=== PATIENT | male | born 1955 | race Caucasian/White ===

== ENCOUNTER 2022-12-20 09:15 | Outpatient (OUT) | payer MEDICARE, OTHER, SELFPAY ==
--- NOTE | 2022-12-20 09:39 | XR_ITS ---
The [address] [address] Patient Name: TY RANGEL MRN: [id number] date: 1955 Sex: M Assigned Patient Location: RAD Current Patient Location: [facility] Accession/Order Number: [id number] Exam Date: 12/20/2022 09:37 Report Date: 12/20/2022 10:35 At the request of: BOBO BARTON Procedure: XR foot LT min 3V PROCEDURE: XR foot LT min 3V COMPARISON: None. HISTORY: LEFT FOOT PAIN FINDINGS: BONES:No acute fracture or dislocation. Moderate to severe diffuse degenerative changes with joint space narrowing and marginal osteophyte formation. Bony remodeling of the first metatarsal-phalangeal joint. There is varus angulation of the second third and fourth proximal phalanges in relation to the metatarsals SOFT TISSUES:Negative. No visible soft tissue swelling. EFFUSION:None visible. OTHER: Negative. XR/XR foot LT min 3V IMPRESSION: Moderate to severe diffuse degenerative changes Electronically authenticated by: SOTERO MONTERROSO Date: 12/20/2022 10:35
== END 2022-12-20 09:16 | disposition home or self-care (01) ==
LOC: RAD 09:19
PROVIDERS: Visit Provider Podiatrist Foot & Ankle Surgery
DX: M19.072 Primary osteoarthritis, left ankle and foot (principal)
CPT/HCPCS: 73630

== ENCOUNTER 2023-04-02 09:20 | Outpatient (OUT) | payer MEDICARE, OTHER, SELFPAY ==
--- NOTE | 2023-04-02 09:24 | ECG_ITS ---
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
[2023-04-02 10:30] LABS: Anion Gap 11.1; Calcium 9.1 mg/dL (8.5-10.1); Carbon Dioxide 29.1 mmol/L (21.0-32.0); Chloride 103 mmol/L (98-107); Estimated GFR (African America >60 (>=60); Estimated GFR (Non-African Ame >60 (>=60); Glucose 108 mg/dL (74-106); Potassium 4.2 mmol/L (3.5-5.1); Sodium 139 mmol/L (136-145)
== END 2023-04-02 09:21 | disposition home or self-care (01) ==
LOC: PST 09:22
PROVIDERS: Visit Provider Podiatrist Foot & Ankle Surgery
DX: Z01.810 Encounter for preprocedural cardiovascular examination (principal); Z01.812 Encounter for preprocedural laboratory examination
CPT/HCPCS: 36415; 80048; 93005; G0463

== ENCOUNTER 2023-06-07 09:09 | Outpatient (OUT) | payer MEDICARE, OTHER, SELFPAY ==
--- OUTSIDE RECORDS SUMMARY | 2023-06-07 09:13 | XMS_ITS | CCD ---
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 Recently Administ ered Medications (unrecognized section and content) Medication Order 08/14/2022 08/15/2022 08/16/2022 ketorolac (TORADOL) injection 30 mg (COMPLETED) 30 mg, IntraMUSCular, ONCE, 1 dose, On Sun08/16/22 at 2100, Do not administer for more than 5 days. 2100 (Given - Provid er: Mary Gaines RN) orphenadrine (NORFLEX) injection 60 mg (COMPLETED) 60 mg, IntraMUSCular, ONCE, 1 dose, On Sun08/16/22 at 2100 2101 (Given - Provid er: Mary Gaines RN) FOR RECORDS PERTAINING TO PATIENTS WHO ARE OR HAVE BEEN ENROLLED IN A CHEMICAL DEPENDENCY/SUBSTANCEABUSE PROGRAM, SOME INFORMATION MAY BE OMITTED. This clinical summary was aggregated from multiple sources. Caution should be exercised in using it in the provision of clinical care. This summary normalizes information from multiple sources, and as a consequence, information in this document may materially change the coding, format and clinical context of patient data. In addition, data may be omitted in some cases. CLINICAL DECISIONS SHOULD BE BASED ON THE PRIMARY CLINICAL RECORDS. [facility] [employer] [facility]. provides no warranty or guarantee of the accuracy or completeness of information in this document.
--- NOTE | 2023-06-07 09:41 | P.GSHP_ITS ---
History of Present Illness History of Present Illness Chief complaint: hallux rigidus left foot Narrative: Patient presents for preadmission testing. Patient reports a long history of left foot pain. The patient states he has toe deformities and a bunion which causes pain when he wears most footwear and is weightbearing. He states he does take Celebrex which helps with his discomfort. He denies numbness, tingling, weakness, or any other complaints. Review of Systems ROS Narrative REVIEW OF SYSTEMS: Negative except as stated in HPI, ten or more systems reviewed. Constitutional: No fever , chills, weakness ENT: No sore throat or epistaxis Cardiovascular: No edema, chest pain, palpitations, or activity intolerance Respiratory: No shortness of breath, cough, or wheezing Gastrointestinal: No abdominal pain, constipation, diarrhea, or vomiting Genitourinary: No dysuria or hematuria Neurological: No numbness, tingling, weakness, or headache Psychiatric: No mood changes [facility] Medical History (Updated 04/02/23 @ 10:10 by Kathy Valdez NP) Primary osteoarthritis, left ankle and foot ?M19.072 - Primary osteoarthritis, left ankle and foot (ICD-10) Hammertoe ?M20.40 - Other hammer toe(s) (acquired), unspecified foot (ICD-10) Toe deformity ?M20.60 - Acquired deformities of toe(s), unspecified, unspecified foot (ICD- 10) Hallux varus (acquired), left foot ?M20.32 - Hallux varus (acquired), left foot (ICD-10) Hallux rigidus, left foot ?M20.22 - Hallux rigidus, left foot (ICD-10) Left foot pain ?M79.672 - Pain in left foot (ICD-10) Arthritis ?M19.90 - Unspecified osteoarthritis, unspecified site (ICD-10) Pneumonia ?J18.9 - Pneumonia, unspecified organism (ICD-10) GERD (gastroesophageal reflux disease) ?K21.9 - Gastro-esophageal reflux disease without esophagitis (ICD-10) Hypertension ?I10 - Essential (primary) hypertension (ICD-10) High cholesterol ?E78.00 - Pure hypercholesterolemia, unspecified (ICD-10) Heart murmur ?R01.1 - Cardiac murmur, unspecified (ICD-10) Prediabetes ?R73.03 - Prediabetes (ICD-10) Hearing loss ?H91.90 - Unspecified hearing loss, unspecified ear (ICD-10) Surgical History (Updated 04/02/23 @ 09:40 by Kathy Valdez NP) H/O of nasal cauterization ?Z98.890 - Other specified postprocedural states (ICD-10) History of hernia repair ?Z98.890 - Other specified postprocedural states (ICD-10) ?Z87.19 - Personal history of other diseases of the digestive system (ICD-10) Family History (Updated 04/02/23 @ 09:40 by Kathy Valdez NP) Other Family history of pulmonary embolism Family history of stroke Social History (Updated 04/02/23 @ 09:35 by Kathy Valdez NP) Within the past year, how often did you have a drink containing alcohol: 2-3 times a week Smoking status: Former smoker Previous occupational history: [employer] Highest level of school completed/degree received: Associate degree: occupational, technical, vocational program Meds Home Medications and Allergies Home Medications Medication Instructions Recorded Confirmed Type arginine 1,000 mg-B12 16.6 1 tab PO DAILY 04/02/23 06/07/23 History mcg-folic acid 66.6 mcg-B6 3.3 mg tablet (L-Arginine Accumulate) atorvastatin 80 mg tablet 80 mg PO DAILY 04/02/23 06/07/23 History celecoxib 100 mg capsule 200 mg PO Q12H 04/02/23 06/07/23 History cetirizine 10 mg tablet 10 mg PO DAILY PRN allergy symptoms 04/02/23 06/07/23 History lisinopril 20 mg tablet 20 mg PO DAILY 04/02/23 06/07/23 History lutein 6 mg capsule 6 mg PO DAILY 04/02/23 06/07/23 History metoprolol succinate 50 mg 50 mg PO DAILY 04/02/23 06/07/23 History tablet,extended release 24 hr pantoprazole 20 mg tablet,delayed 20 mg PO DAILY 04/02/23 06/07/23 History release tadalafil 5 mg tablet 5 mg PO DAILY PRN sexual activity 04/02/23 06/07/23 History alendronate 70 mg tablet 70 mg PO QWEEK 06/07/23 06/07/23 History cholecalciferol (vitamin D3) 125 5,000 unit PO DAILY 06/07/23 06/07/23 History mcg (5,000 unit) tablet Allergies Allergy/AdvReac Type Severity Reaction Status Date / Time No Known Drug Allergies Allergy Verified 06/07/23 09:21 Exam Narrative Exam Narrative: Constitutional: Awake, alert, comfortable, well-appearing, nontoxic, interactive, vital signs as charted Head: Normocephalic, atraumatic Neck: Supple, normal appearance, normal range of motion, no meningeal signs, no lymphadenopathy Respiratory: No respiratory distress, breath sounds clear Cardiovascular: Regular rate and rhythm, strong and regular heart tones Musculoskeletal: Left foot: Obvious deformities of all toes with obvious hallux varus, limited range of motion of the 1st MPJ and pain with palpation, good capillary refill, sensation intact Skin: No rashes or induration, no lesions, only visible skin inspected Neuro: No neurological deficits, normal sensation Psychiatric: Oriented ?3, normal affect Assessment and Plan Assessment and Plan (1) Primary osteoarthritis, left ankle and foot: (2) Hammertoe: (3) Toe deformity: (4) Hallux varus (acquired), left foot: (5) Hallux rigidus, left foot: (6) Left foot pain: Plan Left 1st metatarsal phalangeal joint fusion, osteotomies, hammertoe repairs of toes two through five, plantar plate repair Scheduled with Dr. Rivera 06/21/2023.
[2023-06-07 10:52] LABS: Anion Gap 12.6; BUN Creatinine Ratio 19.6; Calcium 9.4 mg/dL (8.5-10.1); Carbon Dioxide 25.2 mmol/L (21.0-32.0); Chloride 102 mmol/L (98-107); Estimated GFR (African America >60 (>=60); Estimated GFR (Non-African Ame >60 (>=60); Glucose 106 mg/dL (74-106); Potassium 3.8 mmol/L (3.5-5.1); Sodium 136 mmol/L (136-145)
== END 2023-06-07 09:10 | disposition home or self-care (01) ==
LOC: PST 09:09
PROVIDERS: Visit Provider Podiatrist Foot & Ankle Surgery
DX: Z01.812 Encounter for preprocedural laboratory examination (principal); Z01.818 Encounter for other preprocedural examination; M20.22 Hallux rigidus, left foot; M89.70 Major osseous defect, unspecified site
CPT/HCPCS: 80048; G0463

== ENCOUNTER 2023-06-21 08:33 | Day surgery (SDC) | payer MEDICARE, OTHER, SELFPAY ==
[2023-06-07 09:35] VITALS: BP 127/72; PULSE 72; RESP 16; TEMP 36.2; O2SAT 95; BMI 26.9
[2023-06-21] VITALS (12 sets, daily range): BP systolic 107–151; BP diastolic 49–96; PULSE 84–110; RESP 14–36; TEMP 36.3–37.2; O2SAT 90–96; BMI 26.2
--- NOTE | 2023-06-21 | FL_ITS ---
[address] [address] Patient Name: TY RANGEL MRN: [id number] date: 1955 Sex: M Assigned Patient Location: [facility] Current Patient Location: [facility] Accession/Order Number: [id number] Exam Date: 06/21/2023 13:50 Report Date: 06/22/2023 13:47 At the request of: BOBO BARTON Procedure: FL fluoroscopy <1hr NON-READ EXAM: FL fluoroscopy <1hr NON-READ HISTORY: TECHNIQUE: FINDINGS: Please see Operative Report. Electronically authenticated by: RADIOLOGIST NO Date: 06/22/2023 13:47
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
[2023-06-21 08:45] LABS: Basophils Percent Auto 0.4 % (0.2-2.0); Eosinophils Absolute Auto 0.1 10^3/uL (0.0-0.7); Eosinophils Percent Auto 1.5 % (0.9-7.0); Hematocrit 45.9 % (42.0-54.0); Hemoglobin 15.1 g/dL (14.0-18.0); Immature Granulocytes Abs Auto 0.02 10^3/uL (0.00-0.03); Immature Granulocytes Pct Auto 0.2 % (0.0-0.5); Lymphocytes Absolute Auto 1.9 10^3/uL (1.2-3.8); Lymphocytes Percent Auto 19.6 % (20.5-60.0); Mean Corpuscular HGB Conc 32.9 g/dL (29.9-35.2); Mean Corpuscular Hemoglobin 30.4 pg (25.9-34.0); Mean Corpuscular Volume 92.4 fL (80.0-94.0); Mean Platelet Volume 10.4 fL (9.5-13.5); Monocytes Absolute Auto 0.7 10^3/uL (0.3-0.8); Monocytes Percent Auto 6.9 % (1.7-12.0); Neutrophils Absolute Auto 6.8 10^3/uL (1.4-6.5); Neutrophils Percent Auto 71.4 % (43.0-75.0); Platelet Count 238 10^3/uL (150-450); Red Blood Count 4.97 10^6/uL (4.70-6.10); Red Cell Distribution Width 13.1 % (11.0-15.0); White Blood Count 9.6 10^3/uL (4.0-11.0)
[2023-06-21 08:53] LABS: Glucometer 123 mg/dL (74-106)
[2023-06-21] MEDS: LACTATED RINGER'S SOLUTION 1,000 ML 50 ML IV (09:01)
[2023-06-21] MEDS: CEFAZOLIN SODIUM/DEXTROSE,ISO 2 GM/50 ML PIGGYBACK IV (13:25)
[2023-06-21] MEDS: THROMBI-GEL SIZE 40 HEMOSTAT 1 EACH TOPICAL (14:24)
[2023-06-21] MEDS: LACTATED RINGER'S SOLUTION 1,000 ML 125 ML IV (15:03)
--- NOTE | 2023-06-21 16:24 | P.ORON_ITS ---
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 First metatarsal phalangeal joint fusion 2. incision of 1st metatarsal with curettage grafting and drilling of osseous deficit 3. Correction of hammertoes 2-5 with PIPJ arthroplasty 4. Extensor tendon lengthening for metatarsal phalangeal joint contractures 1-3 5. Ruston of distal tibial bone graft 6. Application of short leg splint 7. Intraoperative fluoroscopy examination *All procedures were performed on the LEFT foot INDICATION FOR PROCEDURE: patient is a 68-year-old male who was referred to me by his local employment advisor for surgical consultation. Patient relates that he has had deformity of his left forefoot for 10+ years. He relates during that time it has progressively gotten worse in dysfunction, pain and magnitude of deformity. Despite nonsurgical treatment provided by his local employment advisor his symptoms did not improve therefore was referred to me. 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 There is limited range of motion in the deformities of toes 1- 3were rigid while the 4th and 5th toes were reducible. Radiographically ( x-ray and CT scan) there was cystic formation most notably of his 1st metatarsal head 2nd metatarsal head as well as various midfoot bones. Of note the 1st met head cysts were substantially the largest incorporating much of the metatarsal head and into the shaft of the metatarsal. We discussed 1st MPJ fusion however given the degree of osseous deficit I was concerned of increased chance of nonunion and need for repeat revision therefore we discussed other options including 3-D printed implant and the risks and benefits associated. After much consideration patient wished to undergo the above procedures. INTRAOPERATIVE FINDINGS: 1st metatarsophalangeal joint with end-stage arthrosis with periarticular osteophytes and full-thickness cartilage degeneration and rigid varus defformity. there was difficulty accessing the 1st metatarsal phalangeal joint due to contracture of the extensor tendon. During the reaming process large fluid and soft tissue filled cyst were encountered from the metatarsal head into the mid shaft. Cortical bone quality however was good. In addition the 1st ray was substantially longer than the 2nd requiring the 1st ray to be shortened to re-create a relatively normal metatarsal parabola. lesser metatarsal osteotomy was avoided given the cystic formation noted on the CT scan I was concerned for the ability to obtain stable fixation therefore soft tissue balancing including extensor tendon lengthening and capsulotomy was performed both of which were contracted in varus. Contractures at the PIPJ's of toes two through five were noted and were corrected with PIPJ arthroplasty. PROCEDURE IN DETAIL: Patient was identified in pre op and consent was reviewed. Correct side and site were identified and marked. Pre-op antibiotics were started. Patient was brought to OR suite and place on table in a supine position. General anesthesia was administered. A tourniquet was applied. Operative extremity was prepped and draped in usual sterile fashion. Formal time-out was performed and the foot/ankle were exsanguinated and tourniquet inflated. Incision created over dorsal aspect of the 1st MPJ. Bleeders coagulated. Capsulotomy performed however I was unable to insert the McGlammry elevator due to contracture of the extensor tendon. Therefore the extensive tendon was tenotomized in a Z type fashion and later repaired. I was unable to access the j oint with a McGlamry being inserted into 1st MPJ. Guide Pin place in 1st metatarsal head. Conical reamers used on 1st metatarsal head to remove cartilage and subchondral bone. large cystic formation was encountered and the guide pin was removed. with the use of curettes and rongeurs the cysts were aggressively debrided and fibrous-type soft tissue was excised and passed the back table and sent as specimen. the 1st metatarsal cyst was drilled with 2.0 mm drill bit and irrigated copiously. Then on the back table bone void filler was prepared. during this time the proximal phalanx was prepared for fusion using conical reamers to accommodate the three printed implant. 2.0 mm drill bit was also used on the proximal phalanx and the surgical site was irrigated copiously. The bone void filler was then injected into the 1st metatarsal and allowed to dry. Once dry the deformity was attempted to be reduced and although could be improved the 1st ray remained very long therefore a dorsal to plantar osteotomy was performed of the metatarsal head excising the distal aspect thereby shortening the 1st ray. The conical reamer was used once again on the 1st metatarsal to accommodate the three printed implant. Once the joint was prepared trial implants were used and was noted that the small implant best accommodated the 1st MPJ and allowed deformity correction in all planes. A 2 cm incision was created 2 cm proximal to the ankle joint and just medial to the tibialis anterior tendon. Combination sharp blunt dissection gained access to the distal tibial metaphysis and the periosteum was reflected carefully. An 8 mm bone harvester was drilled into the distal tibial metaphysis and was passed several times to obtain as much bone graft as possible. Gelfoam was then packed into the harvest site and deep closure with absorbable suture was performed followed by closure with skin suture. autograft was then mixed with Proteios & CellConcentrate allograft. The bone graft mixture was then packed into cystic formation of the 1st met head as well as onto the base of the proximal phalanx. Most the bone graft was used to pack into the three printed implant. Three printed implant was then placed and the toe was reduced. I held the toe in reductionn while my virtual assistant for advertisers pins the implant in place. Ensuring maintenance of correction I maintained correction while my virtual assistant for advertisers contoured the dorsal aspe ct of the proximal phalanx and metatarsal to accommodate plate fixation. A 3.5 mm locking 1st MPJ plate was then provisionally fixated and fluoroscopy confirmed deformity correction and satisfactory hardware position. The plate was then permanently fixated accordingly with locking and nonlocking screws in the temporary fixation was removed. surgical site was irrigated. The remaining bone graft was then packed around the implant. fluoroscopy confirmed hardware placement and satisfactory reduction of the great toe. Extensor tendon was then repaired at physiologic tension using absorbable suture. Deep fascia was then closed to prevent any loss of bone graft. With attention to the 2nd digit a dorsal incision was created over the PIPJ and extended to the metatarsal phalangeal joint. Sharp and blunt dissection down to the extensor tendon was performed. Tthe extensor tendon was contracted therefore tenotomized in a Z-type fashion for later repair. Periarticular ligaments surrounding the PIPJ were then released sharply. A sagittal saw was used to remove the proximal phalanx head. although the contracture at the PIPJ was now corrected contracture at the metatarsophalangeal joint persisted therefore the incision was extended more proximally and capsulotomy was performed while protecting the proximal stump of the extensor tendon. McGlamry elevator was then used to further release periarticular soft tissues. I was unable to correct the remaining deformity manually. A 0.062 inch K wire was used then to pin the toe spanning the PIPJ as well as the MPJ while holding the toe in a reduced position parallel to the great toe. The site was flushed with sterile saline. The tendon was repaired with absorbable suture in a lengthened but physiologic position. With attention to the 3rd digit a dorsal incision was created over the PIPJ and extended to the metatarsal phalangeal joint. Sharp and blunt dissection down to the extensor tendon was performed. Tthe extensor tendon was contracted therefore tenotomized in a Z-type fashion for later repair. Periarticular ligaments surrounding the PIPJ were then released sharply. A sagittal saw was used to remove the proximal phalanx head. although the contracture at the PIPJ was now corrected contracture at the metatarsophalangeal joint persisted therefore the incision was extended more proximally and capsulotomy was performed while protecting the proximal stump of the extensor tendon. McGlamry elevator was then used to further release periarticular soft tissues. I was unable to correct the remaining deformity manually. A 0.062 inch K wire was used then to pin the toe spanning the PIPJ as well as the MPJ while holding the toe in a reduced position parallel to the 2nd toe. The site was flushed with sterile saline. The tendon was repaired with absorbable suture in a lengthened but physiologic position. at this point in the procedure the tourniquet had reached a hundred twenty minutes therefore was deflated and a prompt hyperemic response was noted to all of the toes. An elliptical incision was created over the PIPJ of 4th toe. Extensor tendon was incised and reflected to expose the PIPJ. Periarticular ligaments were released. Sagittal saw was use to excised the head of proximal phalanx. The site was irrigated with copious amounts of sterile saline. The extensor tendon was repaired with absorbable stitch and skin was closed with non-absorbable suture. An elliptical incision was created over the PIPJ of 5th toe. Extensor tendon was incised and reflected to expose the PIPJ. Periarticular ligaments were released. Sagittal saw was use to excised the head of proximal phalanx. The site was irrigated with copious amounts of sterile saline. The extensor tendon was repaired with absorbable stitch and skin was closed with non-absorbable suture. all remaining incisions were irrigated then closed in layers A dry sterile dressing consisting of Xeroform on the incisions followed by 4 x 4 gauze, ABDs, and Kerlix were applied. Multiple layers of cast padding were then applied to ensure all bony prominences were well-padded. A plaster posterior splint was then applied which was held in place by Juan Antonio wraps. Capillary refill time to all digits was evaluated and had appropriate response. POSTOPERATIVE PLAN: Discharge home under family's care Post op instructions provided verbally and written prescription(s) were placed in chart NWB operative foot/ankle x3 wk Follow-up in 1 week for cast application vs splint change Implants: [id number] 3D printed patient specific 1st metatarsophalangeal joint implant Medline 3.5 mm 1st MTPJ plate 0.062 inch k-wires Proteios & sparc allograft Anesthesia: regional and General-LMA Surgeon: Murali Rivera Team Assembler: Matteo Rodríguez Estimated blood loss (mL): 25 Pathology: other (cyst 1st metatarsal) Condition: stable Disposition: PACU
[2023-06-21 17:30] LABS: Glucometer 131 mg/dL (74-106)
--- NOTE | 2023-06-21 17:45 | XR_ITS ---
[address] [id number] Patient Name: TY RANGEL MRN: [id number] date: 1955 Sex: M Assigned Patient Location: [facility] Current Patient Location: Accession/Order Number: [id number] Exam Date: 06/21/2023 17:35 Report Date: 06/22/2023 07:08 At the request of: PHILIPPE HOLLAND Procedure: XR foot LT min 3V PROCEDURE: XR foot LT min 3V COMPARISON: 12/20/2022 HISTORY: Postop x-ray PACU FINDINGS: BONES:Interval fusion first metatarsal-phalangeal joint with spacer placement. Resection head of the second and third proximal phalanges with placement of external fixation wires and reduction of angulation. Moderate diffuse degenerative changes SOFT TISSUES:Postsurgical swelling and subcutaneous emphysema EFFUSION:None visible. OTHER: Negative. XR/XR foot LT min 3V IMPRESSION: Postsurgical changes detailed above Electronically authenticated by: SOTERO MONTERROSO Date: 06/22/2023 07:08
[2023-06-21] MEDS: ONDANSETRON 4 MG RAPDIS TABLET SL (18:28)
--- NOTE | 2023-06-21 18:29 | PC.NURSE ---
Patient getting clothes n and became nauseated. Gave a onetime dose of zofran to help his nausea.
== END 2023-06-21 18:57 | disposition home or self-care (01) ==
PROVIDERS: Anesthesiology; Visit Provider Podiatrist Foot & Ankle Surgery
PROC: (CPT 20902; principal; 2023-06-21 10:30)
DX: M20.22 Hallux rigidus, left foot (principal); M20.42 Other hammer toe(s) (acquired), left foot; I10 Essential (primary) hypertension; M85.672 Other cyst of bone, left ankle and foot; M19.072 Primary osteoarthritis, left ankle and foot; M89.772 Major osseous defect, left ankle and foot; M20.32 Hallux varus (acquired), left foot; K21.9 Gastro-esophageal reflux disease without esophagitis; E78.00 Pure hypercholesterolemia, unspecified; Z87.01 Personal history of pneumonia (recurrent); R73.03 Prediabetes; H91.90 Unspecified hearing loss, unspecified ear; Z87.891 Personal history of nicotine dependence; Z79.899 Other long term (current) drug therapy; M20.5X2 Other deformities of toe(s) (acquired), left foot; M25.872 Other specified joint disorders, left ankle and foot
CPT/HCPCS: 20902; 28208 ×3; 28285 ×4; 28750; 36415; 64445; 64450; 73630; 76000; 76942; 82948; 85025; 88305; 88311; A6550; C1713; C1776; J0690; J1100; J1170; J1805; J1885; J2405; J2704; J2795; J3010; Q0162

== ENCOUNTER 2023-07-11 11:30 | Outpatient (OUT) | payer MEDICARE, OTHER, SELFPAY ==
--- NOTE | 2023-07-11 | XR_ITS ---
The [address] [address] Patient Name: TY RANGEL MRN: [id number] date: 1955 Sex: M Assigned Patient Location: [facility] Current Patient Location: Accession/Order Number: [id number] Exam Date: 07/11/2023 11:40 Report Date: 07/12/2023 07:17 At the request of: BOBO BARTON Procedure: XR foot LT min 3V PROCEDURE: XR foot LT min 3V HISTORY: LEFT FOOT PAIN COMPARISON: XR foot left 06/21/2023 FINDINGS: BONES:Stable mechanical fusion of first metatarsophalangeal joint and pinning of the second third toes. Prior resection of heads of the second through 5th proximal phalanges. Moderate degenerative changes the midfoot. SOFT TISSUES:No visible soft tissue swelling. EFFUSION:None visible. OTHER: Negative. XR/XR foot LT min 3V IMPRESSION: 1. Stable surgical changes without evidence of hardware failure or change in alignment. Electronically authenticated by: GILMA GUARDADO Date: 07/12/2023 07:17
--- OUTSIDE RECORDS SUMMARY | 2023-07-11 11:38 | XMS_ITS | CCD ---
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 [facility] Hematocrit (Bld) [Volume fraction] 40.1 % Low 41.0 - 53.0 % [facility] Hemoglobin (Bld) [Mass/Vol] 13.5 g/dL 13.5 - 17.5 g/dL [facility] Immature granulocytes (Bld) [#/Vol] 0.01 10*3/uL [facility] Immature granulocytes/100 WBC (Bld) 0 % 0 - 5 % [facility] Interpretation and review of laboratory results Abnormal [facility] Lymphocytes/100 WBC (Bld) 21 % 13 - 44 % [facility] Lymphocytes/100 WBC (Bld) 1.74 % [facility] MCH (RBC) [Entitic mass] 30.6 pg 26.0 - 34.0 pg [facility] MCHC (RBC) [Mass/Vol] 33.7 g/dL 31.0 - 37.0 g/dL [facility] MCV (RBC) [Entitic vol] 90.9 fL 80.0 - 100.0 fL [facility] Monocytes/100 WBC (Bld) 6 % 5 - 9 % [facility] Monocytes/100 WBC (Bld) 0.49 % [facility] Neutrophils/100 WBC (Bld) 71 % 39 - 75 % [facility] Platelet mean volume (Bld) [Entitic vol] 10.9 fL 6.0 - 12.0 fL [facility] Platelets (Bld) [#/Vol] 289 10*3/uL [facility] RBC (Bld) [#/Vol] 4.41 10*6/uL Low 4.50 - 5.9 0 m/uL [facility] Segmented neutrophils/100 WBC (Bld) 6.03 % [facility] WBC other (Bld) [#/Vol] 8.5 [facility] CBC with Diffon 06-30-2023 Abs. Basophil 0.02 k/uL Normal 0.00-0.[address] [facility] Comment on above: Performed By: #### L IPR #### [address] [address] Flooring Grader: He Driscoll MD Abs.Imm.Granulocyte 0.01 k/uL Normal 0.00-0.30 [facility] Comment on above: Performed By: #### L IPR #### [facility] [employer] [address] [place] [phone] Flooring Grader: He Driscoll MD Abs.Neutrophil (Seg) 6.03 k/uL Normal 2.1-6.5 [facility] Comment on above: Performed By: #### L IPR #### [facility] [employer] [address] [place] [phone] Flooring Grader: He Driscoll MD Basophils/100 WBC (Bld) 0 % Normal 0-2 [facility] Comment on above: Performed By: #### L IPR #### [facility] [employer] [address] [place] [phone] Flooring Grader: He Driscoll MD Eosinophils (Bld) [#/Vol] 0.17 10*3/uL Normal 0.00-0.40 [facility] Comment on above: Performed By: #### L IPR #### [facility] [employer] [address] [place] [phone] Flooring Grader: He Driscoll MD Eosinophils/100 WBC (Bld) 2 % Normal 0-5 [facility] Comment on above: Performed By: #### L IPR #### [address] [address] Flooring Grader: He Driscoll MD Erythrocyte distribution width (RBC) [Ratio] 13.0 % Normal 12.1-15.2 [facility] Comment on above: Performed By: #### L IPR #### [address] [address] Flooring Grader: He Driscoll MD Hematocrit (Bld) [Volume fraction] 40.1 % Low 41.0-53.0 [facility] Comment on above: Performed By: #### L IPR #### [address] [address] Flooring Grader: He Driscoll MD Hemoglobin (Bld) [Mass/Vol] 13.5 g/dL Normal 13.5-17.5 [facility] Comment on above: Performed By: #### L IPR #### [address] [address] Flooring Grader: He Driscoll MD Immature granulocytes/100 WBC (Bld) 0 % Normal 0-5 [facility] Comment on above: Performed By: #### L IPR #### [address] [address] Flooring Grader: He Driscoll MD Lymphocytes (Bld) [#/Vol] 1.74 10*3/uL Normal 1.00-4.80 [facility] Comment on above: Performed By: #### L IPR #### [address] [address] Flooring Grader: He Driscoll MD Lymphocytes/100 WBC (Bld) 21 % Normal 13-44 [facility] Comment on above: Performed By: #### L IPR #### [address] [address] Flooring Grader: He Driscoll MD MCH (RBC) [Entitic mass] 30.6 pg Normal 26.0-34.0 [facility] Comment on above: Performed By: #### L IPR #### [address] [address] Flooring Grader: He Driscoll MD MCHC (RBC) [Mass/Vol] 33.7 g/dL Normal 31.0-37.0 [facility] Comment on above: Performed By: #### L IPR #### [address] [address] Flooring Grader: He Driscoll MD MCV (RBC) [Entitic vol] 90.9 fL Normal 80.0-100.0 [facility] Comment on above: Performed By: #### L IPR #### [address] [address] Flooring Grader: He Driscoll MD Monocytes (Bld) [#/Vol] 0.49 10*3/uL Normal 0.00-1.00 [facility] Comment on above: Performed By: #### L IPR #### [address] [address] Flooring Grader: He Driscoll MD Monocytes/100 WBC (Bld) 6 % Normal 5-9 [facility] Comment on above: Performed By: #### L IPR #### [address] [address] Flooring Grader: He Driscoll MD Neutrophil (Seg) 71 % Normal 39-75 [facility] Comment on above: Performed By: #### L IPR #### [address] [address] Flooring Grader: He Driscoll MD Platelet mean volume (Bld) [Entitic vol] 10.9 fL Normal 6.0-12.0 [facility] Comment on above: Performed By: #### L IPR #### [address] [place] [address] Flooring Grader: He Driscoll MD Platelets (Bld) [#/Vol] 289 10*3/uL Normal 140-450 [facility] Comment on above: Performed By: #### L IPR #### [facility] [employer] [facility] [place] [address] Flooring Grader: He Driscoll MD RBC (Bld) [#/Vol] 4.41 10*6/uL Low 4.50-5.90 [facility] Comment on above: Performed By: #### L IPR #### [address] [address] Flooring Grader: He Driscoll MD WBC (Bld) [#/Vol] 8.5 10*3/uL Normal 3.5-11.0 [facility] Comment on above: Performed By: #### L IPR #### [address] [address] Flooring Grader: He Driscoll MD Comp Metabolic Pr/rfx MGon 0 - Albumin [Mass/Vol] 3.4 g/dL Low 3.5-5.2 [facility] Comment on above: Performed By: #### L IPR #### [address] [address] Flooring Grader: He Driscoll MD Alkaline Phos 249 U/L High 40-[address] [facility] Comment on above: Performed By: #### L IPR #### [facility] [place] [address] Flooring Grader: He Driscoll MD ALT [Catalytic activity/Vol] 286 U/L High 5-41 [facility] Comment on above: Performed By: #### L IPR #### [facility] [employer] [address] [place] [phone] Flooring Grader: He Driscoll MD Anion gap [Moles/Vol] 16 mmol/L Normal 9-17 [facility] Comment on above: Performed By: #### L IPR #### [address] [address] Flooring Grader: He Driscoll MD AST [Catalytic activity/Vol] 151 U/L High <40 [facility] Comment on above: Performed By: #### L IPR #### [address] [address] Flooring Grader: He Driscoll MD Bilirubin [Mass/Vol] 0.6 mg/dL Normal 0.3-1.2 [facility] Comment on above: Performed By: #### L IPR #### [address] [address] Flooring Grader: He Driscoll MD BUN/CRE Ratio 19 Normal 9-[address] [facility] Comment on above: Performed By: #### L IPR #### [address] [address] Flooring Grader: He Driscoll MD Calcium [Mass/Vol] 9.2 mg/dL Normal 8.6-10.4 [facility] Comment on above: Performed By: #### L IPR #### [address] [address] Flooring Grader: He Driscoll MD Chloride [Moles/Vol] 104 mmol/L Normal 98-107 [facility] Comment on above: Performed By: #### L IPR #### [address] [address] Flooring Grader: He Driscoll MD CO2 [Moles/Vol] 20 mmol/L Normal 20-31 [facility] Comment on above: Performed By: #### L IPR #### [address] [address] Flooring Grader: He Driscoll MD Creatinine [Mass/Vol] 0.9 mg/dL Normal 0.7-1.2 [facility] Comment on above: Performed By: #### L IPR #### [facility] [employer] [address] [place] [phone] Flooring Grader: He Driscoll MD GFR/1.73 sq M.predicted among non-blacks MDRD (S/P/Bld) [Vol rate/Area] mL/min/{1.73_m2} Normal >60 [facility] Comment on above: Result Comment: These [...] affects renal tubular secretion. Performed By: #### L IPR #### [facility] [address] [place] [phone] Flooring Grader: He Driscoll MD Glucose [Mass/Vol] 97 mg/dL Normal 70-99 [facility] Comment on above: Performed By: #### L IPR #### [facility] [address] [place] [address] Flooring Grader: He Driscoll MD Potassium [Moles/Vol] 3.6 mmol/L Low 3.7-5.3 [facility] Comment on above: Performed By: #### L IPR #### [facility] [address] [place] [address] [phone] Flooring Grader: He Driscoll MD Protein [Mass/Vol] 6.6 g/dL Normal 6.4-8.3 [facility] Comment on above: Performed By: #### L IPR #### [facility] [address] [place] [address] [phone] Flooring Grader: He Driscoll MD Sodium [Moles/Vol] 140 mmol/L Normal 135-144 [facility] Comment on above: Performed By: #### L IPR #### [facility] [address] [place] [address] [phone] Flooring Grader: He Driscoll MD Urea nitrogen [Mass/Vol] 17 mg/dL Normal 8-23 [facility] Comment on above: Performed By: #### L IPR #### [facility] [address] [place], [place] [phone] Flooring Grader: He Driscoll MD Comprehensive Metabolic Pane l w/ Reflex to MGon 06-30-2023 Albumin [Mass/Vol] 3.4 g/dL Low 3.5 - 5.2 g/dL [facility] ALP [Catalytic activity/Vol] 249 U/L High 40 - 129 U/L [facility] ALT [Catalytic activity/Vol] 286 U/L High 5 - 41 U/L [facility] Anion gap [Moles/Vol] 16 mmol/L 9 - 17 mmol/L [facility] AST [Catalytic activity/Vol] 151 U/L High NINF - 40 U/L [facility] Bilirubin [Mass/Vol] 0.6 mg/dL 0.3 - 1 .2 mg/dL [facility] Calcium [Mass/Vol] 9.2 mg/dL 8.6 - 10. 4 mg/dL [facility] Chloride [Moles/Vol] 104 mmol/L 98 - 10 7 mmol/L [facility] CO2 [Moles/Vol] 20 mmol/L 20 - 31 mmol/L [facility] Creatinine [Mass/Vol] 0.9 mg/dL 0.7 - 1.2 mg/dL [facility] GFR/1.73 sq M.predicted MDRD (S/P/Bld) [Vol rate/Area] - PINF [facility] Comment on above: These results are not [...] that affects renal tubular secretion. Glucose [Mass/Vol] 97 mg/dL 70 - 99 mg/dL [facility] Potassium [Moles/Vol] 3.6 mmol/L Low 3.7 - 5.3 mmol/L [facility] Protein [Mass/Vol] 6.6 g/dL 6.4 - 8.3 g/dL [facility] Sodium [Moles/Vol] 140 mmol/L 135 - 144 mmol/L [facility] Urea nitrogen [Mass/Vol] 17 mg/dL 8 - 23 mg/dL [facility] Urea nitrogen/Creatinine [Mass ratio] 19 mg/mg 9 - 20 [facility] EKG 12 Leadon 06-30-2023 Atrial Rate 69 BPM [facility] P [place] 52 degrees [facility] P-R Interval 204 ms [facility] Q-T Interval 388 ms [facility] QRS Duration 96 ms [facility] QTc Calculation (Bazett) 415 ms [facility] R [place] 28 degrees [facility] T [place] 21 degrees [facility] Ventricular Rate 69 BPM [facility] Normal sinus rhythm Normal [facility] Mychal Fontana MD - 06/30/2023 Normal sinus rhythm Normal ECG [facility] EKG [facility] Lipaseon 06-30-2023 Lipase [Catalytic activity/Vol] 137 U/L High 13-60 [facility] Comment on above: Performed By: #### L IPR #### [facility] [employer] [facility] [place] [address] Flooring Grader: He Driscoll MD Lipase [Catalytic activity/Vol] 137 U/L High 13 - 60 U/L [facility] Lipid Panelon 06-30-2023 Cholesterol [Mass/Vol] 100 mg/dL NINF - 200 mg/dL [facility] Comment on above: Cholesterol Guidelines: <200 Desirable 200-240 Borderline >240 Undesirable Cholesterol in HDL [Mass/Vol] 26 mg/dL Low 40 - PINF mg/dL [facility] Comment on above: HDL Guidelines: <40 Undesirable 40-59 Borderline >59 Desirable Cholesterol in LDL [Mass/Vol] 54 mg/dL 0 - 130 mg/dL [facility] Comment on above: LDL Guidelines: <100 Desirable 100-129 Near to/above Desirable 130-159 Borderline >159 Undesirable Direct (measured) LDL and calculated LDL are not interchangeable tests. Cholesterol.total/Cho lesterol in HDL [Mass ratio] 3.8 {ratio} NINF - 5 [facility] Interpretation and review of laboratory results Abnormal [facility] Triglyceride [Mass/Vol] 99 mg/dL NINF - 150 mg/dL [facility] Comment on above: Triglyceride Guidelines: <150 Desirable 150-199 Borderline 200-499 High >499 Very high Based on AHA Guidelines for fasting triglyceride, February 2012. [facility] Lipid Profileon 06-30-2023 Cholesterol [Mass/Vol] 100 mg/dL Normal <200 [facility] Comment on above: Result Comment: Cholesterol Guidelines: <200 Desirable 200-240 Borderline >240 Undesirable Performed By: #### L IPR #### [employer] [address] [place] [address] Flooring Grader: He Driscoll MD Cholesterol in HDL [Mass/Vol] 26 mg/dL Low >40 [facility] Comment on above: Result Comment: HDL Guidelines: <40 Undesirable 40-59 Borderline >59 Desirable Performed By: #### L IPR #### [employer] [address] [place], [place] [phone] Flooring Grader: He Driscoll MD Cholesterol in LDL [Mass/Vol] 54 mg/dL Normal 0-130 [facility] Comment on above: Result Comment: LDL Guidelines: <100 Desirable 100-129 Near to/above Desirable 130-159 Borderline >159 Undesirable Direct (measured) LDL and calculated LDL are not interchangeable tests. Performed By: #### L IPR #### [employer] [address] [place] [address] [phone] Flooring Grader: He Driscoll MD Cholesterol.total/Cho lesterol in HDL [Mass ratio] 3.8 {ratio} Normal <5 [facility] Comment on above: Performed By: #### L IPR #### [facility] [address] [place], [place] [phone] Flooring Grader: He Driscoll MD Triglyceride [Mass/Vol] 99 mg/dL Normal <150 [facility] Comment on above: Result Comment: Triglyceride Guidelines: <150 Desirable 150-199 Borderline 200-499 High >499 Very high Based on AHA Guidelines for fasting triglyceride, February 2012. Performed By: #### L IPR #### [facility] [employer] [address] [place], [place] [phone] Flooring Grader: He Driscoll MD No Panel Informationon 06-[address] [facility] Interpretation and review of laboratory results Abnormal [facility] CBC with Auto Differentialon 06-29-2023 Basophils (Bld) [#/Vol] 0.02 10*3/uL [facility] Basophils/100 WBC (Bld) 0 % 0 - 2 % [facility] Eosinophils (Bld) [#/Vol] 0.09 10*3/uL [facility] Eosinophils/100 WBC (Bld) 1 % 0 - 5 % [facility] Erythrocyte distribution width (RBC) [Ratio] 12.9 % 12.1 - 15.2 % [facility] Hematocrit (Bld) [Volume fraction] 42.9 % 41.0 - 53.0 % [facility] Hemoglobin (Bld) [Mass/Vol] 14.5 g/dL 13.5 - 17.5 g/dL [facility] Immature granulocytes (Bld) [#/Vol] 0.01 10*3/uL [facility] Immature granulocytes/100 WBC (Bld) 0 % 0 - 5 % [facility] Interpretation and review of laboratory results Abnormal [facility] Lymphocytes/100 WBC (Bld) 9 % Low 13 - 44 % [facility] Lymphocytes/100 WBC (Bld) 1.05 % [facility] MCH (RBC) [Entitic mass] 30.7 pg 26.0 - 34.0 pg [facility] MCHC (RBC) [Mass/Vol] 33.8 g/dL 31.0 - 37.0 g/dL [facility] MCV (RBC) [Entitic vol] 90.7 fL 80.0 - 100.0 fL [facility] Monocytes/100 WBC (Bld) 7 % 5 - 9 % [facility] Monocytes/100 WBC (Bld) 0.84 % [facility] Neutrophils/100 WBC (Bld) 83 % High 39 - 75 % [facility] Platelet mean volume (Bld) [Entitic vol] 10.6 fL 6.0 - 12.0 fL [facility] Platelets (Bld) [#/Vol] 308 10*3/uL [facility] RBC (Bld) [#/Vol] 4.73 10*6/uL 4.50 - 5.9 0 m/uL [facility] Segmented neutrophils/100 WBC (Bld) 9.48 % High [facility] WBC other (Bld) [#/Vol] 11.5 High [facility] CBC with Diffon 06-29-2023 Abs. Basophil 0.02 k/uL Normal 0.00-0.[address] [facility] Comment on above: Performed By: #### C DP, LACTIC, LIP, CP #### [facility] [address] [place] [address] Flooring Grader: Shaq Mullen MD Abs.Imm.Granulocyte 0.01 k/uL Normal 0.00-0.30 [facility] Comment on above: Performed By: #### C DP, LACTIC, LIP, CP #### [facility] [address] [place] [address] Flooring Grader: Shaq Mullen MD Abs.Neutrophil (Seg) 9.48 k/uL High 2.1-6.5 [facility] Comment on above: Performed By: #### C DP, LACTIC, LIP, CP #### [facility] [address] [place] [phone] Flooring Grader: Shaq Mullen MD Basophils/100 WBC (Bld) 0 % Normal 0-2 [facility] Comment on above: Performed By: #### C DP, LACTIC, LIP, CP #### [facility] [address] [place] [phone] Flooring Grader: Shaq uMllen MD Eosinophils (Bld) [#/Vol] 0.09 10*3/uL Normal 0.00-0.40 [facility] Comment on above: Performed By: #### C DP, LACTIC, LIP, CP #### [facility] [address] [place] [address] Flooring Grader: Shaq Mullen MD Eosinophils/100 WBC (Bld) 1 % Normal 0-5 [facility] Comment on above: Performed By: #### C DP, LACTIC, LIP, CP #### [facility] [address] [place] [phone] Flooring Grader: Shaq Mullen MD Erythrocyte distribution width (RBC) [Ratio] 12.9 % Normal 12.1-15.2 [facility] Comment on above: Performed By: #### C DP, LACTIC, LIP, CP #### [facility] [address] [place] [phone] Flooring Grader: Shaq Mullen MD Hematocrit (Bld) [Volume fraction] 42.9 % Normal 41.0-53.0 [facility] Comment on above: Performed By: #### C DP, LACTIC, LIP, CP #### [facility] [address] [place] [phone] Flooring Grader: Shaq Mullen MD Hemoglobin (Bld) [Mass/Vol] 14.5 g/dL Normal 13.5-17.5 [facility] Comment on above: Performed By: #### C DP, LACTIC, LIP, CP #### [facility] [address] [place] [phone] Flooring Grader: Shaq Mullen MD Immature granulocytes/100 WBC (Bld) 0 % Normal 0-5 [facility] Comment on above: Performed By: #### C DP, LACTIC, LIP, CP #### [facility] [address] [place] [address] Flooring Grader: Shaq Mullen MD Lymphocytes (Bld) [#/Vol] 1.05 10*3/uL Normal 1.00-4.80 [facility] Comment on above: Performed By: #### C DP, LACTIC, LIP, CP #### [facility] [address] [place] [address] Flooring Grader: Shaq Mullen MD Lymphocytes/100 WBC (Bld) 9 % Low 13-44 [facility] Comment on above: Performed By: #### C DP, LACTIC, LIP, CP #### [facility] [address] [place] [phone] Flooring Grader: Shaq Mullen MD MCH (RBC) [Entitic mass] 30.7 pg Normal 26.0-34.0 [facility] Comment on above: Performed By: #### C DP, LACTIC, LIP, CP #### [facility] [address] [place] [address] Flooring Grader: Shaq Mullen MD MCHC (RBC) [Mass/Vol] 33.8 g/dL Normal 31.0-37.0 [facility] Comment on above: Performed By: #### C DP, LACTIC, LIP, CP #### [facility] [address] [place] [address] Flooring Grader: Shaq Mullen MD MCV (RBC) [Entitic vol] 90.7 fL Normal 80.0-100.0 [facility] Comment on above: Performed By: #### C DP, LACTIC, LIP, CP #### [facility] [address] [place], [place] [phone] Flooring Grader: Shaq Mullen MD Monocytes (Bld) [#/Vol] 0.84 10*3/uL Normal 0.00-1.00 [facility] Comment on above: Performed By: #### C DP, LACTIC, LIP, CP #### [facility] [address] [place], [place] [phone] Flooring Grader: Shaq Mullen MD Monocytes/100 WBC (Bld) 7 % Normal 5-9 [facility] Comment on above: Performed By: #### C DP, LACTIC, LIP, CP #### [facility] [address] [place] [address] Flooring Grader: Shaq Mullen MD Neutrophil (Seg) 83 % High 39-75 [facility] Comment on above: Performed By: #### C DP, LACTIC, LIP, CP #### [facility] [address] [place], [place] [phone] Flooring Grader: Shaq Mullen MD Platelet mean volume (Bld) [Entitic vol] 10.6 fL Normal 6.0-12.0 [facility] Comment on above: Performed By: #### C DP, LACTIC, LIP, CP #### [facility] [address] [place], [place] [phone] Flooring Grader: Shaq Mullen MD Platelets (Bld) [#/Vol] 308 10*3/uL Normal 140-450 [facility] Comment on above: Performed By: #### C DP, LACTIC, LIP, CP #### [facility] [address] [place], [place] [phone] Flooring Grader: Shaq Mullen MD RBC (Bld) [#/Vol] 4.73 10*6/uL Normal 4.50-5.90 [facility] Comment on above: Performed By: #### C DP, LACTIC, LIP, CP #### [facility] [address] [place] [address] Flooring Grader: Shaq Mullen MD WBC (Bld) [#/Vol] 11.5 10*3/uL High 3.5-11.0 [facility] Comment on above: Performed By: #### C DP, LACTIC, LIP, CP #### [facility] [address] [place] [address] Flooring Grader: Shaq Mullen MD CT ABDOMEN PELVIS W IV CONTR Daksha 06-29-2023 CT ABDOMEN PELVIS W IV CONTRAST EXAMINATION: CT ABDOMEN PELVIS W IV CONTRAST, 06/29/2023 8:57 AM EST HISTORY: Acute pancreatitis COMPARISON: None. TECHNIQUE: CT scan of the abdomen and pelvis was performed with IV contrast. CT dose reduction technique was used, including Automated Exposure Control. FINDINGS: Lung bases appear to be free of consolidation and effusion. The heart and pericardial structures appear to be within normal limits. CT ABDOMEN: The liver is at the upper limits of normal for size. Subcentimeter hepatic hypoattenuating focus in the anterior aspect of the left lobe of the liver is too small to adequately characterize by CT but statistically likely represents a cyst or hemangioma. The gallbladder is hydropic and contains multiple stones. Spleen is within normal limits. Adrenal glands are within normal limits. The kidneys appear to be symmetric in size and enhancement. There is a parapelvic cyst at the inferior pole of the right kidney. No hydronephrosis or nephrolithiasis. There is very mild fat reticulation and stranding surrounding the pancreas. No evidence of pseudocyst. No pancreatic necrosis. No organized collection is identified. The large and small bowel loops in the upper abdomen do not appear to be obstructed or thickened. There is segmental underdistention of the hepatic flexure of the colon, nonspecific. There is diverticulosis coli. Vascular structures in the retroperitoneum appear to be normal in caliber and configuration. No adenopathy. CT PELVIS: No evidence of acute appendicitis. No free fluid or fluid collections. The urinary bladder is within normal limits. Patient is status post left-sided inguinal hernia repair. No distal ureteral calcifications are identified. Evaluation of the osseous elements demonstrate moderate multilevel thoracolumbar spondylosis with degenerative changes in the lumbar spine contributing to moderate canal and advanced multilevel foraminal stenosis. IMPRESSION: 1. There is very mild fat reticulation and stranding surrounding the pancreas with no evidence of peripancreatic fluid or pseudocyst. Mild acute pancreatitis could have this appearance. 2. There is a hydropic appearance of the gallbladder and cholelithiasis. No obvious gallbladder wall thickening. Recommend correlation for symptoms of right upper quadrant pain and if warranted, right upper quadrant sonography. 3. Additional incidental findings include parapelvic cysts at the inferior pole of the right kidney, colonic diverticulosis, and postoperative changes related to prior inguinal hernia repair on the left. Interpreted by: Gagandeep Delcid MD Signed by: Gagandeep Delcid MD 06/29/23 Final result Normal [facility] CT Abdomen and Pelvis W cont rast Alistair 06-29-2023 1. There is very mild fat reticulation and stranding surrounding the pancreas with no evidence of peripancreatic fluid or pseudocyst. Mild acute pancreatitis could have this appearance. 2. There is a hydropic appearance of the gallbladder and cholelithiasis. No obvious gallbladder wall thickening. Recommend correlation for symptoms of right upper quadrant pain and if warranted, right upper quadrant sonography. 3. Additional incidental findings include parapelvic cysts at the inferior pole of the right kidney, colonic diverticulosis, and postoperative changes related to prior inguinal hernia repair on the left. [facility] EXAMINATION: CT ABDOMEN PELVIS W IV CONTRAST, 06/29/2023 8:57 AM EST HISTORY: Acute pancreatitis COMPARISON: None. TECHNIQUE: CT scan of the abdomen and pelvis was performed with IV contrast. CT dose reduction technique was used, including Automated Exposure Control. FINDINGS: Lung bases appear to be free of consolidation and effusion. The heart and pericardial structures appear to be within normal limits. CT ABDOMEN: The liver is at the upper limits of normal for size. Subcentimeter hepatic hypoattenuating focus in the anterior aspect of the left lobe of the liver is too small to adequately characterize by CT but statistically likely represents a cyst or hemangioma. The gallbladder is hydropic and contains multiple stones. Spleen is within normal limits. Adrenal glands are within normal limits. The kidneys appear to be symmetric in size and enhancement. There is a parapelvic cyst at the inferior pole of the right kidney. No hydronephrosis or nephrolithiasis. There is very mild fat reticulation and stranding surrounding the pancreas. No evidence of pseudocyst. No pancreatic necrosis. No organized collection is identified. The large and small bowel loops in the upper abdomen do not appear to be obstructed or thickened. There is segmental underdistention of the hepatic flexure of the colon, nonspecific. There is diverticulosis coli. Vascular structures in the retroperitoneum appear to be normal in caliber and configuration. No adenopathy. CT PELVIS: No evidence of acute appendicitis. No free fluid or fluid collections. The urinary bladder is within normal limits. Patient is status post left-sided inguinal hernia repair. No distal ureteral calcifications are identified. Evaluation of the osseous elements demonstrate moderate multilevel thoracolumbar spondylosis with degenerative changes in the lumbar spine contributing to moderate canal and advanced multilevel foraminal stenosis. [facility] R[facility] Gagandeep Delcid MD - 06/29/2023 EXAMINATION: CT ABDOMEN PELVIS W IV CONTRAST, 06/29/2023 8:57 AM EST HISTORY: Acute pancreatitis COMPARISON: None. TECHNIQUE: CT scan of the abdomen and pelvis was performed with IV contrast. CT dose reduction technique was used, including Automated Exposure Control. FINDINGS: Lung bases appear to be free of consolidation and effusion. The heart and pericardial structures appear to be within normal limits. CT ABDOMEN: The liver is at the upper limits of normal for size. Subcentimeter hepatic hypoattenuating focus in the anterior aspect of the left lobe of the liver is too small to adequately characterize by CT but statistically likely represents a cyst or hemangioma. The gallbladder is hydropic and contains multiple stones. Spleen is within normal limits. Adrenal glands are within normal limits. The kidneys appear to be symmetric in size and enhancement. There is a parapelvic cyst at the inferior pole of the right kidney. No hydronephrosis or nephrolithiasis. There is very mild fat reticulation and stranding surrounding the pancreas. No evidence of pseudocyst. No pancreatic necrosis. No organized collection is identified. The large and small bowel loops in the upper abdomen do not appear to be obstructed or thickened. There is segmental underdistention of the hepatic flexure of the colon, nonspecific. There is diverticulosis coli. Vascular structures in the retroperitoneum appear to be normal in caliber and configuration. No adenopathy. CT PELVIS: No evidence of acute appendicitis. No free fluid or fluid collections. The urinary bladder is within normal limits. Patient is status post left-sided inguinal hernia repair. No distal ureteral calcifications are identified. Evaluation of the osseous elements demonstrate moderate multilevel thoracolumbar spondylosis with degenerative changes in the lumbar spine contributing to moderate canal and advanced multilevel foraminal stenosis. IMPRESSION: 1. There is very mild fat reticulation and stranding surrounding the pancreas with no evidence of peripancreatic fluid or pseudocyst. Mild acute pancreatitis could have this appearance. 2. There is a hydropic appearance of the gallbladder and cholelithiasis. No obvious gallbladder wall thickening. Recommend correlation for symptoms of right upper quadrant pain and if warranted, right upper quadrant sonography. 3. Additional incidental findings include parapelvic cysts at the inferior pole of the right kidney, colonic diverticulosis, and postoperative changes related to prior inguinal hernia repair on the left. [facility] Radiology Study observation (narrative) [facility] CT Abdomen and Pelvis W cont rast IVOrdered By: Gagandeep Delcid on 06-29-2023 [facility] Work Phone: Comp Metabolic Profon 2023 Albumin [Mass/Vol] 4.1 g/dL Normal 3.5-5.2 [facility] Comment on above: Performed By: #### C DP, LACTIC, LIP, CP #### [facility] [address] [place], [place] [phone] Flooring Grader: Shaq Mullen MD Alkaline Phos 265 U/L High 40-[address] [facility] Comment on above: Performed By: #### C DP, LACTIC, LIP, CP #### [facility] [address] [place] [address] Flooring Grader: Shaq Mullen MD ALT [Catalytic activity/Vol] 343 U/L High 5-41 [facility] Comment on above: Performed By: #### C DP, LACTIC, LIP, CP #### [facility] [address], [place] [id number] Flooring Grader: Shaq Mullen MD Anion gap [Moles/Vol] 11 mmol/L Normal 9-17 [facility] [place] [facility] Comment on above: Performed By: #### C DP, LACTIC, LIP, CP #### [facility] [address] [place] [id number] Flooring Grader: Shaq Mullen MD AST [Catalytic activity/Vol] 326 U/L High <40 [facility] Comment on above: Performed By: #### C DP, LACTIC, LIP, CP #### [facility] [address] [place] [phone] Flooring Grader: Shaq Mullen MD Bilirubin [Mass/Vol] 1.7 mg/dL High 0.3-1.2 [facility] Comment on above: Performed By: #### C DP, LACTIC, LIP, CP #### [facility] [address] [place] [address] Flooring Grader: Shaq Mullen MD BUN/CRE Ratio 23 High 9-[address] [facility] Comment on above: Performed By: #### C DP, LACTIC, LIP, CP #### [facility] [address] [place] [id number] Flooring Grader: Shaq Mullen MD Calcium [Mass/Vol] 10.0 mg/dL Normal 8.6-10.4 [facility] Comment on above: Performed By: #### C DP, LACTIC, LIP, CP #### [facility] [address] [place] [id number] Flooring Grader: Shaq Mullen MD Chloride [Moles/Vol] 101 mmol/L Normal 98-107 [facility] Comment on above: Performed By: #### C DP, LACTIC, LIP, CP #### [facility] [address] [place] [address] Flooring Grader: Shaq Mullen MD CO2 [Moles/Vol] 26 mmol/L Normal 20-31 [facility] Comment on above: Performed By: #### C DP, LACTIC, LIP, CP #### [facility] [address], [place] [phone] Flooring Grader: Shaq Mullen MD Creatinine [Mass/Vol] 0.8 mg/dL Normal 0.7-1.2 [facility] Comment on above: Performed By: #### C DP, LACTIC, LIP, CP #### [facility] [address], [place] [phone] Flooring Grader: Shaq Mullen MD GFR/1.73 sq M.predicted among non-blacks MDRD (S/P/Bld) [Vol rate/Area] mL/min/{1.73_m2} Normal >60 [facility] Comment on above: Result Comment: These [...] renal tubular secretion. Performed By: #### C DP, LACTIC, LIP, CP #### [facility] [address] [place] [address] Flooring Grader: Shaq Mullen MD Glucose [Mass/Vol] 165 mg/dL High 70-99 [facility] Comment on above: Performed By: #### C DP, LACTIC, LIP, CP #### [facility] [address], [place] [id number] Flooring Grader: Shaq Mullen MD Potassium [Moles/Vol] 4.2 mmol/L Normal 3.7-5.3 [facility] Comment on above: Performed By: #### C DP, LACTIC, LIP, CP #### [facility] [address], [place] [phone] Flooring Grader: Shaq Mullen MD Protein [Mass/Vol] 7.2 g/dL Normal 6.4-8.3 [facility] Comment on above: Performed By: #### C DP, LACTIC, LIP, CP #### [facility] [address] [place] [address] Flooring Grader: Shaq Mullen MD Sodium [Moles/Vol] 138 mmol/L Normal 135-144 [facility] Comment on above: Performed By: #### C DP, LACTIC, LIP, CP #### [facility] [address] [place] [address] Flooring Grader: Shaq Mullen MD Urea nitrogen [Mass/Vol] 18 mg/dL Normal 8-23 [facility] Comment on above: Performed By: #### C DP, LACTIC, LIP, CP #### [facility] [address] [place] [address] Flooring Grader: Shaq Mullen MD Comprehensive Metabolic Pane [facility] 06-29-2023 Albumin [Mass/Vol] 4.1 g/dL 3.5 - 5.2 g/dL [facility] ALP [Catalytic activity/Vol] 265 U/L High 40 - 129 U/L [facility] ALT [Catalytic activity/Vol] 343 U/L High 5 - 41 U/L [facility] Anion gap [Moles/Vol] 11 mmol/L 9 - 17 mmol/L [facility] AST [Catalytic activity/Vol] 326 U/L High NINF - 40 U/L [facility] Bilirubin [Mass/Vol] 1.7 mg/dL High 0.3 - 1 .2 mg/dL [facility] Calcium [Mass/Vol] 10.0 mg/dL 8.6 - 10. 4 mg/dL [facility] Chloride [Moles/Vol] 101 mmol/L 98 - 10 7 mmol/L [facility] CO2 [Moles/Vol] 26 mmol/L 20 - 31 mmol/L [facility] Creatinine [Mass/Vol] 0.8 mg/dL 0.7 - 1.2 mg/dL [facility] GFR/1.73 sq M.predicted MDRD (S/P/Bld) [Vol rate/Area] - PINF [facility] Comment on above: These results are not [...] that affects renal tubular secretion. Glucose [Mass/Vol] 165 mg/dL High 70 - 99 mg/dL [facility] Potassium [Moles/Vol] 4.2 mmol/L 3.7 - 5.3 mmol/L [facility] Protein [Mass/Vol] 7.2 g/dL 6.4 - 8.3 g/dL [facility] Sodium [Moles/Vol] 138 mmol/L 135 - 144 mmol/L [facility] Urea nitrogen [Mass/Vol] 18 mg/dL 8 - 23 mg/dL [facility] Urea nitrogen/Creatinine [Mass ratio] 23 mg/mg High 9 - 20 [facility] Lactic Acidon 06-29-2023 Lactate [Moles/Vol] 1.5 mmol/L Normal 0.5-2.2 [facility] Comment on above: Performed By: #### C DP, LACTIC, LIP, CP #### [facility] [address] [place] [address] Flooring Grader: Shaq Mullen MD Lactate (BldV) [Moles/Vol] 1.5 mmol/L 0.5 - 2.2 mmol/L [facility] Lipaseon 06-29-2023 Lipase [Catalytic activity/Vol] U/L Critically high 13-60 [facility] Comment on above: Performed By: #### C DP, LACTIC, LIP, CP #### [facility] [address] [place] [address] Flooring Grader: Shaq Mullen MD Lipase [Catalytic activity/Vol] U/L Critically high 13 - 60 U/L [facility] No Panel Informationon 06-29 Interpretation and review of laboratory results Abnormal [facility] Troponinon 06-29-2023 Troponin, High Sens 16 ng/L Normal 0-22 [facility] Comment on above: Result Comment: High Sensitivity Troponin values cannot be compared with other Troponin methodologies. Performed By: #### T NILA #### [facility] [address] [place] [address] Flooring Grader: Shaq Mullen MD Troponin I.cardiac High sensitivity method [Mass/Vol] 16 ng/L 0 - 22 ng/L [facility] Comment on above: High Sensitivity Tro ponin values cannot be compared with other Troponin methodologies. [facility] US GALLBLADDER RUQon 024 US GALLBLADDER RUQ EXAM: US GALLBLADDER RUQ HISTORY: ABD pain with cholelithiasis in CT COMPARISON: CT exam same day TECHNIQUE: Grayscale and color ultrasound FINDINGS: The liver measures 17.8 cm in length. The liver is normal in size, contour and echotexture with no focal mass. The gallbladder is normal in size. The wall is thickened measuring 4 mm. Negative sonographic Bird sign. Layering echogenicity within the gallbladder lumen likely combination of sludge and cholelithiasis. The common bile duct measures 6 mm, normal for age. The pancreas is not visualized due to overlying bowel gas The right kidney measures 10.7 x 6.6 x 6.6 cm per the cortex measures 1.6 cm. Area of peripelvic anechoic echogenicity measuring 3.2 cm, a simple cyst is favored. No free fluid The visualized proximal aorta and IVC are normal IMPRESSION: Moderate cholelithiasis and gallbladder sludge with gallbladder wall thickening suggesting cholecystitis Interpreted by: Shaq Meyer MD Signed by: Shaq Meyer MD 06/29/23 Final result Normal [facility] US Gallbladderon 06-29-2023 Moderate cholelithiasis and gallbladder sludge with gallbladder wall thickening suggesting cholecystitis [facility] RIS CONSOLIDATED EXAM: US GALLBLADDER RUQ HISTORY: ABD pain with cholelithiasis in CT COMPARISON: CT exam same day TECHNIQUE: Grayscale and color ultrasound FINDINGS: The liver measures 17.8 cm in length. The liver is normal in size, contour and echotexture with no focal mass. The gallbladder is normal in size. The wall is thickened measuring 4 mm. Negative sonographic Bird sign. Layering echogenicity within the gallbladder lumen likely combination of sludge and cholelithiasis. The common bile duct measures 6 mm, normal for age. The pancreas is not visualized due to overlying bowel gas The right kidney measures 10.7 x 6.6 x 6.6 cm per the cortex measures 1.6 cm. Area of peripelvic anechoic echogenicity measuring 3.2 cm, a simple cyst is favored. No free fluid The visualized proximal aorta and IVC are normal [facility] RIS CONSOLIDATED Shaq Meyer MD - 06/29/2023 EXAM: US GALLBLADDER RUQ HISTORY: ABD pain with cholelithiasis in CT COMPARISON: CT exam same day TECHNIQUE: Grayscale and color ultrasound FINDINGS: The liver measures 17.8 cm in length. The liver is normal in size, contour and echotexture with no focal mass. The gallbladder is normal in size. The wall is thickened measuring 4 mm. Negative sonographic Bird sign. Layering echogenicity within the gallbladder lumen likely combination of sludge and cholelithiasis. The common bile duct measures 6 mm, normal for age. The pancreas is not visualized due to overlying bowel gas The right kidney measures 10.7 x 6.6 x 6.6 cm per the cortex measures 1.6 cm. Area of peripelvic anechoic echogenicity measuring 3.2 cm, a simple cyst is favored. No free fluid The visualized proximal aorta and IVC are normal IMPRESSION: Moderate cholelithiasis and gallbladder sludge with gallbladder wall thickening suggesting cholecystitis [facility] Radiology Study observation (narrative) [facility] US GallbladderOrdered By: Oscar Meyer on 06-29-[address] [facility] [address] FOOT LEFT WO CONTRASTon 0 02-15-2023 CT FOOT LEFT WO CONTRAST EXAM: CT scan left foot and ankle - 02/15/2023. HISTORY:Left foot pain and pain in the left great toe. Hallux rigidus of the left foot. 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 Preoperative evaluation. COMPARISON: Radiographs left foot obtained at [facility] 12/20/2022. TECHNIQUE: Multiple contiguous axial CT [...] Chuy Max MD 02/15/23 Final result Normal [facility] Comp Metabolic Profon 2022 Albumin [Mass/Vol] 4.0 g/dL Normal 3.5-5.2 [facility] Comment on above: Performed By: #### C P #### [facility] [address] [place] [address] Flooring Grader: Shaq Mullen MD Alkaline Phos 117 U/L Normal 40-[address] [facility] Comment on above: Performed By: #### C P #### [facility] [address] [place] [address] Flooring Grader: Shaq Mullen MD ALT [Catalytic activity/Vol] 25 U/L Normal 5-41 [facility] Comment on above: Performed By: #### C P #### [facility] [address] [place] [address] Flooring Grader: Shaq Mullen MD Anion gap [Moles/Vol] 11 mmol/L Normal 9-17 [facility] Comment on above: Performed By: #### C P #### [facility] [address] [place] [address] Flooring Grader: Shaq Mullen MD AST [Catalytic activity/Vol] 22 U/L Normal <40 [facility] Comment on above: Performed By: #### C P #### [facility] [address] [place] [address] Flooring Grader: Shaq Mullen MD Bilirubin [Mass/Vol] 0.4 mg/dL Normal 0.3-1.2 [facility] Comment on above: Performed By: #### C P #### [facility] [address] [place] [address] Flooring Grader: Shaq Mullen MD BUN/CRE Ratio 19 Normal 9-[address] [facility] Comment on above: Performed By: #### C P #### [facility] [address], [place] [phone] Flooring Grader: Shaq Mullen MD Calcium [Mass/Vol] 9.7 mg/dL Normal 8.6-10.4 [facility] Comment on above: Performed By: #### C P #### [facility] [address], [place] [phone] Flooring Grader: Shaq Mullen MD Chloride [Moles/Vol] 104 mmol/L Normal 98-107 [facility] Comment on above: Performed By: #### C P #### [facility] [address], [place] [phone] Flooring Grader: Shaq Mullen MD CO2 [Moles/Vol] 22 mmol/L Normal 20-31 [facility] Comment on above: Performed By: #### C P #### [facility] [address], [place] [phone] Flooring Grader: Shaq Mullen MD Creatinine [Mass/Vol] 0.95 mg/dL Normal 0.70-1.20 [facility] Comment on above: Performed By: #### C P #### [facility] [address], [place] [phone] Flooring Grader: Shaq Mullen MD GFR/1.73 sq M.predicted among non-blacks MDRD (S/P/Bld) [Vol rate/Area] mL/min/{1.73_m2} Normal >60 [facility] Comment on above: Result Comment: These [...] secretion. Performed By: #### C P #### [facility] [address] [place], [place] [phone] Flooring Grader: Shaq Mullen MD Glucose [Mass/Vol] 137 mg/dL High 70-99 [facility] Comment on above: Performed By: #### C P #### [facility] [address], [place] [phone] Flooring Grader: Shaq Mullen MD Potassium [Moles/Vol] 3.8 mmol/L Normal 3.7-5.3 [facility] Comment on above: Performed By: #### C P #### [facility] [address], [place] [phone] Flooring Grader: Shaq Mullen MD Protein [Mass/Vol] 7.1 g/dL Normal 6.4-8.3 [facility] Comment on above: Performed By: #### C P #### [facility] [address], [place] [phone] Flooring Grader: Shaq Mullen MD Sodium [Moles/Vol] 137 mmol/L Normal 135-144 [facility] Comment on above: Performed By: #### C P #### [facility] [address], [place] [phone] Flooring Grader: Shaq Mullen MD Urea nitrogen [Mass/Vol] 18 mg/dL Normal 8-23 [facility] Comment on above: Performed By: #### C P #### [facility] [address], [place] [phone] Flooring Grader: Shaq Mullen MD Comprehensive Metabolic Pane ko 10-05-2022 Albumin [Mass/Vol] 4 g/dL 3.5 - 5.2 g/dL [facility] ALP [Catalytic activity/Vol] 117 U/L 40 - 129 U/L [facility] ALT [Catalytic activity/Vol] 25 U/L 5 - 41 U/L [facility] Anion gap [Moles/Vol] 11 mmol/L 9 - 17 mmol/L [facility] AST [Catalytic activity/Vol] 22 U/L NINF - 40 U/L [facility] Bilirubin [Mass/Vol] 0.4 mg/dL 0.3 - 1 .2 mg/dL [facility] Calcium [Mass/Vol] 9.7 mg/dL 8.6 - 10. 4 mg/dL [facility] Chloride [Moles/Vol] 104 mmol/L 98 - 10 7 mmol/L [facility] CO2 [Moles/Vol] 22 mmol/L 20 - 31 mmol/L [facility] Creatinine [Mass/Vol] 0.95 mg/dL 0.70 - 1.20 mg/dL [facility] GFR/1.73 sq M.predicted MDRD (S/P/Bld) [Vol rate/Area] - PINF [facility] Comment on above: These results are not [...] 137 mg/dL High 70 - 99 mg/dL [facility] Interpretation and review of laboratory results Abnormal [facility] Potassium [Moles/Vol] 3.8 mmol/L 3.7 - 5.3 mmol/L [facility] Protein [Mass/Vol] 7.1 g/dL 6.4 - 8.3 g/dL [facility] Sodium [Moles/Vol] 137 mmol/L 135 - 144 mmol/L [facility] Urea nitrogen [Mass/Vol] 18 mg/dL 8 - 23 mg/dL [facility] Urea nitrogen/Creatinine (Bld) [Mass ratio] 19 9 - [address] [facility] CT CERVICAL SPINE WO CONTRAS Ton 08-16-2022 [...] Rick Dominguez MD 08/16/22 Final result Normal [facility] 1. No fracture or malalignment. 2. [...] or other acute bony abnormality is seen. [facility] Rick Islas MD - 08/16/2022 EXAMINATION: CT CERVICAL SPINE [...] arthrosis, resulting in mild right foraminal stenosis. [employer] Phone: Radiology Study observation (narrative) [employer] Phone: CT CERVICAL SPINE WO CONTRAS TOrdered By: Rick Dominguez on 08-16-2022 [employer] Phone: CT THORACIC SPINE WO CONTRAS Ton [...] by: Alexi Toussaint MD 08/16/22 Final result [facility] This is a negative CT scan of [...] central canal stenosis throughout the thoracic spine. [facility] Alexi Rowan MD - 08/16/2022 [...] fractures or loss of vertebral body height. [facility] [employer] Work Phone: Radiology Study observation (narrative) [facility] [employer] Work Phone: CT THORACIC SPINE WO CONTRAS TOrdered By: Alexi Toussaint on 08-16-2022 [facility] [employer] Work Phone: CBC with Auto Differentialon 01-25-2022 Absolute Eos # 0.20 [place] [facility] Absolute Lymph # 1.[address] [facility] SEC[facility]RS [facility] Absolute [place] # 0.50 [facility] RS [facility] [employer] Basophils (Bld) [#/Vol] 0.00 10*3/uL [facility] Basophils/100 WBC (Bld) 0 % 0 - 2 % [facility] [employer] Differential Type YES [facility] Eosinophils/100 WBC (Bld) 2 % 0 - 5 % [facility] Hematocrit (Bld) [Volume fraction] 44.6 % 41 - 53 % [facility] Hemoglobin (Bld) [Mass/Vol] 15.0 g/dL 13.5 - 17.5 g/dL [facility] Lymphocytes/100 WBC (Bld) 20 % 13 - 44 % [facility] MCH (RBC) [Entitic mass] 30.2 pg 26 - 34 pg [facility] MCHC (RBC) [Mass/Vol] 33.7 g/dL 31 - 37 g/dL B ON [facility] MCV (RBC) [Entitic vol] 89.6 fL 80 - 100 fL [facility] Monocytes/100 WBC (Bld) 7 % 5 - 9 % [facility] Platelet distribution width (Bld) [Ratio] 13.5 % 12.1 - 15.2 % [facility] Platelets (Bld) [#/Vol] 264 10*3/uL [facility] RBC (Bld) [#/Vol] 4.98 10*6/uL 4.5 - 5.9 m/uL [facility] Segmented neutrophils/100 WBC (Bld) 71 % 39 - 75 % [facility] Segs Absolute 5.60 [facility] WBC (Bld) [#/Vol] 7.9 10*3/uL [facility] Comprehensive Metabolic Pane ko 01-25-2022 Albumin [Mass/Vol] 4.3 g/dL 3.5 - 5.2 g/dL [facility] ALP (Bld) [Catalytic activity/Vol] 124 U/L 40 - 129 U/L [facility] ALT [Catalytic activity/Vol] 24 U/L 5 - 41 U/L [facility] Anion gap [Moles/Vol] 11 mmol/L 9 - 17 mmol/L [facility] AST [Catalytic activity/Vol] 21 U/L NINF - 40 U/L [facility] Bilirubin [Mass/Vol] 0.60 mg/dL 0.3 - 1 .2 mg/dL [facility] Calcium [Mass/Vol] 9.5 mg/dL 8.6 - 10. 4 mg/dL [facility] Chloride [Moles/Vol] 101 mmol/L 98 - 10 7 mmol/L [facility] CO2 [Moles/Vol] 24 mmol/L 20 - 31 mmol/L [facility] Creatinine [Mass/Vol] 0.89 mg/dL 0.7 - 1.2 mg/dL [facility] Free PSA/Total PSA [Mass fraction] 7.3 g/dL 6.4 - 8.3 g/dL [facility] GFR >60 60 - PI NF mL/min [facility] GFR Non- >60 60 - PINF mL/min [facility] GFR/1.73 sq M.predicted MDRD (S/P/Bld) [Vol rate/Area] [facility] Comment on above: Average GFR for 60-6 9 years old: 85 mL/min/1.73sq m Chronic Kidney Disease: <60 mL/min/1.73sq m Kidney failure: <15 mL/min/1.73sq m eGFR calculated using average adult body mass. Additional eGFR calculator available at: http://www.Cinnamon/multiple_crcl_2011.htm Glucose [Mass/Vol] 120 mg/dL High 70 - 99 mg/dL [facility] Interpretation and review of laboratory results Abnormal [facility] Potassium [Moles/Vol] 4.3 mmol/L 3.7 - 5.3 mmol/L [facility] Sodium [Moles/Vol] 136 mmol/L 135 - 144 mmol/L [facility] Urea nitrogen (BldV) [Mass/Vol] 16 mg/dL 8 - 23 mg/dL [facility] Urea nitrogen/Creatinine (Bld) [Mass ratio] 18 9 - 20 [facility] Lipid Panelon 01-25-2022 Cholesterol [Mass/Vol] 95 mg/dL NINF - 200 mg/dL [facility] Comment on above: Cholesterol Guidelines: <200 Desirable 200-240 Borderline >240 Undesirable Cholesterol in HDL [Mass/Vol] 27 mg/dL Low 40 - PINF mg/dL [facility] Comment on above: HDL Guidelines: <40 Undesirable 40-59 Borderline >59 Desirable Cholesterol in LDL [Mass/Vol] 55 mg/dL 0 - 130 mg/dL [facility] Comment on above: LDL Guidelines: <100 Desirable 100-129 Near to/above Desirable 130-159 Borderline >159 Undesirable Direct (measured) LDL and calculated LDL are not interchangeable tests. Cholesterol.total/Cho lesterol in HDL [Mass ratio] 3.5 {ratio} NINF - 5 [facility] Interpretation and review of laboratory results Abnormal [facility] Triglyceride [Mass/Vol] 67 mg/dL NINF - 150 mg/dL [facility] Comment on above: Triglyceride Guidelines: <150 Desirable 150-199 Borderline 200-499 High >499 Very high Based on AHA Guidelines for fasting triglyceride, February 2012. [facility] PSA Screeningon 01-25-2022 [facility] Patient Fasting?on 2 Patient Fasting? YES [facility] COVID-19, Rapidon 07-28-2021 SARS-CoV-2 (COVID-19) RNA JORGITO+probe Ql (Unsp spec) Not detected Not Detected [facility] Comment on above: Rapid NAAT: The [...] management decisions. Fact sheet for Healthcare Providers: https://www.fda.gov/media/480695/download Fact sheet for Patients: https://www.fda.gov/media/617217/download Methodology: Isothermal Nucleic Acid Amplification Specimen Description .NASOPHARYNGEAL SWAB [place] No Panel Informationon 07-28 Direct Exam Negative [facility] Rapid Influenza A/B Antigens on 07-28-2021 Specimen Description .NASOPHARYNGEAL SWAB [place] CBC Auto Differentialon 12-2 Basophils (Bld) [#/Vol] 0.00 10*3/uL [place] Basophils/100 WBC (Bld) 1 % 0 - 2 % [place] Differential Type YES [place] Eosinophils (Bld) [#/Vol] 0.10 10*3/uL [place] Eosinophils/100 WBC (Bld) 1 % 0 - 5 % [place] Erythrocyte distribution width (RBC) [Ratio] 14.2 % 12.1 - 15.2 % [place] Hematocrit (Bld) [Volume fraction] 43.7 % 41 - 53 % [place] Hemoglobin (Bld) [Mass/Vol] 14.9 g/dL 13.5 - 17.5 g/dL [place] Lymphocytes (Bld) [#/Vol] 1.50 10*3/uL [place] Lymphocytes/100 WBC (Bld) 18 % 13 - 44 % [place] MCH (RBC) [Entitic mass] 30.9 pg 26 - 34 pg [place] MCHC (RBC) [Mass/Vol] 34.2 g/dL 31 - 37 g/dL [place] MCV (RBC) [Entitic vol] 90.3 fL 80 - 100 fL [place] Monocytes (Bld) [#/Vol] 0.50 10*3/uL [place] Monocytes/100 WBC (Bld) 6 % 5 - 9 % [place] Platelet mean volume (Bld) [Entitic vol] NOT REPORTED 6 - 12 fL [place] Platelets (Bld) [#/Vol] NOT REPORTED [place] Platelets (Bld) [#/Vol] 289 10*3/uL [place] RBC (Bld) [#/Vol] 4.84 10*6/uL 4.5 - 5.9 m/uL [place] RBC morphology finding Nom (Bld) NOT REPORTED [place] Segmented neutrophils/100 WBC (Bld) 74 % 39 - 75 % [place] Segs Absolute 6.40 [place] WBC (Bld) [#/Vol] 8.5 10*3/uL [place] WBC (Bld) [#/Vol] NOT REPORTED per 100 WBC [place] WBC Morphology NOT REPORTED [place] Comprehensive Metabolic Pane ko 05-20-2020 Albumin [Mass/Vol] 4.4 g/dL 3.5 - 5.2 g/dL [place] Albumin/Globulin [Mass ratio] NOT REPORTED [place] ALP [Catalytic activity/Vol] 135 U/L High 40 - 129 U/L [place] ALT [Catalytic activity/Vol] 36 U/L 5 - 41 U/L [place] Anion gap [Moles/Vol] 10 mmol/L 9 - 17 mmol/L [place] AST [Catalytic activity/Vol] 29 U/L <40 [place] Bilirubin Ql (U) 0.47 mg/dL 0.3 - 1.2 mg/dL [place] Bun/Cre Ratio 15 [place] Calcium [Mass/Vol] 9.1 mg/dL 8.6 - 10. 4 mg/dL [place] Chloride [Moles/Vol] 102 mmol/L 98 - 10 7 mmol/L [place] CO2 [Moles/Vol] 27 mmol/L 20 - 31 mmol/L [place] Creatinine [Mass/Vol] 0.91 mg/dL 0.7 - 1.2 mg/dL [place] GFR >60 >60 mL/min [place] GFR Non- >60 >60 mL/min [place] GFR/1.73 sq M predicted among non-blacks MDRD (S/P/Bld) [Vol rate/Area] [place] Comment on above: Average GFR for 60-6 9 years old: 85 mL/min/1.73sq m Chronic Kidney Disease: <60 mL/min/1.73sq m Kidney failure: <15 mL/min/1.73sq m eGFR calculated using average adult body mass. Additional eGFR calculator available at: http://www.SpineFrontier.Encover/multiple_crcl_2012.htm GFR/1.73 sq M predicted among non-blacks MDRD (S/P/Bld) [Vol rate/Area] NOT REPORTED [place] Glucose [Mass/Vol] 121 mg/dL High 70 - 99 mg/dL [place] Interpretation and review of laboratory results Abnormal [place] Potassium [Moles/Vol] 4.2 mmol/L 3.7 - 5.3 mmol/L [place] Protein [Mass/Vol] 7.3 g/dL 6.4 - 8.3 g/dL [place] Sodium [Moles/Vol] 139 mmol/L 135 - 144 mmol/L [place] Urea nitrogen [Mass/Vol] 14 mg/dL 8 - 23 mg/dL [place] Hemoglobin A1Con 05-20-2020 Glucose [Mass/Vol] 134 mg/dL [place] Comment on above: The ADA and AACC rec ommend providing the estimated average glucose result to permit better patient understanding of their HBA1c result. HbA1c (Bld) [Mass fraction] 6.3 % High 4 - 6 % [place] Interpretation and review of laboratory results Abnormal [place] Hepatitis C Antibodyon 05-20 Hepatitis C Ab NONREACTIVE NONREACTIVE [place]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 [facility] 04-22-2022 Influenza, FLUZONE ( age 65 y+), High Dose, 0.7mL Rodri Parish MD Work Phone: [facility] 05-19-2021 influenza, injectabl e, quadrivalent, preservative free Rodri Parish MD Work Phone: [facility] 07-30-2020 COVID-19, Pfizer, PF , 30mcg/0.3mL Janelle Shade PT Work Phone: [facility] Work Phone: 07-09-2020 COVID-19, PFIZER PUR PLE top, DILUTE for use, (age 12 y+), 30mcg/0.3mL Rodri Parish MD Work Phone: [facility] 06-29-2020 COVID-19, Pfizer, PF , 30mcg/0.3mL Janelle Shade PT Work Phone: [facility] 03-29-2020 influenza, high dose seasonal, preservative-free [facility] 04-21-2019 influenza, high dose seasonal, preservative-free [facility], [place] 04-14-2019 pneumococcal conjuga te vaccine, 13 valent [facility], [place] 12-20-2018 tetanus toxoid, redu amy diphtheria toxoid, and acellular pertussis vaccine, adsorbed [facility], [place] 03-27-2018 Influenza Vaccine, unspecified formulation [facility] , [place] 03-27-2018 influenza, injectabl e, quadrivalent, preservative free [facility] 03-27-2018 pneumococcal conjuga te vaccine, 13 valent [facility], [place] 04-27-2017 Influenza Vaccine, unspecified formulation [facility] , [place] 02-26-2017 influenza virus vaccine, whole virus [facility], [place] 07-02-2015 influenza virus vaccine, whole virus [facility] 07-02-2015 zoster vaccine, live [facility], [place] 03-27-2013 influenza virus vaccine, unspecified formulation [facility] 03-27-2013 influenza virus vaccine, whole virus [facility], [place] 04-18-2011 hepatitis A and hepatitis B vaccine [facility], [place] 10-28-2010 hepatitis A and hepatitis B vaccine [place], [place] 09-22-2010 tetanus toxoid, redu amy diphtheria toxoid, and acellular pertussis vaccine, adsorbed [facility], [place] 09-20-2010 hepatitis A and hepatitis B vaccine [place], [place] 03-21-2007 influenza virus vaccine, whole virus [place], [place] Payers Date Payer Category Payer Unknown [id number] 2018 Unknown [id number] 2018 Medicare [id number] 2014 Unknown [id number] 1.2.8 [id number] 1953 Unknown [id number] 2.16.8 [id number] 1953 Unknown [id number] 2.16.8 [id number] 1953 Unknown [id number] 2.16.8 [id number] 1953 Unknown [id number] 2.16.8 [id number] 1953 Unknown [id number] 2.16.8 [id number] 1955 Unknown [id number] 2.16.8 [id number] 1953 Unknown [id number] 2.16.8 [id number] 1955 Unknown [id number] 2.16.8 [id number] 1955 Unknown [id number] 2.16.8 [id number] Social History Date Type Detail Facility Start: 04-30-2020 End: 06-12-2023 Tobacco smoking status NHIS Former smoker [facility] [employer] Start: 05-28-1974 End: 05-28-1979 History of tobacco use Current smoker [place], [place] Start: 05-28-1974 End: 05-28-1979 History of tobacco use Cigarette Smoker [place] Start: 04-30-2020 End: 06-29-2023 Cigarettes smoked current (pack per day) - Reported [employer] Start: 04-30-2020 End: 06-12-2023 Tobacco use and exposure Never used [facility] [place] Start: 04-30-2020 End: 07-03-2023 Alcohol intake Current drinker of alcohol (finding) [place], [place] Start: 03-18-2012 Alcohol Comment rarely [place], [place] Start: 1955 Sex Assigned At Not on file [place] Start: 11-26-2020 End: 08-23-2022 History SDOH Financial 5 [employer] Phone: Start: 11-26-2020 End: 08-23-2022 History SDOH Food Worry 1 [employer] Phone: Start: 01-24-2022 History SDOH Alcohol Frequency 3 [employer] Phone: Start: 01-24-2022 End: 08-23-2022 History SDOH Physical Activity MPS 2 [employer] Phone: Start: 08-06-2022 End: 08-16-2022 Exposure to SARS-CoV-2 (event) Not sure [employer] Work Phone: History of tobacco use Passive smoker [facility] [employer] Work Phone: Start: 01-24-2022 End: 06-29-2023 [facility] Utilities [facility] [employer] [facility] Has the [employer], or water [employer] threatened to shut off services in your home in past 12Mo No [employer] How often to you hav e a drink containing alcohol? [facility] How many standard dr inks containing alcohol do you have on a typical day? Patient does not drink [employer] (I/We) worried wheth er (my/our) food would run out before (I/we) got money to buy more. Never true [employer] Clinical Notes 12-06-2020 to 07-03-2023 Patricia Thurman RN - 07/03/2023 6:16 PM ESTSPatricia rocha RN - 07/03/2023 5:30 PM ESTSPatricia rocha RN - 07/03/2023 4:52 PM Patricia Stevenson RN - 07/03/2023 3:06 PM ESTDischarge Instructions Note Date & Type Note Facility 07-03-2023 History of Presen t illness Narrative Discharge Criteria Outpatients must meet criteria 1 through 7. Up to restroom, void sufficient amount. Yes. Gait steady when up. 1. Minimum 30 minutes after last dose of sedative medication, minimum 120 minutes after last dose of reversal agent. Yes 2. Systolic BP stable within 20 mmHg for 30 minutes & systolic BP between 90 & 180 or within 10 mmHg of baseline. Yes 3. Pulse between 60 and 100 or within 10 bpm of baseline. Yes 4. Spontaneous respiratory rate >/= 10 per minute. Yes 5. SaO2 >/= 95 or >/= baseline. Yes 6. Able to cough and swallow or return to baseline function. Yes 7. Alert and oriented or return to baseline mental status. Yes 8. Demonstrates controlled, coordinated movements, ambulates with steady gait, or return to baseline activity function. Yes 9. Minimal or no pain or nausea, or at a level tolerable and acceptable to patient. Yes 10. Takes and retains oral fluids as allowed. Yes 11. Procedural / perioperative site stable. Minimal or no bleeding. Yes 12. If GI endoscopy procedure, minimal or no abdominal distention or passing flatus. Yes 13. Written discharge instructions and emergency telephone number provided. Yes 14. Accompanied by a responsible adult. Yes Adult patient discharged from facility without responsible person meets above criteria plus the following: a) remains awake without stimulus for 30 minutes b) oriented appropriate for age c) all vital signs stable d) no significant risk of losing protective reflexes e) able to maintain pre-procedure mobility without assistance f) no nausea or dizziness g) transportation arrangements that do not require patient to operate motor Vehicle. Yes States nausea better after Reglan. Rates pain 6/10 in mid abdomen. Given a couple crackers with pain med. Lab here for draw Blocks complete. To OR for procedure. Patient was hospitalized this last weekend with biliary pancreatitis. He now comes in for cholecystectomy. Ty Rodriguez has symptomatic cholelithiasis. Alternative treatments of senior care low fat diet and oral dissolution therapy were discussed. Risks of the operation were discussed with him in detail. These risks include: conversion to the open operation (done for safety when necessary), bleeding, infection, injury to other intra-abdominal organs like the small intestine, and failure for symptoms to resolve (post-cholecystectomy syndrome). I also discussed the possibility of developing diarrhea due to gall bladder removal. Common bile duct injury and its consequences, along with bile leak and retained common bile duct stone were also reviewed. Additionally, Ty Rodriguez was given the opportunity to ask questions and clarifications. he does want to proceed at this time. Last lovenox was Sunday evening, a little less than 48 hours ago, and the dose is a prophylactic dose (40mg daily) bleeding risk should be minimal. [facility] Preadmission Testing Name: Ty Rodriguez : 1955 Patient (home) [phone] (work) Procedure:Laparoscopic Cholecystectomy Date of Procedure: 07/03/2023 Surgeon: Nghia Novak MD Ht: 182.9 cm (6') Wt: 88.5 kg (195 lb) Wt method: Stated Allergies: Allergies Allergen Reactions Keflex [Cephalexin] Nausea And Vomiting There were no vitals filed for this visit. No LMP for male patient. Do you take blood thinners? [x] Yes [] No Currently on Lovenox will hold dose on SundayJul 02 Instructed to stop blood thinners prior to procedure? [x] Yes [] No [] N/A Do you have sleep apnea? [] Yes [x] No Do you have acid reflux ? [x] Yes [] No Do you have hiatal hernia? [] Yes [x] No Do you ever experience motion sickness? [] Yes [x] No Have you had a respiratory infection or sore throat in last 4 weeks before surgery? [] Yes [x] No Do you have poorly controlled asthma or COPD? Difficulty with intubation in past? [] Yes [x] No [] Yes [x] No Do you have a history of angina in the last month or symptomatic arrhythmia? [] Yes [x] No Do you have significant central nervous system disease? [] Yes [x] No Have you had an EKG, labs, or chest xray in last 12 months? If yes provide copies to anesthesia [x] Yes [] No [x] Lab [x] EKG [] CXR Have you had a stress test? [] Yes [x] No When/where: Was it normal? [] Yes [] No Do you or your family have a history of Malignant Hyperthermia? [] Yes [x] No Do you smoke? [] Yes [x] No Please refrain from smoking on the day of surgery. Patient instructed on: [x] NPO Status [x] Meds to Take [] Hold GLP-1 Receptor Agonist [x] Ride Home [x] No Jewelry/Contact Lenses/Nail Arabic [] Prep/Lax/Clear Liquids [] Chlorhexidene DOS Patient Needs [] HCG [] Blood Sugar [] PT/INR [] T&S Do you have any metal allergies? [] Yes [x] No If yes, to what metals: Patient instructed on the pre-operative, intra-operative, and post-operative process? Yes Medication instructions reviewed with patient? Yes documented in this encounter [facility] 07-03-2023 Hospital Discharg e Nghia Nunez MD - 07/03/2023 4:40 PM EST 1) Follow up with me in 1 - 2 weeks 2) I have prescribed you medications - I did not prescribe you an NSAID as you are already on one, Celebrex (celecoxib). You may uses this twice a day regularly for the next 5 days, and then resume your usual pattern of use. - I have also prescribed a narcotic pain medication, hydrocodone/acetaminophen, which you may use additionally as needed for pain. As you pain improves you may substitute plain acetaminophen (Tylenol) if you would like. Because narcotic medication can be abused, do not share the medication with others. If you have left over medication do not save it. Either flush it or return it to the pharmacy for disposal. - You will also find an ice pack helpful. 3) Call if you have any questions or concerns. Discharge Instructions for Cholecystectomy Steps to Take Home Care Keep the incision area clean and dry. Wash your hands before changing the dressing. You may shower tomorrow, but avoid soaking in tub for 72 hours Be sure to get plenty of rest and sleep to help your body heal faster. Diet You will be started on a clear-liquid diet after surgery and advanced to a regular diet, depending on your progress and tolerance. Clear liquids are easy to identify: they are transparent if you hold them up to a light. Your liver will take over the functions of the gallbladder, although some people notice that they have a little more trouble digesting fatty foods, particularly for the first month after surgery. You may notice increased gas or changes in your bowel habits during the first month after surgery. If these persist, inform your healthcare provider. Follow your healthcare team's recommendations about a healthy diet when you leave the hospital. Remember a lot of the foods that give people problems with gall stones can also cause problems with GERD (reflux). Physical Activity Generally you should be able to return to full activity and return to work within 1 - [address] you are no longer taking pain medication. You may gradually increase you activity as tolerated. If you had to stop taking medicines before the procedure, ask your doctor when you can resume taking them. Medicines that are commonly stopped include: Anti-inflammatory drugs (eg, aspirin ) Blood thinners, such as clopidogrel (Plavix) or warfarin (Coumadin) You may be taking pain killers. It is important to take them exactly as your doctor told you. You should not take them with alcohol. You should not drive or operate machines while taking them. When taking medicines, it's important to: Take your medicine as directednot more, not less, not at a different time. Do not stop taking them without consulting your healthcare provider. Don't share them with anyone else. Know what effects and side effects to expect, and report them to your healthcare provider. If you are taking more than one drug, even if it is an iggh-bfq-xcuhzhr medicine, herb, or dietary supplement, be sure to check with a physician or pharmacist about drug interactions. Plan ahead for refills so you do not run out. Lifestyle Changes You and your doctor will plan lifestyle changes that will aid in your recovery. Although you will have incisional pain after your surgery, you should no longer be experiencing pain from your gallstones or gallbladder disease Follow-up Schedule a follow-up appointment as directed by your doctor. Call Your Doctor If Any of the Following Occurs Monitor your recovery once you leave the hospital. As soon as you have a problem, alert your doctor. If any of the following occur, call your doctor: Signs of infection, including fever and chills Redness, swelling, increasing pain, excessive bleeding, or discharge at the incision site Cough, shortness of breath, chest pain Increased abdominal pain Pain that you cannot control with the medicines you have been given Blood in the stool Nausea and/or vomiting that you cannot control with the medicines you were given after surgery, or which persist for more than two days after discharge from the hospital Bloating and gas that persist for more than a month Pain, burning, urgency or frequency of urination, or blood in the urine Pain and/or swelling in your feet, calves, or legs Dark urine, light stools, or evidence of jaundice (yellowing of the skin or eyes). In case of an emergency, CALL 911 immediately. documented in this encounter [facility] 07-01-2023 History of Presen t illness Narrative Discharge instructions reviewed with and provided to patient and at chairside. Verbalized understanding of follow up appointment, surgery schedule, diet, activity, medications and reasons to return to ED/call physician. Advised to call back directly if there are further questions, or if these symptoms fail to improve as anticipated or worsen. All questions answered. IV and gambling monitor removed without incident. Hospitalist Progress Note 07/01/2023 6:34 AM Subjective: Admit Date: 06/29/2023 PCP: Nathalia Carbone DNP Interval History: Ty continues to be pain free. He tolerated a clear liquid diet with no pain or nausea yesterday. No chest pain or SOB. Bowels moving and he denies any trouble urinating. Strength is normal. Labs reviewed with Ty. Lipase has normalized and LFT's are trending down. Diet: ADULT DIET; Clear Liquid Medications: Scheduled Meds: metoprolol succinate 50 mg Oral Daily Vitamin D 5,000 Units Oral Daily sodium chloride flush 5-40 mL IntraVENous 2 times per day piperacillin-tazobactam 3,375 mg IntraVENous Q8H lactobacillus 1 capsule Oral BID WC pantoprazole 40 mg Oral QAM AC lisinopril 20 mg Oral Daily enoxaparin 40 mg SubCUTAneous Daily Continuous Infusions: sodium chloride sodium chloride 50 mL/hr at 06/30/23 1102 Patient's current medications documented, reviewed, and updated. CBC: Recent Labs 06/29/23 0706 06/30/23 0507 WBC 11.5* 8.5 HGB 14.5 13.5 PLT 308 289 BMP: Recent Labs 06/29/23 0706 06/30/23 0507 07/01/23 0523 NA 138 140 142 K 4.2 3.6* 3.8 CL 101 104 107 CO2 26 20 23 BUN 18 17 13 CREATININE 0.8 0.9 0.8 GLUCOSE 165* 97 107* Hepatic: Recent Labs 06/29/23 0706 06/30/23 0507 07/01/23 0523 AST 326* 151* 70* ALT 343* 286* 205* BILITOT 1.7* 0.6 0.5 ALKPHOS 265* 249* 200* Troponin: No results for input(s): TROPONINI in the last 72 hours. BNP: No results for input(s): BNP in the last 72 hours. Lipids: Recent Labs 06/30/23 0507 CHOL 100 HDL 26* INR: No results for input(s): INR in the last 72 hours. Objective: Vitals: BP (!) 146/70 Pulse 68 Temp 97.7 F (36.5 C) (Temporal) Resp 16 Ht 1.829 m (6') Wt 89.2 kg (196 lb 9.6 oz) SpO2 95% BMI 26.66 kg/m General appearance: alert and cooperative with exam HEENT: Head: Normocephalic, no lesions, without obvious abnormality. Eye: Normal external eye, conjunctiva, lids cornea, ZACK. Nose: Normal external nose, mucus membranes and septum. Neck: no adenopathy, no carotid bruit, and supple, symmetrical, trachea midline Lungs: clear to auscultation bilaterally Heart: regular rate and rhythm, S1, S2 normal, no murmur, click, rub or gallop Abdomen: soft, non-tender; bowel sounds normal; no masses, no organomegaly Extremities: extremities normal, atraumatic, no cyanosis or edema Neurologic: Mental status: Alert, oriented, thought content appropriate Medical Decision Making (MDM) Data: External documents reviewed: - My CXR interpretation: - My EKG interpretation: - Discussed with: - Tests considered but not ordered: - Heart score: - Social Determinants of Health that impact treatment or disposition: - Assessment and Plan: Acute gallstone pancreatitis - Admitted on bowel rest, IV fluids, and IV Morphine. Pain has resolved and lipase has normalized. Tolerating clear liquid diet. Acute cholecystitis with cholelithiasis - placed on IV Zosyn. WBC has normalized. Dr. Novak consulted to evaluate for Cholecystectomy. Acute hepatitis - secondary to Cholecystitis / recent gallstone in the common bile duct. LFT's trending down. HTN - controlled on Lisinopril and Toprol XL. GERD - controlled on Protonix. Recent left foot surgery - on Lovenox for DVT prophylaxis. Vitamin D deficiency - on replacement. Plan: Saline lock IV. Nursing to talk with Dr. Novak, today, to verify if he is performing surgery tomorrow. If not, possible DC to have out patient surgery. Differential Diagnosis: - Condition is improving / unchanged / worsening: Improving. Condition is at treatment goal: Close Chronic condition is / is not having mild / moderate, severe exacerbation, progression or side effects of treatment: - Shared decision making: - Code status and discussions: Full Medical Necessity: In patient is appropriate for this patient secondary to the need for IV antibiotics in anticipation for surgery tomorrow. DVT prophylaxis: [] Lovenox [] SCDs [] SQ Heparin [] Encourage ambulation, low risk for DVT, no chemical or mechanical prophylaxis necessary [x] Already on Anticoagulation Patient Active Problem List: HTN (hypertension) Osteoarthritis of both feet Generalized OA Gastroesophageal reflux disease Mixed hyperlipidemia Acute gallstone pancreatitis Mychal Fontana MD, [facility] Hospitalist Patient and spouse ambulate around 2E unit x1 without difficulty. Denies any pain at this time. Met with Patient this p.m. to discuss discharge planning. Patient is a 68 year old , white male, admitted with a diagnosis of acute Gallstones and Pancreatitis. Patient is alert and oriented, very pleasant and cooperative with this assessment. States that his plan is to return home with his when deemed medically stable for discharge. Patient lives in [facility] with his . 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 Patient ordinarily is independent with all ADL's. He had a recent foot surgery and uses a knee scooter, walker and a shower chair at home for assistance. Patient currently utilizes no outside resources or services. His is his emergency vehicle driver at present but typically he drives himself and provides for his own transportation needs. PCP is Tony Carbone CNP. Patient has medical insurance and reports no difficulty with regards to affording his prescription medications. Discharge plan is home when stable. Patient is a 'Full Code' status and he reports that he does have a Living Will and DPOAHC in place. His is his decision maker if/as needed. No discharge planning needs or concerns identified at this time. GAS STATION ATTENDANT to monitor and assist with discharge planning as appropriate. RENEE García 06/29/2023 Images from the original note were not included. Dressing change complete as ordered. Full sensation, with moderate pedal pulse, <3 sec cap refill, warm to touch and large incision reddened. Denies any pain. See attached picture. Patient arrives to room 256 via cart, able to ambulate into bed independently. A&O x4 and able to answer all admission and assessment questions. VS currently stable and denies any pain. Left foot in brace boot due to recent surgery by Dr. Barton in [place]. Pt states took home all medications from ED. Plan of care shared with patient as well orientation to room, call light, whiteboard and staff. All questions and concerns answered at this time. documented in this encounter [facility] 07-01-2023 Hospital Discharg e instructions Mcyhal Fontana MD - 07/01/2023 10:57 AM EST Discharge Instructions Admission Date: 06/29/2023 Discharge Date: 07/01/2023 Disposition: Home Discharge Instructions: Resume previous home medication but hold Celebrex as this can increase risk for bleeding at surgery. Continue on Lovenox but hold on the day of surgery. Take Augmentin 875 mg two times a day x 5 days. Surgery to schedule surgery for this week with coordinating with Dr. Novak. Activity: As tolerated. Diet: Low fat diet. Follow up with Nathalia Carbone DNP in 1 week. The following attachments cannot be sent through Care Everywhere.Gallbladder Disease: Low-Fat Diet (Cymraes)documented in this encounter [facility] 01-06-2021 History of Presen t illness Narrative [facility] Date: 01/06/2021 Patient Name: Ty Rodriguez : 1955 Pt Cancelled Appt due to sick Kathy Daniels Date: 01/06/2021 documented in this encounter [facility] Work Phone: 12-30-2020 History of Presen t illness Narrative Images from the original note were not included. [facility] Outpatient Physical Therapy Daily Note Date: 12/30/2020 Patient Name: Ty Rodriguez : 1955 (65 y.o.) Referring Practitioner: Dr. [...] ex to improve flexiblity and promote stability-met Tugboat Captain Goals - Time Frame for care home goals : 10 visits care home goal 1: Decrease subjective right LE radicular pain by > 75% care home goal 2: Good tolerance to complete functional daily walking without pain exceeding 3/10 of lumbar or right LE Post Treatment Pain: 06/06 Time In: 0900 Time Out : 09 Timed Code Treatment Minutes: 15 Minutes Total Treatment Time: 30 Minutes Kathy Bear LOGISTICS ADMINISTRATOR Date: 12/30/2020 [facility] 12-27-2020 History of Presen t illness Narrative Images from the original note were not included. [facility] Outpatient Physical Therapy Daily Note Date: 12/27/2020 Patient Name: Ty Rodriguez : 1955 (65 y.o.) Referring Practitioner: Dr. Macias Referral Date : 12/01/20 Diagnosis: Sciatica Treatment Diagnosis: Sciatica Onset Date: 12/01/20 PT Insurance Information: MCR Per Physician Order Total # of Visits to Date: 7 No Show: 0 Canceled Appointment: 0 Plan of Care/Certification Expiration Date: 01/31/21 Pre-Treatment Pain: 1/10 Assessment Assessment: Patient states overall improvement with 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 - Time Frame for care home goals : 10 visits care home goal 1: Decrease subjective right LE radicular pain by > 75% terminal operations supervisor goal 2: Good tolerance to complete functional daily walking without pain exceeding 3/10 of lumbar or right LE Post Treatment Pain: 06/06 Time In: 0850 Time Out : 0930 Timed Code Treatment Minutes: 25 Minutes Total Treatment Time: 40 Minutes JANELLE CHRISTENSEN PT Date: 12/27/2020 documented in this encounter [employer] Phone: 12-23-2020 History of Presen t illness Narrative Images from the original note were not included. [facility] Outpatient Physical Therapy Daily Note Date: 12/23/2020 Patient Name: Ty Rodriguez : 1955 (65 y.o.) Referring Practitioner: Dr. 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 - Time Frame for care home goals : 10 visits care home goal 1: Decrease subjective right LE radicular pain by > 75% care home goal 2: Good tolerance to complete functional daily walking without pain exceeding 3/10 of lumbar or right LE Post Treatment Pain: 1-2/10 Time In: 0910 Time Out : 0955 Timed Code Treatment Minutes: 25 Minutes Total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
== END 2023-07-11 11:31 | disposition home or self-care (01) ==
LOC: RAD 11:30
PROVIDERS: Visit Provider Podiatrist Foot & Ankle Surgery
DX: M20.42 Other hammer toe(s) (acquired), left foot (principal); M20.22 Hallux rigidus, left foot; Z98.890 Other specified postprocedural states
CPT/HCPCS: 73630

== ENCOUNTER 2023-08-01 11:45 | Outpatient (OUT) | payer MEDICARE, OTHER, SELFPAY ==
--- NOTE | 2023-08-01 | XR_ITS ---
The [address] [address] Patient Name: TY RANGEL MRN: [id number] date: 1955 Sex: M Assigned Patient Location: Current Patient Location: Accession/Order Number: [id number] Exam Date: 08/01/2023 11:48 Report Date: 08/01/2023 13:54 At the request of: BOBO BARTON Procedure: XR foot LT min 3V PROCEDURE: XR foot LT min 3V COMPARISON: 07/11/2023 HISTORY: LEFT FOOT PAIN FINDINGS: BONES:Fusion of the first metatarsal-phalangeal joint with spacer placement, stable. Remote resection head of the second and third proximal phalanges. Moderate degenerative changes with joint space narrowing marginal osteophyte formation throughout the midfoot and metatarsophalangeal joints. Interval removal of the K wires across the second and third toe SOFT TISSUES:Negative. No visible soft tissue swelling. EFFUSION:None visible. OTHER: Negative. XR/XR foot LT min 3V IMPRESSION: Interval removal of external fixation wires Stable degenerative and postsurgical changes Electronically authenticated by: SOTERO MONTERROSO Date: 08/01/2023 13:54
--- OUTSIDE RECORDS SUMMARY | 2023-08-01 11:52 | XMS_ITS | CCD ---
Author Name Unknown Address [id number] [place] [address] Organization [facility] Care Team Providers Care Statement Processor Name Role Phone NO, PHYSICIAN Unavailable Unavailable SECORNAYE Unavailable Unavailable SELF, SELF Unavailable Unavailable Clingman, Nathalia A Primary Care Provider Clingman [employer] ADMINISTRATOR - FISH AGENT, Nathalia A Primary Care Prov ider Clingman REAL ESTATE SERVICES ADMINISTRATOR - FISH AGENT, Nathalia A Primary Care Prov ider Clingman REAL [employer]STATE SERVICES ADMINISTRATOR - FISH AGENT, Nathalia A Primary Care Prov ider Clingman DNP, Nathalia A Primary Care Provider CLINGMAN, NATHALIA A Primary Care Unavailable BOBO BARTON Referring Unavailable CLINGMAN, NATHALIA A Referring Unavailable CLINGMAN, NATHALIA A Primary Care Unavailable CLINGMAN, NATHALIA A Primary Care Unavailable DIAB Meche MEJIA~[id number] BRITTANEY Attendi ng Unavailable NOVAKNGHIA Attending Unavailable [...] Cephalexin Drug Allergy 06-29-2023 Nausea And Vomiting [facility] Medications Current Medications Medication Drug Class(es) [...] Start: 04-05-2022 take 1 capsule by mo [facility] twice daily celecoxib (CELEBREX) 100 MG capsule Take 1 capsule by mouth 2 times daily 180 capsule 1 04/05/2022 Active dextromethorphan hydrobromide 15 mg / guaiFENesin 400 mg / pseudoephedrine hydrochloride 60 mg oral tablet (1 source) alpha-Adrenergic Agonist, Uncompetitive K-cnnayx-T-aspartate Receptor Antagonist, Sigma-1 Agonist Start: 07-28-2021 take 1 capsule by mouth every six hours as needed for cough and congestion, then take 4 capsules by mouth once daily as needed for cough and congestion Dhqpsmqglsznmeq-TV-NL (CAPMIST DM) 60-15-400 MG TABS Indications: Head [...] (TORADOL) injection 30 mg lactobacillus rhamnosus gg [id number] unt oral capsule (1 source) Start: 06-29-2023 [...] % 10 mL injection polyethylene glycol 3350 17405 mg powder for oral solution (1 source) [...] Interpretation Reference Range Facility EKG Rhythm Stripon [facility] Hepatic Function Panelon Albumin [Mass/Vol] 3.8 g/dL 3.5 - 5.2 g/dL [facility] ALP [Catalytic activity/Vol] 188 U/L High 40 - 129 U/L [facility] ALT [Catalytic activity/Vol] 129 U/L High 5 - 41 U/L [facility] AST [Catalytic activity/Vol] 48 U/L High NINF - 40 U/L [facility] Bilirubin [Mass/Vol] 0.4 mg/dL 0.3 - 1 .2 mg/dL [facility] Bilirubin.direct [Mass/Vol] mg/dL NINF - 0.3 mg/dL [facility] Bilirubin.indirect [Mass/Vol] Can not be calculated 0.0 - 1.0 mg/dL [facility] Interpretation and review of laboratory results Abnormal [facility] Protein [Mass/Vol] 7.0 g/dL 6.4 - 8.3 g/dL [facility] Liver Profileon 07-03-2023 Albumin [Mass/Vol] 3.8 g/dL Normal 3.5-5.2 [facility] Comment on above: Performed By: #### L IPR #### [facility] [place] [address] Wash Test Checker: He Driscoll MD Alkaline Phos 188 U/L High 40-129 [facility] Comment on above: Performed By: #### L IPR #### [facility] [address] [place] [address] Wash Test Checker: He Driscoll MD ALT [Catalytic activity/Vol] 129 U/L High 5-41 [facility] Comment on above: Performed By: #### L IPR #### [facility] [address] [place] [address] Wash Test Checker: He Driscoll MD AST [Catalytic activity/Vol] 48 U/L High <40 [facility] Comment on above: Performed By: #### L IPR #### [address] [address] Wash Test Checker: He Driscoll MD Bilirubin [Mass/Vol] 0.4 mg/dL Normal 0.3-1.2 [facility] Comment on above: Performed By: #### L IPR #### [facility] [address] [place] [address] Wash Test Checker: He Driscoll MD Bilirubin, Indirect Can not be calculated Normal 0.0-1.0 [facility] Comment on above: Performed By: #### L IPR #### [facility] [address] [place] [address] Wash Test Checker: He Driscoll MD Bilirubin.indirect [Mass/Vol] mg/dL Normal <0.3 [facility] Comment on above: Performed By: #### L IPR #### [facility] [address] [place] [address] Wash Test Checker: He Driscoll MD Protein [Mass/Vol] 7.0 g/dL Normal 6.4-8.3 [facility] Comment on above: Performed By: #### L IPR #### [facility] [address] [place] [address] [phone] Wash Test Checker: He Driscoll MD Surgical Pathology Reporton 07-03-2023 Surgical Pathology Report (NOTE) Path Number: [id number] -- Diagnosis -- GALLBLADDER, CHOLECYSTECTOMY: -CHRONIC CHOLECYSTITIS [...] lesions or periductal lymph nodes are identified. Manager Of Customer Billing sections 1c. tm Lala Betty/linda2:07/04/2023 Microscopic Description Microscopic examination performed. Processing Lab: [address] [address] Interpretation Performed at [address] [address] SURGICAL PATHOLOGY CONSULTATION Patient Name: TY RODRIGUEZ Med Rec: [id number] [facility] [employer] [facility] ANATOMIC PATHOLOGY [address] [place] [id number] Normal [facility] Comp Metabolic Pr/rfx MGon 0 - Albumin [Mass/Vol] 3.4 g/dL Low 3.5-5.2 [facility] Comment on above: Performed By: #### C MPX, LIP #### [facility] [address] [place] [address] Wash Test Checker: Shaq Mullen MD Alkaline Phos 200 U/L High 40-129 [facility] Comment on above: Performed By: #### C MPX, LIP #### [facility] [address] [place], [place] [phone] Wash Test Checker: Shaq Mullen MD ALT [Catalytic activity/Vol] 205 U/L High 5-41 [facility] Comment on above: Performed By: #### C MPX, LIP #### [facility] [address] [place], [place] [phone] Wash Test Checker: Shaq Mullen MD Anion gap [Moles/Vol] 12 mmol/L Normal 9-17 [facility] Comment on above: Performed By: #### C MPX, LIP #### [facility] [address] [place], [place] [phone] Wash Test Checker: Shaq Mullen MD AST [Catalytic activity/Vol] 70 U/L High <40 [facility] Comment on above: Performed By: #### C MPX, LIP #### [facility] [address] [place], [place] [phone] Wash Test Checker: Shaq Mullen MD Bilirubin [Mass/Vol] 0.5 mg/dL Normal 0.3-1.2 [facility] Comment on above: Performed By: #### C MPX, LIP #### [facility] [address] [place], [place] [phone] Wash Test Checker: Shqa Mullen MD BUN/CRE Ratio 16 Normal 9-20 [facility] Comment on above: Performed By: #### C MPX, LIP #### [facility] [address] [place], [place] [phone] Wash Test Checker: Shaq Mullen MD Calcium [Mass/Vol] 8.9 mg/dL Normal 8.6-10.4 [facility] Comment on above: Performed By: #### C MPX, LIP #### [facility] [address] [place], [place] [phone] Wash Test Checker: Shaq Mullen MD Chloride [Moles/Vol] 107 mmol/L Normal 98-107 [facility] Comment on above: Performed By: #### C MPX, LIP #### [facility] [address] [place], [place] [phone] Wash Test Checker: Shaq Mullen MD CO2 [Moles/Vol] 23 mmol/L Normal 20-31 [facility] Comment on above: Performed By: #### C MPX, LIP #### [facility] [address] [place], [place] [phone] Wash Test Checker: Shaq Mullen MD Creatinine [Mass/Vol] 0.8 mg/dL Normal 0.7-1.2 [facility] Comment on above: Performed By: #### C MPX, LIP #### [facility] [address] [place] [address] Wash Test Checker: Shaq Mullen MD GFR/1.73 sq M.predicted among non-blacks MDRD (S/P/Bld) [Vol rate/Area] mL/min/{1.73_m2} Normal >60 [facility] Comment on above: Result Comment: These results [...] Performed By: #### C MPX, LIP #### [facility] [address] [place] [address] Wash Test Checker: Shaq Mullen MD Glucose [Mass/Vol] 107 mg/dL High 70-99 [facility] Comment on above: Performed By: #### C MPX, LIP #### [facility] [address] [place] [address] Wash Test Checker: Shaq Mullen MD Potassium [Moles/Vol] 3.8 mmol/L Normal 3.7-5.3 [facility] Comment on above: Performed By: #### C MPX, LIP #### [facility] [address] [place], [place] [phone] Wash Test Checker: Shaq Mullen MD Protein [Mass/Vol] 6.5 g/dL Normal 6.4-8.3 [facility] Comment on above: Performed By: #### C MPX, LIP #### [facility] [address] [place] [address] Wash Test Checker: Shaq Mullen MD Sodium [Moles/Vol] 142 mmol/L Normal 135-144 [facility] Comment on above: Performed By: #### C MPX, LIP #### [facility] [address] [place] [address] Wash Test Checker: Shaq Mullen MD Urea nitrogen [Mass/Vol] 13 mg/dL Normal 8-23 [facility] Comment on above: Performed By: #### C MPX, LIP #### [facility] [address] [place] [address] Wash Test Checker: Shaq Mullen MD Comprehensive Metabolic Pane l w/ Reflex to MGon 07-01-2023 Albumin [Mass/Vol] 3.4 g/dL Low 3.5 - 5.2 g/dL [facility] ALP [Catalytic activity/Vol] 200 U/L High 40 - 129 U/L [facility] ALT [Catalytic activity/Vol] 205 U/L High 5 - 41 U/L [facility] Anion gap [Moles/Vol] 12 mmol/L 9 - 17 mmol/L [facility] AST [Catalytic activity/Vol] 70 U/L High NINF - 40 U/L [facility] Bilirubin [Mass/Vol] 0.5 mg/dL 0.3 - 1 .2 mg/dL [facility] Calcium [Mass/Vol] 8.9 mg/dL 8.6 - 10. 4 mg/dL [facility] Chloride [Moles/Vol] 107 mmol/L 98 - 10 7 mmol/L [facility] CO2 [Moles/Vol] 23 mmol/L 20 - 31 mmol/L [facility] Creatinine [Mass/Vol] 0.8 mg/dL 0.7 - 1.2 mg/dL [facility] GFR/1.73 sq M.predicted MDRD (S/P/Bld) [Vol rate/Area] - PINF [facility] Comment on above: These results are [...] 107 mg/dL High 70 - 99 mg/dL [facility] Interpretation and review of laboratory results Abnormal [facility] Potassium [Moles/Vol] 3.8 mmol/L 3.7 - 5.3 mmol/L [facility] Protein [Mass/Vol] 6.5 g/dL 6.4 - 8.3 g/dL [facility] Sodium [Moles/Vol] 142 mmol/L 135 - 144 mmol/L [facility] Urea nitrogen [Mass/Vol] 13 mg/dL 8 - 23 mg/dL [facility] Urea nitrogen/Creatinine [Mass ratio] 16 mg/mg 9 - 20 [facility] EKG Rhythm Stripon [facility] Lipaseon 07-01-2023 Lipase [Catalytic activity/Vol] 32 U/L Normal 13-60 [facility] Comment on above: Performed By: #### C MPX, LIP #### [facility] [address] [place] [phone] Wash Test Checker: Shaq Mullen MD Lipase [Catalytic activity/Vol] 32 U/L 13 - 60 U/L [facility] No Panel Informationon 07-01 [facility] CBC with Auto Differentialon 06-30-2023 Basophils (Bld) [#/Vol] 0.02 10*3/uL [facility] Basophils/100 WBC (Bld) 0 % 0 - 2 % [facility] Eosinophils (Bld) [#/Vol] 0.17 10*3/uL [facility] Eosinophils/100 WBC (Bld) 2 % 0 - 5 % [facility] Erythrocyte distribution width (RBC) [Ratio] 13.0 % 12.1 - 15.2 % [facility] Hematocrit (Bld) [Volume fraction] 40.1 % Low 41.0 - 53.0 % [facility] Hemoglobin (Bld) [Mass/Vol] 13.5 g/dL 13.5 - 17.5 g/dL [facility] Immature granulocytes (Bld) [#/Vol] 0.01 10*3/uL [facility] Immature granulocytes/100 WBC (Bld) 0 % 0 - 5 % [facility] Interpretation and review of laboratory results Abnormal [facility] Lymphocytes/100 WBC (Bld) 21 % 13 - 44 % [facility] Lymphocytes/100 WBC (Bld) 1.74 % [facility] MCH (RBC) [Entitic mass] 30.6 pg 26.0 - 34.0 pg [facility] MCHC (RBC) [Mass/Vol] 33.7 g/dL 31.0 - 37.0 g/dL [facility] MCV (RBC) [Entitic vol] 90.9 fL 80.0 - 100.0 fL [facility] Monocytes/100 WBC (Bld) 6 % 5 - 9 % [facility] Monocytes/100 WBC (Bld) 0.49 % [facility] Neutrophils/100 WBC (Bld) 71 % 39 - 75 % [facility] Platelet mean volume (Bld) [Entitic vol] 10.9 fL 6.0 - 12.0 fL [facility] Platelets (Bld) [#/Vol] 289 10*3/uL [facility] RBC (Bld) [#/Vol] 4.41 10*6/uL Low 4.50 - 5.9 0 m/uL [facility] Segmented neutrophils/100 WBC (Bld) 6.03 % [facility] WBC other (Bld) [#/Vol] 8.5 [facility] CBC with Diffon 06-30-2023 Abs. Basophil 0.02 k/uL Normal 0.00-0.20 [facility] Comment on above: Performed By: #### L IPR #### [address] [address] Wash Test Checker: He Driscoll MD Abs.Imm.Granulocyte 0.01 k/uL Normal 0.00-0.30 [facility] Comment on above: Performed By: #### L IPR #### [facility] [employer] [address] [place] [address] Wash Test Checker: He Driscoll MD Abs.Neutrophil (Seg) 6.03 k/uL Normal 2.1-6.5 [facility] Comment on above: Performed By: #### L IPR #### [facility] [employer] [address] [place] [address] Wash Test Checker: He Driscoll MD Basophils/100 WBC (Bld) 0 % Normal 0-2 [facility] Comment on above: Performed By: #### L IPR #### [facility] [employer] [address] [place] [address] Wash Test Checker: He Driscoll MD Eosinophils (Bld) [#/Vol] 0.17 10*3/uL Normal 0.00-0.40 [facility] Comment on above: Performed By: #### L IPR #### [facility] [employer] [address] [place] [address] Wash Test Checker: He Driscoll MD Eosinophils/100 WBC (Bld) 2 % Normal 0-5 [facility] Comment on above: Performed By: #### L IPR #### [address] [address] Wash Test Checker: He Driscoll MD Erythrocyte distribution width (RBC) [Ratio] 13.0 % Normal 12.1-15.2 [facility] Comment on above: Performed By: #### L IPR #### [address] [address] Wash Test Checker: He Driscoll MD Hematocrit (Bld) [Volume fraction] 40.1 % Low 41.0-53.0 [facility] Comment on above: Performed By: #### L IPR #### [address] [address] Wash Test Checker: He Driscoll MD Hemoglobin (Bld) [Mass/Vol] 13.5 g/dL Normal 13.5-17.5 [facility] Comment on above: Performed By: #### L IPR #### [address] [address] Wash Test Checker: He Driscoll MD Immature granulocytes/100 WBC (Bld) 0 % Normal 0-5 [facility] Comment on above: Performed By: #### L IPR #### [address] [address] Wash Test Checker: He Driscoll MD Lymphocytes (Bld) [#/Vol] 1.74 10*3/uL Normal 1.00-4.80 [facility] Comment on above: Performed By: #### L IPR #### [address] [address] Wash Test Checker: He Driscoll MD Lymphocytes/100 WBC (Bld) 21 % Normal 13-44 [facility] Comment on above: Performed By: #### L IPR #### [address] [address] Wash Test Checker: He Driscoll MD MCH (RBC) [Entitic mass] 30.6 pg Normal 26.0-34.0 [facility] Comment on above: Performed By: #### L IPR #### [address] [address] Wash Test Checker: He Driscoll MD MCHC (RBC) [Mass/Vol] 33.7 g/dL Normal 31.0-37.0 [facility] Comment on above: Performed By: #### L IPR #### [address] [address] Wash Test Checker: He Driscoll MD MCV (RBC) [Entitic vol] 90.9 fL Normal 80.0-100.0 [facility] Comment on above: Performed By: #### L IPR #### [address] [address] Wash Test Checker: He Driscoll MD Monocytes (Bld) [#/Vol] 0.49 10*3/uL Normal 0.00-1.00 [facility] Comment on above: Performed By: #### L IPR #### [address] [address] Wash Test Checker: He Driscoll MD Monocytes/100 WBC (Bld) 6 % Normal 5-9 [facility] Comment on above: Performed By: #### L IPR #### [address] [address] Wash Test Checker: He Driscoll MD Neutrophil (Seg) 71 % Normal 39-75 [facility] Comment on above: Performed By: #### L IPR #### [address] [address] Wash Test Checker: He Driscoll MD Platelet mean volume (Bld) [Entitic vol] 10.9 fL Normal 6.0-12.0 [facility] Comment on above: Performed By: #### L IPR #### [address] [place] [address] Wash Test Checker: He Driscoll MD Platelets (Bld) [#/Vol] 289 10*3/uL Normal 140-450 [facility] Comment on above: Performed By: #### L IPR #### [facility] [place] [address] Wash Test Checker: He Driscoll MD RBC (Bld) [#/Vol] 4.41 10*6/uL Low 4.50-5.90 [facility] Comment on above: Performed By: #### L IPR #### [address] [address] Wash Test Checker: He Driscoll MD WBC (Bld) [#/Vol] 8.5 10*3/uL Normal 3.5-11.0 [facility] Comment on above: Performed By: #### L IPR #### [address] [address] Wash Test Checker: He Driscoll MD Comp Metabolic Pr/rfx MGon 0 - Albumin [Mass/Vol] 3.4 g/dL Low 3.5-5.2 [facility] Comment on above: Performed By: #### L IPR #### [address] [address] Wash Test Checker: He Driscoll MD Alkaline Phos 249 U/L High 40-129 [facility] Comment on above: Performed By: #### L IPR #### [facility] [place] [address] Wash Test Checker: He Driscoll MD ALT [Catalytic activity/Vol] 286 U/L High 5-41 [facility] Comment on above: Performed By: #### L IPR #### [facility] [address] [place] [address] Wash Test Checker: He Driscoll MD Anion gap [Moles/Vol] 16 mmol/L Normal 9-17 [facility] Comment on above: Performed By: #### L IPR #### [address] [address] Wash Test Checker: He Driscoll MD AST [Catalytic activity/Vol] 151 U/L High <40 [facility] Comment on above: Performed By: #### L IPR #### [address] [address] Wash Test Checker: He Driscoll MD Bilirubin [Mass/Vol] 0.6 mg/dL Normal 0.3-1.2 [facility] Comment on above: Performed By: #### L IPR #### [address] [address] Wash Test Checker: He Driscoll MD BUN/CRE Ratio 19 Normal 9-20 [facility] Comment on above: Performed By: #### L IPR #### [address] [address] Wash Test Checker: He Driscoll MD Calcium [Mass/Vol] 9.2 mg/dL Normal 8.6-10.4 [facility] Comment on above: Performed By: #### L IPR #### [address] [address] Wash Test Checker: He Driscoll MD Chloride [Moles/Vol] 104 mmol/L Normal 98-107 [facility] Comment on above: Performed By: #### L IPR #### [address] [address] Wash Test Checker: He Driscoll MD CO2 [Moles/Vol] 20 mmol/L Normal 20-31 [facility] Comment on above: Performed By: #### L IPR #### [address] [address] Wash Test Checker: He Driscoll MD Creatinine [Mass/Vol] 0.9 mg/dL Normal 0.7-1.2 [facility] Comment on above: Performed By: #### L IPR #### [facility] [address] [place] [phone] Wash Test Checker: He Driscoll MD GFR/1.73 sq M.predicted among non-blacks MDRD (S/P/Bld) [Vol rate/Area] mL/min/{1.73_m2} Normal >60 [facility] Comment on above: Result Comment: These results [...] secretion. Performed By: #### L IPR #### [facility] [address] [place] [phone] Wash Test Checker: He Driscoll MD Glucose [Mass/Vol] 97 mg/dL Normal 70-99 [facility] Comment on above: Performed By: #### L IPR #### [facility] [address] [place] [address] Wash Test Checker: He Driscoll MD Potassium [Moles/Vol] 3.6 mmol/L Low 3.7-5.3 [facility] Comment on above: Performed By: #### L IPR #### [facility] [address] [place] [phone] Wash Test Checker: He Driscoll MD Protein [Mass/Vol] 6.6 g/dL Normal 6.4-8.3 [facility] Comment on above: Performed By: #### L IPR #### [facility] [address] [place] [address] [phone] Wash Test Checker: He Driscoll MD Sodium [Moles/Vol] 140 mmol/L Normal 135-144 [facility] Comment on above: Performed By: #### L IPR #### [facility] [address] [place] [address] [phone] Wash Test Checker: He Driscoll MD Urea nitrogen [Mass/Vol] 17 mg/dL Normal 8-23 [facility] Comment on above: Performed By: #### L IPR #### [facility] [address] [place], [place] [phone] Wash Test Checker: He Driscoll MD Comprehensive Metabolic Pane l w/ Reflex to MGon 06-30-2023 Albumin [Mass/Vol] 3.4 g/dL Low 3.5 - 5.2 g/dL [facility] ALP [Catalytic activity/Vol] 249 U/L High 40 - 129 U/L [facility] ALT [Catalytic activity/Vol] 286 U/L High 5 - 41 U/L [facility] Anion gap [Moles/Vol] 16 mmol/L 9 - 17 mmol/L [facility] AST [Catalytic activity/Vol] 151 U/L High NINF - 40 U/L [facility] Bilirubin [Mass/Vol] 0.6 mg/dL 0.3 - 1 .2 mg/dL [facility] Calcium [Mass/Vol] 9.2 mg/dL 8.6 - 10. 4 mg/dL [facility] Chloride [Moles/Vol] 104 mmol/L 98 - 10 7 mmol/L [facility] CO2 [Moles/Vol] 20 mmol/L 20 - 31 mmol/L [facility] Creatinine [Mass/Vol] 0.9 mg/dL 0.7 - 1.2 mg/dL [facility] GFR/1.73 sq M.predicted MDRD (S/P/Bld) [Vol rate/Area] - PINF [facility] Comment on above: These results are [...] [Mass/Vol] 97 mg/dL 70 - 99 mg/dL [facility] Potassium [Moles/Vol] 3.6 mmol/L Low 3.7 - 5.3 mmol/L [facility] Protein [Mass/Vol] 6.6 g/dL 6.4 - 8.3 g/dL [facility] Sodium [Moles/Vol] 140 mmol/L 135 - 144 mmol/L [facility] Urea nitrogen [Mass/Vol] 17 mg/dL 8 - 23 mg/dL [facility] Urea nitrogen/Creatinine [Mass ratio] 19 mg/mg 9 - 20 [facility] EKG 12 Leadon 06-30-2023 Atrial Rate 69 BPM [facility] P [place] 52 degrees [facility] P-R Interval 204 ms [facility] Q-T Interval 388 ms [facility] QRS Duration 96 ms [facility] QTc Calculation (Bazett) 415 ms [facility] R [place] 28 degrees [facility] T [place] 21 degrees [facility] Ventricular Rate 69 BPM [facility] Normal sinus rhythm Normal ECG [facility] Mychal Fontana MD - 06/30/2023 Normal sinus rhythm Normal ECG [facility] EKG [facility] Lipaseon 06-30-2023 Lipase [Catalytic activity/Vol] 137 U/L High 13-60 [facility] [facility] Comment on above: Performed By: #### L IPR #### [facility] [facility] [place] [address] Wash Test Checker: He Driscoll MD Lipase [Catalytic activity/Vol] 137 U/L High 13 - 60 U/L [facility] Lipid Panelon 06-30-2023 Cholesterol [Mass/Vol] 100 mg/dL NINF - 200 mg/dL [facility] Comment on above: Cholesterol Guidelines: <200 Desirable 200-240 Borderline >240 Undesirable Cholesterol in HDL [Mass/Vol] 26 mg/dL Low 40 - PINF mg/dL [facility] Comment on above: HDL Guidelines: <40 Undesirable 40-59 Borderline >59 Desirable Cholesterol in LDL [Mass/Vol] 54 mg/dL 0 - 130 mg/dL [facility] Comment on above: LDL Guidelines: <100 Desirable 100-129 Near to/above Desirable 130-159 Borderline >159 Undesirable Direct (measured) LDL and calculated LDL are not interchangeable tests. Cholesterol.total/Cho lesterol in HDL [Mass ratio] 3.8 {ratio} NINF - 5 [facility] Interpretation and review of laboratory results Abnormal [facility] Triglyceride [Mass/Vol] 99 mg/dL NINF - 150 mg/dL [facility] Comment on above: Triglyceride Guidelines: <150 Desirable 150-199 Borderline 200-499 High >499 Very high Based on AHA Guidelines for fasting triglyceride, February 2012. [facility] Lipid Profileon 06-30-2023 Cholesterol [Mass/Vol] 100 mg/dL Normal <200 [facility] Comment on above: Result Comment: Cholesterol Guidelines: <200 Desirable 200-240 Borderline >240 Undesirable Performed By: #### L IPR #### [employer] [address] [place] [address] Wash Test Checker: He Driscoll MD Cholesterol in HDL [Mass/Vol] 26 mg/dL Low >40 [facility] Comment on above: Result Comment: HDL Guidelines: <40 Undesirable 40-59 Borderline >59 Desirable Performed By: #### L IPR #### [facility] [address] [place], [place] [phone] Wash Test Checker: He Driscoll MD Cholesterol in LDL [Mass/Vol] 54 mg/dL Normal 0-130 [facility] Comment on above: Result Comment: LDL Guidelines: <100 Desirable 100-129 Near to/above Desirable 130-159 Borderline >159 Undesirable Direct (measured) LDL and calculated LDL are not interchangeable tests. Performed By: #### L IPR #### [facility] [address] [place] [id number] Wash Test Checker: He Driscoll MD Cholesterol.total/Cho lesterol in HDL [Mass ratio] 3.8 {ratio} Normal <5 [facility] Comment on above: Performed By: #### L IPR #### [facility] [address] [place], [place] [phone] Wash Test Checker: He Driscoll MD Triglyceride [Mass/Vol] 99 mg/dL Normal <150 [facility] Comment on above: Result Comment: Triglyceride Guidelines: <150 Desirable 150-199 Borderline 200-499 High >499 Very high Based on AHA Guidelines for fasting triglyceride, February 2012. Performed By: #### L IPR #### [facility] [employer] [address] [place], [place] [id number] Wash Test Checker: He Driscoll MD No Panel Informationon 06-30 [facility] Interpretation and review of laboratory results Abnormal [facility] CBC with Auto Differentialon 06-29-2023 Basophils (Bld) [#/Vol] 0.02 10*3/uL [facility] Basophils/100 WBC (Bld) 0 % 0 - 2 % [facility] Eosinophils (Bld) [#/Vol] 0.09 10*3/uL [facility] Eosinophils/100 WBC (Bld) 1 % 0 - 5 % [facility] Erythrocyte distribution width (RBC) [Ratio] 12.9 % 12.1 - 15.2 % [facility] Hematocrit (Bld) [Volume fraction] 42.9 % 41.0 - 53.0 % [facility] Hemoglobin (Bld) [Mass/Vol] 14.5 g/dL 13.5 - 17.5 g/dL [facility] Immature granulocytes (Bld) [#/Vol] 0.01 10*3/uL [facility] Immature granulocytes/100 WBC (Bld) 0 % 0 - 5 % [facility] Interpretation and review of laboratory results Abnormal [facility] Lymphocytes/100 WBC (Bld) 9 % Low 13 - 44 % [facility] Lymphocytes/100 WBC (Bld) 1.05 % [facility] MCH (RBC) [Entitic mass] 30.7 pg 26.0 - 34.0 pg [facility] MCHC (RBC) [Mass/Vol] 33.8 g/dL 31.0 - 37.0 g/dL [facility] MCV (RBC) [Entitic vol] 90.7 fL 80.0 - 100.0 fL [facility] Monocytes/100 WBC (Bld) 7 % 5 - 9 % [facility] Monocytes/100 WBC (Bld) 0.84 % [facility] Neutrophils/100 WBC (Bld) 83 % High 39 - 75 % [facility] Platelet mean volume (Bld) [Entitic vol] 10.6 fL 6.0 - 12.0 fL [facility] Platelets (Bld) [#/Vol] 308 10*3/uL [facility] RBC (Bld) [#/Vol] 4.73 10*6/uL 4.50 - 5.9 0 m/uL [facility] Segmented neutrophils/100 WBC (Bld) 9.48 % High [facility] WBC other (Bld) [#/Vol] 11.5 High [facility] CBC with Diffon 06-29-2023 Abs. Basophil 0.02 k/uL Normal 0.00-0.20 [facility] Comment on above: Performed By: #### C DP, LACTIC, LIP, CP #### [facility] [address] [place] [address] Wash Test Checker: Shaq Mullen MD Abs.Imm.Granulocyte 0.01 k/uL Normal 0.00-0.30 [facility] Comment on above: Performed By: #### C DP, LACTIC, LIP, CP #### [facility] [address] [place] [address] Wash Test Checker: Shaq Mullen MD Abs.Neutrophil (Seg) 9.48 k/uL High 2.1-6.5 [facility] Comment on above: Performed By: #### C DP, LACTIC, LIP, CP #### [facility] [address] [place] [phone] Wash Test Checker: Shaq Mullen MD Basophils/100 WBC (Bld) 0 % Normal 0-2 [facility] Comment on above: Performed By: #### C DP, LACTIC, LIP, CP #### [facility] [address] [place] [phone] Wash Test Checker: Shaq Mullen MD Eosinophils (Bld) [#/Vol] 0.09 10*3/uL Normal 0.00-0.40 [facility] Comment on above: Performed By: #### C DP, LACTIC, LIP, CP #### [facility] [address] [place] [address] Wash Test Checker: Shaq Mullen MD Eosinophils/100 WBC (Bld) 1 % Normal 0-5 [facility] Comment on above: Performed By: #### C DP, LACTIC, LIP, CP #### [facility] [address] [place] [phone] Wash Test Checker: Shaq Mullen MD Erythrocyte distribution width (RBC) [Ratio] 12.9 % Normal 12.1-15.2 [facility] Comment on above: Performed By: #### C DP, LACTIC, LIP, CP #### [facility] [address] [place] [phone] Wash Test Checker: Shaq Mullen MD Hematocrit (Bld) [Volume fraction] 42.9 % Normal 41.0-53.0 [facility] Comment on above: Performed By: #### C DP, LACTIC, LIP, CP #### [facility] [address] [place] [phone] Wash Test Checker: Shaq Mullen MD Hemoglobin (Bld) [Mass/Vol] 14.5 g/dL Normal 13.5-17.5 [facility] Comment on above: Performed By: #### C DP, LACTIC, LIP, CP #### [facility] [address] [place] [phone] Wash Test Checker: Shaq Mullen MD Immature granulocytes/100 WBC (Bld) 0 % Normal 0-5 [facility] Comment on above: Performed By: #### C DP, LACTIC, LIP, CP #### [facility] [address] [place] [address] Wash Test Checker: Shaq Mullen MD Lymphocytes (Bld) [#/Vol] 1.05 10*3/uL Normal 1.00-4.80 [facility] Comment on above: Performed By: #### C DP, LACTIC, LIP, CP #### [facility] [address] [place] [address] Wash Test Checker: Shaq Mullen MD Lymphocytes/100 WBC (Bld) 9 % Low 13-44 [facility] Comment on above: Performed By: #### C DP, LACTIC, LIP, CP #### [facility] [address] [place] [phone] Wash Test Checker: Shaq Mullen MD MCH (RBC) [Entitic mass] 30.7 pg Normal 26.0-34.0 [facility] Comment on above: Performed By: #### C DP, LACTIC, LIP, CP #### [facility] [address] [place] [address] Wash Test Checker: Shaq Mullen MD MCHC (RBC) [Mass/Vol] 33.8 g/dL Normal 31.0-37.0 [facility] Comment on above: Performed By: #### C DP, LACTIC, LIP, CP #### [facility] [address] [place] [address] Wash Test Checker: Shaq Mullen MD MCV (RBC) [Entitic vol] 90.7 fL Normal 80.0-100.0 [facility] Comment on above: Performed By: #### C DP, LACTIC, LIP, CP #### [facility] [address] [place], [place] [phone] Wash Test Checker: Shaq Mullen MD Monocytes (Bld) [#/Vol] 0.84 10*3/uL Normal 0.00-1.00 [facility] Comment on above: Performed By: #### C DP, LACTIC, LIP, CP #### [facility] [address] [place], [place] [phone] Wash Test Checker: Shaq Mullen MD Monocytes/100 WBC (Bld) 7 % Normal 5-9 [facility] Comment on above: Performed By: #### C DP, LACTIC, LIP, CP #### [facility] [address] [place] [address] Wash Test Checker: Shaq Mullen MD Neutrophil (Seg) 83 % High 39-75 [facility] Comment on above: Performed By: #### C DP, LACTIC, LIP, CP #### [facility] [address] [place], [place] [id number] Wash Test Checker: Shaq Mullen MD Platelet mean volume (Bld) [Entitic vol] 10.6 fL Normal 6.0-12.0 [facility] Comment on above: Performed By: #### C DP, LACTIC, LIP, CP #### [facility] [address] [place], [place] [phone] Wash Test Checker: Shaq Mullen MD Platelets (Bld) [#/Vol] 308 10*3/uL Normal 140-450 [facility] Comment on above: Performed By: #### C DP, LACTIC, LIP, CP #### [facility] [address] [place], [place] [phone] Wash Test Checker: Shaq Mullen MD RBC (Bld) [#/Vol] 4.73 10*6/uL Normal 4.50-5.90 [facility] Comment on above: Performed By: #### C DP, LACTIC, LIP, CP #### [facility] [address] [place] [address] Wash Test Checker: Shaq Mullen MD WBC (Bld) [#/Vol] 11.5 10*3/uL High 3.5-11.0 [facility] Comment on above: Performed By: #### C DP, LACTIC, LIP, CP #### [facility] [address] [place] [address] Wash Test Checker: Shaq Mullen MD CT ABDOMEN PELVIS W [...] Gagandeep Delcid MD 06/29/23 Final result Normal [facility] CT Abdomen and Pelvis W cont rast [...] prior inguinal hernia repair on the left. [facility] Radiology Study observation (narrative) [facility] CT Abdomen and Pelvis W cont rast IVOrdered By: Gagandeep Delcid on 06-29-2023 [facility] Work Phone: Comp Metabolic Profon 2023 Albumin [Mass/Vol] 4.1 g/dL Normal 3.5-5.2 [facility] Comment on above: Performed By: #### C DP, LACTIC, LIP, CP #### [facility] [address] [place], [place] [address] Wash Test Checker: Shaq Mullen MD Alkaline Phos 265 U/L High 40-129 [facility] Comment on above: Performed By: #### C DP, LACTIC, LIP, CP #### [facility] [address] [place] [address] Wash Test Checker: Shaq Mullen MD ALT [Catalytic activity/Vol] 343 U/L High 5-41 [facility] Comment on above: Performed By: #### C DP, LACTIC, LIP, CP #### [facility] [address] [place], [place] [phone] Wash Test Checker: Shaq Mullen MD Anion gap [Moles/Vol] 11 mmol/L Normal 9-17 [facility] Comment on above: Performed By: #### C DP, LACTIC, LIP, CP #### [facility] [address] [place] [phone] Wash Test Checker: Shaq Mullen MD AST [Catalytic activity/Vol] 326 U/L High <40 [facility] Comment on above: Performed By: #### C DP, LACTIC, LIP, CP #### [facility] [address] [place] [phone] Wash Test Checker: Shaq Mullen MD Bilirubin [Mass/Vol] 1.7 mg/dL High 0.3-1.2 [facility] Comment on above: Performed By: #### C DP, LACTIC, LIP, CP #### [facility] [address] [place] [address] Wash Test Checker: Shaq Mullen MD BUN/CRE Ratio 23 High 9-20 [facility] Comment on above: Performed By: #### C DP, LACTIC, LIP, CP #### [facility] [address] [place] [phone] Wash Test Checker: Shaq Mullen MD Calcium [Mass/Vol] 10.0 mg/dL Normal 8.6-10.4 [facility] Comment on above: Performed By: #### C DP, LACTIC, LIP, CP #### [facility] [address] [place] [phone] Wash Test Checker: Shaq Mullen MD Chloride [Moles/Vol] 101 mmol/L Normal 98-107 [facility] Comment on above: Performed By: #### C DP, LACTIC, LIP, CP #### [facility] [address] [place] [address] Wash Test Checker: Shaq Mullen MD CO2 [Moles/Vol] 26 mmol/L Normal 20-31 [facility] Comment on above: Performed By: #### C DP, LACTIC, LIP, CP #### [facility] [address] [place], [place] [phone] Wash Test Checker: Shaq Mullen MD Creatinine [Mass/Vol] 0.8 mg/dL Normal 0.7-1.2 [facility] Comment on above: Performed By: #### C DP, LACTIC, LIP, CP #### [facility] [address] [place], [place] [phone] Wash Test Checker: Shaq Mullen MD GFR/1.73 sq M.predicted among non-blacks MDRD (S/P/Bld) [Vol rate/Area] mL/min/{1.73_m2} Normal >60 [facility] Comment on above: Result Comment: These results [...] #### C DP, LACTIC, LIP, CP #### [facility] [address] [place] [address] Wash Test Checker: Shaq Mullen MD Glucose [Mass/Vol] 165 mg/dL High 70-99 [facility] Comment on above: Performed By: #### C DP, LACTIC, LIP, CP #### [facility] [address] [place], [place] [id number] Wash Test Checker: Shaq Mullen MD Potassium [Moles/Vol] 4.2 mmol/L Normal 3.7-5.3 [facility] Comment on above: Performed By: #### C DP, LACTIC, LIP, CP #### [facility] [address] [place], [place] [address] Wash Test Checker: Shaq Mullen MD Protein [Mass/Vol] 7.2 g/dL Normal 6.4-8.3 [facility] Comment on above: Performed By: #### C DP, LACTIC, LIP, CP #### [facility] [address] [place] [address] Wash Test Checker: Shaq Mullen MD Sodium [Moles/Vol] 138 mmol/L Normal 135-144 [facility] Comment on above: Performed By: #### C DP, LACTIC, LIP, CP #### [facility] [address] [place] [address] Wash Test Checker: Shaq Mullen MD Urea nitrogen [Mass/Vol] 18 mg/dL Normal 8-23 [facility] Comment on above: Performed By: #### C DP, LACTIC, LIP, CP #### [facility] [address] [place] [address] Wash Test Checker: Shaq Mullen MD Comprehensive Metabolic Pane [facility] 06-29-2023 Albumin [Mass/Vol] 4.1 g/dL 3.5 - 5.2 g/dL [facility] ALP [Catalytic activity/Vol] 265 U/L High 40 - 129 U/L [facility] ALT [Catalytic activity/Vol] 343 U/L High 5 - 41 U/L [facility] Anion gap [Moles/Vol] 11 mmol/L 9 - 17 mmol/L [facility] AST [Catalytic activity/Vol] 326 U/L High NINF - 40 U/L [facility] Bilirubin [Mass/Vol] 1.7 mg/dL High 0.3 - 1 .2 mg/dL [facility] Calcium [Mass/Vol] 10.0 mg/dL 8.6 - 10. 4 mg/dL [facility] Chloride [Moles/Vol] 101 mmol/L 98 - 10 7 mmol/L [facility] CO2 [Moles/Vol] 26 mmol/L 20 - 31 mmol/L [facility] Creatinine [Mass/Vol] 0.8 mg/dL 0.7 - 1.2 mg/dL [facility] GFR/1.73 sq M.predicted MDRD (S/P/Bld) [Vol rate/Area] - PINF [facility] Comment on above: These results are [...] 165 mg/dL High 70 - 99 mg/dL [facility] Potassium [Moles/Vol] 4.2 mmol/L 3.7 - 5.3 mmol/L [facility] Protein [Mass/Vol] 7.2 g/dL 6.4 - 8.3 g/dL [facility] Sodium [Moles/Vol] 138 mmol/L 135 - 144 mmol/L [facility] Urea nitrogen [Mass/Vol] 18 mg/dL 8 - 23 mg/dL [facility] Urea nitrogen/Creatinine [Mass ratio] 23 mg/mg High 9 - 20 [facility] Lactic Acidon 06-29-2023 Lactate [Moles/Vol] 1.5 mmol/L Normal 0.5-2.2 [facility] Comment on above: Performed By: #### C DP, LACTIC, LIP, CP #### [facility] [address] [place] [address] Wash Test Checker: Shaq Mullen MD Lactate (BldV) [Moles/Vol] 1.5 mmol/L 0.5 - 2.2 mmol/L [facility] Lipaseon 06-29-2023 Lipase [Catalytic activity/Vol] U/L Critically high 13-60 [facility] Comment on above: Performed By: #### C DP, LACTIC, LIP, CP #### [facility] [address] [place] [address] Wash Test Checker: Shaq Mullen MD Lipase [Catalytic activity/Vol] U/L Critically high 13 - 60 U/L [facility] No Panel Informationon 06-29 Interpretation and review of laboratory results Abnormal [facility] Troponinon 06-29-2023 Troponin, High Sens 16 ng/L Normal 0-22 [facility] Comment on above: Result Comment: High Sensitivity Troponin values cannot be compared with other Troponin methodologies. Performed By: #### T NILA #### [facility] [address] [place] [address] Wash Test Checker: Shaq Mullen MD Troponin I.cardiac High sensitivity method [Mass/Vol] 16 ng/L 0 - 22 ng/L [facility] Comment on above: High Sensitivity Tro ponin values cannot be compared with other Troponin methodologies. [facility] US GALLBLADDER RUQon 024 US GALLBLADDER [...] Shaq Meyer MD 06/29/23 Final result Normal [facility] US Gallbladderon 06-29-2023 Moderate cholelithiasis and gallbladder [...] sludge with gallbladder wall thickening suggesting cholecystitis [facility] Radiology Study observation (narrative) [facility] US GallbladderOrdered By: Oscar Meyer on 06-29-[address] [facility] [address] FOOT LEFT WO CONTRASTon 0 02-15-2023 CT FOOT LEFT WO CONTRAST EXAM: CT scan left foot and ankle - 02/15/2023. HISTORY:Left foot pain and pain in the left great toe. Hallux rigidus of the left foot. 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 Preoperative evaluation. COMPARISON: Radiographs left foot obtained at [facility] 12/20/2022. TECHNIQUE: Multiple contiguous axial CT [...] Chuy Max MD 02/15/23 Final result Normal [facility] Comp Metabolic Profon 2022 Albumin [Mass/Vol] 4.0 g/dL Normal 3.5-5.2 [facility] Comment on above: Performed By: #### C P #### [facility] [address] [place] [address] Wash Test Checker: Shaq Mullen MD Alkaline Phos 117 U/L Normal 40-129 [facility] Comment on above: Performed By: #### C P #### [facility] [address] [place] [address] Wash Test Checker: Shaq Mullen MD ALT [Catalytic activity/Vol] 25 U/L Normal 5-41 [facility] Comment on above: Performed By: #### C P #### [facility] [address] [place] [address] Wash Test Checker: Shaq Mullen MD Anion gap [Moles/Vol] 11 mmol/L Normal 9-17 [facility] Comment on above: Performed By: #### C P #### [facility] [address] [place] [address] Wash Test Checker: Shaq Mullen MD AST [Catalytic activity/Vol] 22 U/L Normal <40 [facility] Comment on above: Performed By: #### C P #### [facility] [address] [place] [address] Wash Test Checker: Shaq Mullen MD Bilirubin [Mass/Vol] 0.4 mg/dL Normal 0.3-1.2 [facility] Comment on above: Performed By: #### C P #### [facility] [address] [place] [address] Wash Test Checker: Shaq Mullen MD BUN/CRE Ratio 19 Normal 9-20 [facility] Comment on above: Performed By: #### C P #### [facility] [address] [place], [place] [phone] Wash Test Checker: Shaq Mullen MD Calcium [Mass/Vol] 9.7 mg/dL Normal 8.6-10.4 [facility] Comment on above: Performed By: #### C P #### [facility] [address] [place], [place] [phone] Wash Test Checker: Shaq Mullen MD Chloride [Moles/Vol] 104 mmol/L Normal 98-107 [facility] Comment on above: Performed By: #### C P #### [facility] [address] [place], [place] [phone] Wash Test Checker: Shaq Mullen MD CO2 [Moles/Vol] 22 mmol/L Normal 20-31 [facility] Comment on above: Performed By: #### C P #### [facility] [address] [place], [place] [phone] Wash Test Checker: Shaq Mullen MD Creatinine [Mass/Vol] 0.95 mg/dL Normal 0.70-1.20 [facility] Comment on above: Performed By: #### C P #### [facility] [address] [place], [place] [phone] Wash Test Checker: Shaq Mullen MD GFR/1.73 sq M.predicted among non-blacks MDRD (S/P/Bld) [Vol rate/Area] mL/min/{1.73_m2} Normal >60 [facility] Comment on above: Result Comment: These results [...] secretion. Performed By: #### C P #### [facility] [address] [place], [place] [id number] Wash Test Checker: Shaq Mullen MD Glucose [Mass/Vol] 137 mg/dL High 70-99 [facility] Comment on above: Performed By: #### C P #### [facility] [address] [place], [place] [phone] Wash Test Checker: Shaq Mullen MD Potassium [Moles/Vol] 3.8 mmol/L Normal 3.7-5.3 [facility] Comment on above: Performed By: #### C P #### [facility] [address] [place], [place] [id number] Wash Test Checker: Shaq Mullen MD Protein [Mass/Vol] 7.1 g/dL Normal 6.4-8.3 [facility] Comment on above: Performed By: #### C P #### [facility] [address] [place], [place] [phone] Wash Test Checker: Shaq Mullen MD Sodium [Moles/Vol] 137 mmol/L Normal 135-144 [facility] Comment on above: Performed By: #### C P #### [facility] [address] [place], [place] [phone] Wash Test Checker: Shaq Mullen MD Urea nitrogen [Mass/Vol] 18 mg/dL Normal 8-23 [facility] Comment on above: Performed By: #### C P #### [facility] [address] [place], [place] [id number] Wash Test Checker: Shaq Mullen MD Comprehensive Metabolic Pane ko 10-05-2022 Albumin [Mass/Vol] 4 g/dL 3.5 - 5.2 g/dL [facility] ALP [Catalytic activity/Vol] 117 U/L 40 - 129 U/L [facility] ALT [Catalytic activity/Vol] 25 U/L 5 - 41 U/L [facility] Anion gap [Moles/Vol] 11 mmol/L 9 - 17 mmol/L [facility] AST [Catalytic activity/Vol] 22 U/L NINF - 40 U/L [facility] Bilirubin [Mass/Vol] 0.4 mg/dL 0.3 - 1 .2 mg/dL [facility] Calcium [Mass/Vol] 9.7 mg/dL 8.6 - 10. 4 mg/dL [facility] Chloride [Moles/Vol] 104 mmol/L 98 - 10 7 mmol/L [facility] CO2 [Moles/Vol] 22 mmol/L 20 - 31 mmol/L [facility] Creatinine [Mass/Vol] 0.95 mg/dL 0.70 - 1.20 mg/dL [facility] GFR/1.73 sq M.predicted MDRD (S/P/Bld) [Vol rate/Area] - PINF [facility] Comment on above: These results are [...] 137 mg/dL High 70 - 99 mg/dL [facility] Interpretation and review of laboratory results Abnormal [facility] Potassium [Moles/Vol] 3.8 mmol/L 3.7 - 5.3 mmol/L [facility] Protein [Mass/Vol] 7.1 g/dL 6.4 - 8.3 g/dL [facility] Sodium [Moles/Vol] 137 mmol/L 135 - 144 mmol/L [facility] Urea nitrogen [Mass/Vol] 18 mg/dL 8 - 23 mg/dL [facility] Urea nitrogen/Creatinine (Bld) [Mass ratio] 19 9 - 20 [facility] CT CERVICAL SPINE WO CONTRAS Ton 08-16-2022 [...] Rick Dominguez MD 08/16/22 Final result Normal [facility] 1. No fracture or malalignment. 2. Moderate [...] or other acute bony abnormality is seen. [facility] Rick Islas MD - 08/16/2022 [...] arthrosis, resulting in mild right foraminal stenosis. [employer] Phone: Radiology Study observation (narrative) [employer] Phone: CT CERVICAL SPINE WO CONTRAS TOrdered By: Rick Dominguez on 08-16-2022 [employer] Phone: CT THORACIC SPINE WO CONTRAS Ton [...] by: Alexi Toussaint MD 08/16/22 Final result [facility] This is a negative CT scan of [...] central canal stenosis throughout the thoracic spine. [facility] Alexi Rowan MD - 08/16/2022 [...] fractures or loss of vertebral body height. [facility] Work Phone: Radiology Study observation (narrative) [facility] [employer] Work Phone: CT THORACIC SPINE WO CONTRAS TOrdered By: Alexi Toussaint on 08-16-2022 [facility] Work Phone: CBC with Auto Differentialon 01-25-2022 Absolute Eos # 0.20 [place] [facility] Absolute Lymph # 1.60 [facility] SECO URS [facility] Absolute [place] # 0.50 [facility] RS [facility] [employer] Basophils (Bld) [#/Vol] 0.00 10*3/uL [facility] Basophils/100 WBC (Bld) 0 % 0 - 2 % [facility] [employer] Differential Type YES [facility] Eosinophils/100 WBC (Bld) 2 % 0 - 5 % [facility] Hematocrit (Bld) [Volume fraction] 44.6 % 41 - 53 % [facility] Hemoglobin (Bld) [Mass/Vol] 15.0 g/dL 13.5 - 17.5 g/dL [facility] Lymphocytes/100 WBC (Bld) 20 % 13 - 44 % [facility] MCH (RBC) [Entitic mass] 30.2 pg 26 - 34 pg [facility] MCHC (RBC) [Mass/Vol] 33.7 g/dL 31 - 37 g/dL [facility] MCV (RBC) [Entitic vol] 89.6 fL 80 - 100 fL [facility] Monocytes/100 WBC (Bld) 7 % 5 - 9 % [facility] Platelet distribution width (Bld) [Ratio] 13.5 % 12.1 - 15.2 % [facility] Platelets (Bld) [#/Vol] 264 10*3/uL [facility] RBC (Bld) [#/Vol] 4.98 10*6/uL 4.5 - 5.9 m/uL [facility] Segmented neutrophils/100 WBC (Bld) 71 % 39 - 75 % [facility] Segs Absolute 5.60 [facility] WBC (Bld) [#/Vol] 7.9 10*3/uL [facility] Comprehensive Metabolic Pane ko 01-25-2022 Albumin [Mass/Vol] 4.3 g/dL 3.5 - 5.2 g/dL [facility] ALP (Bld) [Catalytic activity/Vol] 124 U/L 40 - 129 U/L [facility] ALT [Catalytic activity/Vol] 24 U/L 5 - 41 U/L [facility] Anion gap [Moles/Vol] 11 mmol/L 9 - 17 mmol/L [facility] AST [Catalytic activity/Vol] 21 U/L NINF - 40 U/L [facility] Bilirubin [Mass/Vol] 0.60 mg/dL 0.3 - 1 .2 mg/dL [facility] Calcium [Mass/Vol] 9.5 mg/dL 8.6 - 10. 4 mg/dL [facility] Chloride [Moles/Vol] 101 mmol/L 98 - 10 7 mmol/L [facility] CO2 [Moles/Vol] 24 mmol/L 20 - 31 mmol/L [facility] Creatinine [Mass/Vol] 0.89 mg/dL 0.7 - 1.2 mg/dL [facility] Free PSA/Total PSA [Mass fraction] 7.3 g/dL 6.4 - 8.3 g/dL [facility] GFR >60 60 - PI NF mL/min [facility] GFR Non- >60 60 - PINF mL/min [facility] GFR/1.73 sq M.predicted MDRD (S/P/Bld) [Vol rate/Area] [facility] Comment on above: Average GFR for 60-6 9 years old: 85 mL/min/1.73sq m Chronic Kidney Disease: <60 mL/min/1.73sq m Kidney failure: <15 mL/min/1.73sq m eGFR calculated using average adult body mass. Additional eGFR calculator available at: http://www.[employer]/multiple_crcl_2011.htm Glucose [Mass/Vol] 120 mg/dL High 70 - 99 mg/dL [facility] Interpretation and review of laboratory results Abnormal [facility] Potassium [Moles/Vol] 4.3 mmol/L 3.7 - 5.3 mmol/L [facility] Sodium [Moles/Vol] 136 mmol/L 135 - 144 mmol/L [facility] Urea nitrogen (BldV) [Mass/Vol] 16 mg/dL 8 - 23 mg/dL [facility] Urea nitrogen/Creatinine (Bld) [Mass ratio] 18 9 - 20 [facility] Lipid Panelon 01-25-2022 Cholesterol [Mass/Vol] 95 mg/dL NINF - 200 mg/dL [facility] Comment on above: Cholesterol Guidelines: <200 Desirable 200-240 Borderline >240 Undesirable Cholesterol in HDL [Mass/Vol] 27 mg/dL Low 40 - PINF mg/dL [facility] Comment on above: HDL Guidelines: <40 Undesirable 40-59 Borderline >59 Desirable Cholesterol in LDL [Mass/Vol] 55 mg/dL 0 - 130 mg/dL [facility] Comment on above: LDL Guidelines: <100 Desirable 100-129 Near to/above Desirable 130-159 Borderline >159 Undesirable Direct (measured) LDL and calculated LDL are not interchangeable tests. Cholesterol.total/Cho lesterol in HDL [Mass ratio] 3.5 {ratio} NINF - 5 [facility] Interpretation and review of laboratory results Abnormal [facility] Triglyceride [Mass/Vol] 67 mg/dL NINF - 150 mg/dL [facility] Comment on above: Triglyceride Guidelines: <150 Desirable 150-199 Borderline 200-499 High >499 Very high Based on AHA Guidelines for fasting triglyceride, February 2012. [facility] PSA Screeningon 01-25-2022 [facility] Patient Fasting?on 2 Patient Fasting? YES [facility] COVID-19, Rapidon 07-28-2021 SARS-CoV-2 (COVID-19) RNA JORGITO+probe Ql (Unsp spec) Not detected Not Detected [facility] Comment on above: Rapid NAAT: The specimen [...] management decisions. Fact sheet for Healthcare Providers: https://www.fda.gov/media/556342/download Fact sheet for Patients: https://www.fda.gov/media/548901/download Methodology: Isothermal Nucleic Acid Amplification Specimen Description .NASOPHARYNGEAL SWAB [facility] No Panel Informationon 07-28 Direct Exam Negative [facility] Rapid Influenza A/B Antigens on 07-28-2021 Specimen Description .NASOPHARYNGEAL SWAB [facility] CBC Auto Differentialon 12-2 Basophils (Bld) [#/Vol] 0.00 10*3/uL [place] Basophils/100 WBC (Bld) 1 % 0 - 2 % [place] Differential Type YES [place] Eosinophils (Bld) [#/Vol] 0.10 10*3/uL [place] Eosinophils/100 WBC (Bld) 1 % 0 - 5 % [place] Erythrocyte distribution width (RBC) [Ratio] 14.2 % 12.1 - 15.2 % [place] Hematocrit (Bld) [Volume fraction] 43.7 % 41 - 53 % [place] Hemoglobin (Bld) [Mass/Vol] 14.9 g/dL 13.5 - 17.5 g/dL [place] Lymphocytes (Bld) [#/Vol] 1.50 10*3/uL [place] Lymphocytes/100 WBC (Bld) 18 % 13 - 44 % [place] MCH (RBC) [Entitic mass] 30.9 pg 26 - 34 pg [place] MCHC (RBC) [Mass/Vol] 34.2 g/dL 31 - 37 g/dL [place] MCV (RBC) [Entitic vol] 90.3 fL 80 - 100 fL [place] Monocytes (Bld) [#/Vol] 0.50 10*3/uL [place] Monocytes/100 WBC (Bld) 6 % 5 - 9 % [place] Platelet mean volume (Bld) [Entitic vol] NOT REPORTED 6 - 12 fL [place] Platelets (Bld) [#/Vol] NOT REPORTED [place] Platelets (Bld) [#/Vol] 289 10*3/uL [place] RBC (Bld) [#/Vol] 4.84 10*6/uL 4.5 - 5.9 m/uL [place] RBC morphology finding Nom (Bld) NOT REPORTED [place] Segmented neutrophils/100 WBC (Bld) 74 % 39 - 75 % [place] Segs Absolute 6.40 [place] WBC (Bld) [#/Vol] 8.5 10*3/uL [place] WBC (Bld) [#/Vol] NOT REPORTED per 100 WBC [place] WBC Morphology NOT REPORTED [place] Comprehensive Metabolic Pane ko 05-20-2020 Albumin [Mass/Vol] 4.4 g/dL 3.5 - 5.2 g/dL [place] Albumin/Globulin [Mass ratio] NOT REPORTED [place] ALP [Catalytic activity/Vol] 135 U/L High 40 - 129 U/L [place] ALT [Catalytic activity/Vol] 36 U/L 5 - 41 U/L [place] Anion gap [Moles/Vol] 10 mmol/L 9 - 17 mmol/L [place] AST [Catalytic activity/Vol] 29 U/L <40 [place] Bilirubin Ql (U) 0.47 mg/dL 0.3 - 1.2 mg/dL [place] Bun/Cre Ratio 15 [place] Calcium [Mass/Vol] 9.1 mg/dL 8.6 - 10. 4 mg/dL [place] Chloride [Moles/Vol] 102 mmol/L 98 - 10 7 mmol/L [place] CO2 [Moles/Vol] 27 mmol/L 20 - 31 mmol/L [place] Creatinine [Mass/Vol] 0.91 mg/dL 0.7 - 1.2 mg/dL [place] GFR >60 >60 mL/min [place] GFR Non- >60 >60 mL/min [place] GFR/1.73 sq M predicted among non-blacks MDRD (S/P/Bld) [Vol rate/Area] [place] Comment on above: Average GFR for 60-6 9 years old: 85 mL/min/1.73sq m Chronic Kidney Disease: <60 mL/min/1.73sq m Kidney failure: <15 mL/min/1.73sq m eGFR calculated using average adult body mass. Additional eGFR calculator available at: http://www.[employer].KLab/multiple_crcl_2012.htm GFR/1.73 sq M predicted among non-blacks MDRD (S/P/Bld) [Vol rate/Area] NOT REPORTED [place] Glucose [Mass/Vol] 121 mg/dL High 70 - 99 mg/dL [place] Interpretation and review of laboratory results Abnormal [place] Potassium [Moles/Vol] 4.2 mmol/L 3.7 - 5.3 mmol/L [place] Protein [Mass/Vol] 7.3 g/dL 6.4 - 8.3 g/dL [place] Sodium [Moles/Vol] 139 mmol/L 135 - 144 mmol/L [place] Urea nitrogen [Mass/Vol] 14 mg/dL 8 - 23 mg/dL [place] Hemoglobin A1Con 05-20-2020 Glucose [Mass/Vol] 134 mg/dL [place] Comment on above: The ADA and AACC rec ommend providing the estimated average glucose result to permit better patient understanding of their HBA1c result. HbA1c (Bld) [Mass fraction] 6.3 % High 4 - 6 % [place] Interpretation and review of laboratory results Abnormal [place] Hepatitis C Antibodyon 05-20 Hepatitis C Ab NONREACTIVE NONREACTIVE [place] Comment on above: The hepatitis C [...] Panelon 05-20-2020 Cholesterol [Mass/Vol] 99 mg/dL <200 [place] Comment on above: Cholesterol Guidelines: <200 Desirable 200-240 Borderline >240 Undesirable Cholesterol in HDL [Mass/Vol] 33 mg/dL Low >40 [place] Comment on above: HDL Guidelines: <40 Undesirable 40-59 Borderline >59 Desirable Cholesterol in LDL [Mass/Vol] 53 mg/dL 0 - 130 mg/dL [place] Comment on above: LDL Guidelines: <100 Desirable 100-129 Near to/above Desirable 130-159 Borderline >159 Undesirable Direct (measured) LDL and calculated LDL are not interchangeable tests. Cholesterol in VLDL [Mass/Vol]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
== END 2023-08-01 11:46 | disposition home or self-care (01) ==
LOC: EC 11:45
PROVIDERS: Visit Provider Podiatrist Foot & Ankle Surgery
DX: M20.22 Hallux rigidus, left foot (principal)
CPT/HCPCS: 73630

== ENCOUNTER 2023-09-12 09:35 | Outpatient (OUT) | payer MEDICARE, OTHER, SELFPAY ==
--- NOTE | 2023-09-12 09:40 | CT_ITS ---
[address] [address] Patient Name: TY RANGEL MRN: [id number] date: 1955 Sex: M Assigned Patient Location: CT Current Patient Location: CT Accession/Order Number: [id number] Exam Date: 09/12/2023 09:45 Report Date: 09/12/2023 12:21 At the request of: BOBO BARTON Procedure: CT foot LT wo con EXAMINATION: CT foot LT wo con HISTORY: 1st Metatarsophalangeal Joint Degenerative Joint Disease COMPARISON: 08/01/2023 plain x-ray TECHNIQUE: Multi-planar CT images were created without IV contrast. Dose reduction techniques were achieved by using automated exposure control and/or adjustment of mA and/or kV according to patient size and/or use of iterative reconstruction technique. FINDINGS: BONES: Stable fusion the first metatarsal-phalangeal joint with a dorsal plate, screws and spacer. Some partial bony bridging is observed. No acute fracture, dislocation or mechanical failure. Moderate to severe diffuse degenerative change with joint space narrowing/collapse, marginal osteophyte formation and subchondral cystic changes. SOFT TISSUES: Negative. No visible soft tissue swelling. EFFUSION: None visible. OTHER: Negative. CT/CT foot LT wo con IMPRESSION: Stable first metatarsal-phalangeal joint fusion with spacer placement. 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
== END 2023-09-12 09:36 | disposition home or self-care (01) ==
LOC: CT 09:35
PROVIDERS: Visit Provider Podiatrist Foot & Ankle Surgery
DX: M19.072 Primary osteoarthritis, left ankle and foot (principal); Z98.1 Arthrodesis status
CPT/HCPCS: 73700

== ENCOUNTER 2023-11-21 10:11 | Outpatient (OUT) | payer MEDICARE, OTHER, SELFPAY ==
--- NOTE | 2023-11-21 | XR_ITS ---
The [address] [address] Patient Name: TY RANGEL MRN: [id number] date: 1955 Sex: M Assigned Patient Location: Current Patient Location: Accession/Order Number: [id number] Exam Date: 11/21/2023 10:11 Report Date: 11/21/2023 12:09 At the request of: BOBO BARTON Procedure: XR foot LT min 3V PROCEDURE: XR foot LT min 3V COMPARISON: 08/01/2023 HISTORY: LEFT FOOT PAIN FINDINGS: BONES:Stable spacer and fusion across the first metatarsal-phalangeal joint. No mechanical failure. There is angulation of the toes at the metatarsal phalangeal joints. Moderate to severe degenerative changes again noted with joint space narrowing marginal osteophyte formation and subchondral cystic changes. SOFT TISSUES:Negative. No visible soft tissue swelling. EFFUSION:None visible. OTHER: Negative. XR/XR foot LT min 3V IMPRESSION: Stable degenerative and postsurgical changes Electronically authenticated by: SOTERO MONTERROSO Date: 11/21/2023 12:09
--- OUTSIDE RECORDS SUMMARY | 2023-11-21 10:22 | XMS_ITS | CCD ---
Author Organization [facility] Care Team Providers Care Pipe Crew Foreman Name Role Phone NO, PHYSICIAN Unavailable Unavailable SECOR, NAYE Unavailable Unavailable SELF, SELF Unavailable Unavailable Clingman, Nathalia A Primary Care Provider Clingman NURSES SUPERINTENDENT - BROWNING PROCESSOR, Nathalia A Primary Care Prov ider Clingman NURSES SUPERINTENDENT - BROWNING PROCESSOR, Nathalia A Primary Care Prov ider Clingman NURSES SUPERINTENDENT - BROWNING PROCESSOR, Nathalia A Primary Care Prov ider Clingman DNP, Nathalia A Primary Care Provider CLINGMAN, NATHALIA A Referring Unavailable CLINGMAN, NATHALIA A Primary Care Unavailable CLINGMAN, NATHALIA A Referring Unavailable CLINGMAN, NATHALIA A Primary Care Unavailable CLINGMAN, NATHALIA A Referring Unavailable CLINGMAN, NATHALIA A Primary Care Unavailable NOVAK, NGHIA Rothman Attending Unavailable CLINGMAN, NATHALIA A Primary Care Unavailable NOVAK, NGHIA A Admitting Unavailable BACK, MYCHAL Admitting Unavailable BACK, MYCHAL Attending Unavailable CLINGMAN, NATHALIA A Primary Care Unavailable NOVAK, NGHIA A Consulting Unavailable BACK, MYCHAL Consulting Unavailable CLINGMAN, NATHALIA A Referring Unavailable CLINGMAN, NATHALIA A Primary Care Unavailable CLINGMAN, NATHALIA A Referring Unavailable CLINGMAN, NATHALIA A Primary Care Unavailable BOBO BARTON Referring Unavailable CLINGMAN, NATHALIA A Primary Care Unavailable CLINGMAN, NATHALIA A Referring Unavailable CLINGMAN, NATHALIA A Primary Care Unavailable JACKIE PAULINO Attending UnavailSANDIE Albert Referring Unavailable Allergies Allergy Classification Reported Allergen(s) Allergy Type Date of Onset Reaction(s) Facility (2 sources) Cephalexin Drug Allergy 02-02-2024 [facility]a [facility]iting [facility] Medications Current Medications Medication Drug Class(es) Dates [...] Start: 04-05-2022 take 1 capsule by mo ut twice daily celecoxib (CELEBREX) 100 MG capsule Take 1 capsule by mouth 2 times daily 180 capsule 1 04/05/2022 Active dextromethorphan hydrobromide 15 mg / guaiFENesin 400 mg / pseudoephedrine hydrochloride 60 mg oral tablet (1 source) alpha-Adrenergic Agonist, Uncompetitive E-wzzedn-J-aspartate Receptor Antagonist, Sigma-1 Agonist Start: 07-28-2021 take 1 capsule by mouth every six hours as needed for cough and congestion, then take 4 capsules by mouth once daily as needed for cough and congestion Lfbvujdgfszqvos-HZ-IY (CAPMIST DM) 60-15-400 MG TABS Indications: Head [...] (TORADOL) injection 30 mg lactobacillus rhamnosus gg [id number] unt oral capsule (1 source) Start: 06-29-2023 [...] % 10 mL injection polyethylene glycol 3350 43294 mg powder for oral solution (1 source) [...] 07-03-2023 06-29-2023 Episodic Diabetes mellitus without complication (2 sources) Impaired fasting glycaemia; Translations: [Prediabetes] Onset: 09-27-2023 Episodic Disorders of lipid metabolism (20 sources) [...] Translations: [Close exposure to COVID-19 virus] Episodic Malaise and fatigue (1 source) Other fatigue; Translations: [Other fatigue] Onset: 09-27-2023 Episodic Nutritional deficiencies (1 source) 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 Basophil 0.02 k/uL Normal 0.00-0.20 [facility] Comment on above: Performed By: #### C HETAL, CP #### [facility] [address] [place] [address] Tool Filer Hand: Shaq Mullen MD #### HSIEH25 #### [facility] [employer] [address] [place] [address] [phone] Tool Filer Hand: He Driscoll MD Abs.Imm.Granulocyte 0.00 k/uL Normal 0.00-0.30 [facility] Comment on above: Performed By: #### C DP, CP #### [facility] [address] [place] [address] Tool Filer Hand: Shaq Mullen MD #### HSIEH25 #### [address] [phone] Tool Filer Hand: He Driscoll MD Abs.Neutrophil (Seg) 5.86 k/uL Normal 2.1-6.5 [facility] Comment on above: Performed By: #### C DP, CP #### [facility] [address] [place] [address] Tool Filer Hand: Shaq Mullen MD #### GLYMG, VD25 #### [address] [phone] Tool Filer Hand: He Driscoll MD Basophils/100 WBC (Bld) 0 % Normal 0-2 [facility] Comment on above: Performed By: #### C DP, CP #### [facility] [address] [place] [address] Tool Filer Hand: Shaq Mullen MD #### KENDALL, VD25 #### [place] [phone] Tool Filer Hand: He Driscoll MD Eosinophils (Bld) [#/Vol] 0.20 10*3/uL Normal 0.00-0.40 [facility] Comment on above: Performed By: #### C DP, CP #### [facility] [address] [place], [place] [phone] Tool Filer Hand: Shaq Mullen MD #### KENDALL, VD25 #### [place] [address] Tool Filer Hand: He Driscoll MD Eosinophils/100 WBC (Bld) 3 % Normal 0-5 [facility] Comment on above: Performed By: #### C DP, CP #### [facility] [address] [place] [address] Tool Filer Hand: Shaq Mullen MD #### GLYHGB, VD25 #### [address] [phone] Tool Filer Hand: He Driscoll MD Erythrocyte distribution width (RBC) [Ratio] 13.1 % Normal 12.1-15.2 [facility] Comment on above: Performed By: #### C DP, CP #### [facility] [address] [place] [address] Tool Filer Hand: Shaq Mullen MD #### GLYHGB, VD25 #### [address] [phone] Tool Filer Hand: He Driscoll MD Hematocrit (Bld) [Volume fraction] 42.8 % Normal 41.0-53.0 [facility] Comment on above: Performed By: #### C DP, CP #### [facility] [address] [place] [address] Tool Filer Hand: Shaq Mullen MD #### GLYHGB, VD25 #### [address] [phone] Tool Filer Hand: He Driscoll MD Hemoglobin (Bld) [Mass/Vol] 14.8 g/dL Normal 13.5-17.5 [facility] Comment on above: Performed By: #### C DP, CP #### [facility] [address] [place], [place] [id number] Tool Filer Hand: Shaq Mullen MD #### GLYHGB, VD25 #### [address] [address] Tool Filer Hand: He Driscoll MD Immature granulocytes/100 WBC (Bld) 0 % Normal 0-5 [facility] Comment on above: Performed By: #### C DP, CP #### [facility] [address] [place] [address] Tool Filer Hand: Shaq Mullen MD #### GLYHGB, VD25 #### [address] [address] Tool Filer Hand: He Driscoll MD Lymphocytes (Bld) [#/Vol] 1.39 10*3/uL Normal 1.00-4.80 [facility] Comment on above: Performed By: #### C DP, CP #### [facility] [address] [place] [address] Tool Filer Hand: Shaq Mullen MD #### GLYHGB, VD25 #### [place] [address] [place], [place] [phone] Tool Filer Hand: He Driscoll MD Lymphocytes/100 WBC (Bld) 18 % Normal 13-44 [facility] Comment on above: Performed By: #### C DP, CP #### [facility] [address] [place] [address] Tool Filer Hand: Shaq Mullen MD #### GLYHGB, VD25 #### [address] [phone] Tool Filer Hand: He Driscoll MD MCH (RBC) [Entitic mass] 30.6 pg Normal 26.0-34.0 [facility] Comment on above: Performed By: #### C DP, CP #### [facility] [address] [place] [address] Tool Filer Hand: Shaq Mullen MD #### GLYHGB, VD25 #### [address] [phone] Tool Filer Hand: He Driscoll MD MCHC (RBC) [Mass/Vol] 34.6 g/dL Normal 31.0-37.0 [facility] Comment on above: Performed By: #### C DP, CP #### [facility] [address] [place] [address] Tool Filer Hand: Shaq Mullen MD #### GLYHGB, VD25 #### [address] [phone] Tool Filer Hand: He Driscoll MD MCV (RBC) [Entitic vol] 88.6 fL Normal 80.0-100.0 [facility] Comment on above: Performed By: #### C DP, CP #### [facility] [address] [place] [address] Tool Filer Hand: Shaq Mullen MD #### GLYHGB, VD25 #### [address] [phone] Tool Filer Hand: He Driscoll MD Monocytes (Bld) [#/Vol] 0.49 10*3/uL Normal 0.00-1.00 [facility] Comment on above: Performed By: #### C DP, CP #### [facility] [address] [place] [phone] Tool Filer Hand: Shaq Mullen MD #### KENDALL, VD25 #### [address] [phone] Tool Filer Hand: He Driscoll MD Monocytes/100 WBC (Bld) 6 % Normal 5-9 [facility] Comment on above: Performed By: #### C DP, CP #### [facility] [address] [place] [address] Tool Filer Hand: Shaq Mullen MD #### GLYMG, VD25 #### [address] [address] Tool Filer Hand: He Driscoll MD Neutrophil (Seg) 73 % Normal 39-75 [facility] Comment on above: Performed By: #### C DP, CP #### [facility] [address] [place] [address] Tool Filer Hand: Shaq Mullen MD #### GLYHGB, VD25 #### [address] [address] Tool Filer Hand: He Driscoll MD Platelet mean volume (Bld) [Entitic vol] 11.0 fL Normal 6.0-12.0 [facility] Comment on above: Performed By: #### C DP, CP #### [facility] [address] [place] [address] Tool Filer Hand: Shaq Mullen MD #### GLYHGB, VD25 #### [place] [address] [place], [place] [phone] Tool Filer Hand: He Driscoll MD Platelets (Bld) [#/Vol] 222 10*3/uL Normal 140-450 [facility] Comment on above: Performed By: #### C DP, CP #### [facility] [address] [place], [place] [phone] Tool Filer Hand: Shaq Mullen MD #### GLYHGB, VD25 #### [address] [phone] Tool Filer Hand: He Driscoll MD RBC (Bld) [#/Vol] 4.83 10*6/uL Normal 4.50-5.90 [facility] Comment on above: Performed By: #### C DP, CP #### [facility] [address] [place], [place] [id number] Tool Filer Hand: Shaq Mullen MD #### GLYHGB, VD25 #### [address] [address] Tool Filer Hand: He Driscoll MD WBC (Bld) [#/Vol] 8.0 10*3/uL Normal 3.5-11.0 [facility] Comment on above: Performed By: #### C DP, CP #### [facility] [address] [place], [place] [id number] Tool Filer Hand: Shaq Mullen MD #### GLYHGB, VD25 #### [address] [address] Tool Filer Hand: He Driscoll MD Comp Metabolic Profon 2023 Albumin [Mass/Vol] 3.9 g/dL Normal 3.5-5.2 [facility] Comment on above: Performed By: #### C DP, CP #### [facility] [address] [place], [place] 2383690 Tool Filer Hand: Shaq Mullen MD #### KENDALL, VD25 #### [address] [id number] Tool Filer Hand: He Driscoll MD Alkaline Phos 105 U/L Normal 40-129 [facility] Comment on above: Performed By: #### C DP, CP #### [facility] [address] [place], [place] [phone] Tool Filer Hand: Shaq Mullen MD #### KENDALL, VD25 #### [address] [phone] Tool Filer Hand: He Driscoll MD ALT [Catalytic activity/Vol] 24 U/L Normal 5-41 [facility] Comment on above: Performed By: #### C DP, CP #### [facility] [address] [place], [place] [phone] Tool Filer Hand: Shaq Mullen MD #### KENDALL, VD25 #### [address] [address] Tool Filer Hand: He Driscoll MD Anion gap [Moles/Vol] 10 mmol/L Normal 9-17 [facility] Comment on above: Performed By: #### C DP, CP #### [facility] [address] [place], [place] [phone] Tool Filer Hand: Shaq Mullen MD #### GLYHGB, VD25 #### [address] [address] Tool Filer Hand: He Driscoll MD AST [Catalytic activity/Vol] 22 U/L Normal <40 [facility] Comment on above: Performed By: #### C DP, CP #### [facility] [address] [place], [place] [phone] Tool Filer Hand: Shaq Mullen MD #### GLYHGB, VD25 #### [facility] [address] [place], [place] [phone] Tool Filer Hand: He Driscoll MD Bilirubin [Mass/Vol] 0.5 mg/dL Normal 0.3-1.2 [facility] Comment on above: Performed By: #### C DP, CP #### [facility] [address] [place], [place] [phone] Tool Filer Hand: Shaq Mullen MD #### GLYHGB, VD25 #### [address] [phone] Tool Filer Hand: He Driscoll MD BUN/CRE Ratio 19 Normal 9-20 [facility] Comment on above: Performed By: #### C DP, CP #### [facility] [address] [place], [place] 7137890 Tool Filer Hand: Shaq uMllen MD #### GLYHGB, VD25 #### [facility] [address] [place] [address] Tool Filer Hand: He Driscoll MD Calcium [Mass/Vol] 9.3 mg/dL Normal 8.6-10.4 [facility] Comment on above: Performed By: #### C DP, CP #### [facility] [address] [place], [place] [phone] Tool Filer Hand: Shaq Mullen MD #### GLYHGB, VD25 #### [facility] [address] [place] [address] Tool Filer Hand: He Driscoll MD Chloride [Moles/Vol] 104 mmol/L Normal 98-107 [facility] Comment on above: Performed By: #### C DP, CP #### [facility] [address] [place], [place] 0400590 Tool Filer Hand: Shaq Mullen MD #### GLYHGB, VD25 #### [facility] [address] [place], [place] 0744008 Tool Filer Hand: He Driscoll MD CO2 [Moles/Vol] 26 mmol/L Normal 20-31 [facility] Comment on above: Performed By: #### C DP, CP #### [facility] [address] [place], [place] 6775190 Tool Filer Hand: Shaq Mullen MD #### GLYHGB, VD25 #### [facility] [address] [place], [place] 5903008 Tool Filer Hand: He Driscoll MD Creatinine [Mass/Vol] 0.8 mg/dL Normal 0.7-1.2 [facility] Comment on above: Performed By: #### C DP, CP #### [facility] [address] [place], [place] 3422790 Tool Filer Hand: Shaq Mullen MD #### GLYHGB, VD25 #### [facility] [address] [place], [place] [phone] Tool Filer Hand: He Driscoll MD GFR/1.73 sq M.predicted among non-blacks MDRD (S/P/Bld) [Vol rate/Area] mL/min/{1.73_m2} Normal >60 [facility] Comment on above: Result Comment: These [...] tubular secretion. Performed By: #### C DP, CP #### [facility] [address] [place], [place] [phone] Tool Filer Hand: Shaq Mullen MD #### GLYHGB, VD25 #### [facility] [address] [place], [place] 2802508 Tool Filer Hand: He Driscoll MD Glucose [Mass/Vol] 120 mg/dL High 70-99 [facility] Comment on above: Performed By: #### C DP, CP #### [facility] [address] [place], [place] 2665990 Tool Filer Hand: Shaq Mullen MD #### GLYHGB, VD25 #### [place] [address] [place], [place] 0320008 Tool Filer Hand: He Driscoll MD Potassium [Moles/Vol] 4.1 mmol/L Normal 3.7-5.3 [facility] Comment on above: Performed By: #### C DP, CP #### [facility] [address] [place], [place] 6413590 Tool Filer Hand: Shaq Mullen MD #### GLYHGB, VD25 #### [place] [address] [place], [place] 3390108 Tool Filer Hand: He Driscoll MD Protein [Mass/Vol] 7.1 g/dL Normal 6.4-8.3 [facility] Comment on above: Performed By: #### C DP, CP #### [facility] [address] [place], [place] 4397090 Tool Filer Hand: Shaq Mullen MD #### GLYHGB, VD25 #### [place] [address] [place], [place] [phone] Tool Filer Hand: He Driscoll MD Sodium [Moles/Vol] 140 mmol/L Normal 135-144 [facility] Comment on above: Performed By: #### C DP, CP #### [facility] [address] [place], [place] [phone] Tool Filer Hand: Shaq Mullen MD #### GLYHGB, VD25 #### [facility] [address] [place] [address] Tool Filer Hand: He Driscoll MD Urea nitrogen [Mass/Vol] 15 mg/dL Normal 8-23 [facility] Comment on above: Performed By: #### C DP, CP #### [facility] [address] [place], [place] [phone] Tool Filer Hand: Shaq Mullen MD #### GLYHGB, VD25 #### [facility] [address] [place] [address] Tool Filer Hand: He Driscoll MD Hemoglobin A1Con 09-27-2023 Glucose [Mass/Vol] 123 mg/dL Normal [facility] Comment on above: Result Comment: The ADA and AACC recommend providing the estimated average glucose result to permit better patient understanding of their HBA1c result. Performed By: #### C DP, CP #### [facility] [address] [place], [place] 3184290 Tool Filer Hand: Shaq Mullen MD #### GLYHGB, VD25 #### [facility] [address] [place] [address] Tool Filer Hand: He Driscoll MD HbA1c (Bld) [Mass fraction] 5.9 % Normal 4.0-6.0 [facility] Comment on above: Performed By: #### C DP, CP #### [facility] [address] [place], [place] [phone] Tool Filer Hand: Shaq Mullen MD #### GLYHGB, VD25 #### [facility] [address] [place] [address] Tool Filer Hand: He Driscoll MD Vitamin D 25 OHon 09-27-2023 Vitamin D 25 [place] 63.1 ng/mL Normal 30.0-100.0 [facility] Comment on above: Result Comment: Reference Range: Vitamin D status Range Deficiency <20 ng/mL Mild Deficiency 20-30 ng/mL Sufficiency 30-100 ng/mL Toxicity >100 ng/mL Performed By: #### C HETAL, CP #### [facility] [address] [place], [place] 6579290 Tool Filer Hand: Shaq Mullen MD #### HSIEH25 #### [facility] [address] [place], [place] [phone] Tool Filer Hand: He Driscoll MD EKG Rhythm Stripon [facility] Hepatic Function Panelon Albumin [Mass/Vol] 3.8 g/dL 3.5 - 5.2 g/dL [facility] ALP [Catalytic activity/Vol] 188 U/L High 40 - 129 U/L [facility] ALT [Catalytic activity/Vol] 129 U/L High 5 - 41 U/L [facility] AST [Catalytic activity/Vol] 48 U/L High NINF - 40 U/L [facility] Bilirubin [Mass/Vol] 0.4 mg/dL 0.3 - 1 .2 mg/dL [facility] Bilirubin.direct [Mass/Vol] mg/dL NINF - 0.3 mg/dL [facility] Bilirubin.indirect [Mass/Vol] Can not be calculated 0.0 - 1.0 mg/dL [facility] Interpretation and review of laboratory results Abnormal [facility] Protein [Mass/Vol] 7.0 g/dL 6.4 - 8.3 g/dL [facility] Liver Profileon 07-03-2023 Albumin [Mass/Vol] 3.8 g/dL Normal 3.5-5.2 [facility] Comment on above: Performed By: #### C HETAL, CP #### [facility] [address] [place] [address] Tool Filer Hand: Shaq Mullen MD #### GLYHGB, VD25 #### [facility] [address] [place] [address] Tool Filer Hand: He Driscoll MD Alkaline Phos 188 U/L High 40-129 [facility] Comment on above: Performed By: #### C DP, CP #### [facility] [address] [place] [address] Tool Filer Hand: Shaq Mullen MD #### KENDALL, VD25 #### [facility] [address] [place] [address] Tool Filer Hand: He Driscoll MD ALT [Catalytic activity/Vol] 129 U/L High 5-41 [facility] Comment on above: Performed By: #### C DP, CP #### [facility] [address] [place] [address] Tool Filer Hand: Shaq Mullen MD #### KENDALL, CHON25 #### [address] [address] Tool Filer Hand: He Driscoll MD AST [Catalytic activity/Vol] 48 U/L High <40 [facility] Comment on above: Performed By: #### C DP, CP #### [facility] [address] [place] [address] Tool Filer Hand: Shaq Mullen MD #### GLYCOURTNEYB, VD25 #### [facility] [address] [place] [address] Tool Filer Hand: He Driscoll MD Bilirubin [Mass/Vol] 0.4 mg/dL Normal 0.3-1.2 [facility] Comment on above: Performed By: #### C DP, CP #### [facility] [address] [place] [address] Tool Filer Hand: Shaq Mullen MD #### KENDALL, VD25 #### [address] [phone] Tool Filer Hand: He Driscoll MD Bilirubin, Indirect Can not be calculated Normal 0.0-1.0 [facility] Comment on above: Performed By: #### C DP, CP #### [facility] [address] [place], [place] [phone] Tool Filer Hand: Shaq Mullen MD #### GLYMG, VD25 #### [facility] [employer] [address] [place], [place] [phone] Tool Filer Hand: He Driscoll MD Bilirubin.indirect [Mass/Vol] mg/dL Normal <0.3 [facility] Comment on above: Performed By: #### C DP, CP #### [facility] [address] [place], [place] 2752490 Tool Filer Hand: Shaq Mullen MD #### KENDALL, VD25 #### [facility] [address] [place], [place] [phone] Tool Filer Hand: eH Driscoll MD Protein [Mass/Vol] 7.0 g/dL Normal 6.4-8.3 [facility] Comment on above: Performed By: #### C DP, CP #### [facility] [address] [place], [place] [phone] Tool Filer Hand: Shaq Mullen MD #### KENDALL, VD25 #### [facility] [address] [place] [address] [phone] Tool Filer Hand: He Driscoll MD Surgical Pathology Reporton 07-03-2023 Surgical Pathology Report (NOTE) Path Number: [id number] -- Diagnosis -- GALLBLADDER, CHOLECYSTECTOMY: -CHRONIC CHOLECYSTITIS WITH CHOLELITHIASIS. Shaq Mullen M.D. Electronically Signed Out 07/05/2023 Clinical Information Pre-Op Diagnosis: CHOLELITHIASIS AND ACUTE CHOLECYSTITIS WITHOUT OBSTRUCTION Operative Findings: GALLBLADDER Operation Performed: CHOLECYSTECTOMY LAPAROSCOPIC kb Source of Specimen A: GALLBLADDER Gross Description TY RODRIGUEZ, GALLBLADDER Received in formalin is an 8.0 x [...] lesions or periductal lymph nodes are identified. Clinical Data Coordinator sections 1c. tm Lala Betty/linda2:07/04/2023 Microscopic Description Microscopic examination performed. Processing Lab: [address] [id number] Interpretation Performed at [address] [phone] SURGICAL PATHOLOGY CONSULTATION Patient Name: TY RODRIGUEZ [facility] Rec: [id number] [facility] ANATOMIC PATHOLOGY [address] [place] [phone] Normal [facility] Comp Metabolic Pr/rfx MGon 0 07-01-2023 Albumin [Mass/Vol] 3.4 g/dL Low 3.5-5.2 [facility] Comment on above: Performed By: #### C HETAL, CP #### [facility] [address] [place] [address] Tool Filer Hand: Shaq Mullen MD #### HSIEH25 #### [facility] [employer] [address] [place] [address] [phone] Tool Filer Hand: He Driscoll MD Alkaline Phos 200 U/L High 40-129 [facility] Comment on above: Performed By: #### C HETAL, CP #### [facility] [address] [place], [place] [phone] Tool Filer Hand: Shaq Mullen MD #### HSIEH25 #### [address] [phone] Tool Filer Hand: He Driscoll MD ALT [Catalytic activity/Vol] 205 U/L High 5-41 [facility] Comment on above: Performed By: #### C DP, CP #### [facility] [address] [place], [place] [phone] Tool Filer Hand: Shaq Mullen MD #### GLYHGB, VD25 #### [address] [phone] Tool Filer Hand: He Driscoll MD Anion gap [Moles/Vol] 12 mmol/L Normal 9-17 [facility] Comment on above: Performed By: #### C DP, CP #### [facility] [address] [place], [place] [phone] Tool Filer Hand: Shaq Mullen MD #### KENDALL, VD25 #### [address] [phone] Tool Filer Hand: He Driscoll MD AST [Catalytic activity/Vol] 70 U/L High <40 [facility] Comment on above: Performed By: #### C HETAL, CP #### [facility] [address] [place], [place] [id number] Tool Filer Hand: Shaq Mullen MD #### GLYHGB, VD25 #### [address] [id number] Tool Filer Hand: He Driscoll MD Bilirubin [Mass/Vol] 0.5 mg/dL Normal 0.3-1.2 [facility] Comment on above: Performed By: #### C DP, CP #### [facility] [address] [place], [place] [id number] Tool Filer Hand: Shaq Mullen MD #### GLYHGB, VD25 #### [address] [phone] Tool Filer Hand: He Driscoll MD BUN/CRE Ratio 16 Normal 9-20 [facility] Comment on above: Performed By: #### C DP, CP #### [facility] [address] [place], [place] 6671690 Tool Filer Hand: Shaq Mullen MD #### GLYHGB, VD25 #### [address] [place], [place] [phone] Tool Filer Hand: He Driscoll MD Calcium [Mass/Vol] 8.9 mg/dL Normal 8.6-10.4 [facility] Comment on above: Performed By: #### C DP, CP #### [facility] [address] [place], [place] [id number] Tool Filer Hand: Shaq Mullen MD #### OLAYINKAB, VD25 #### [address] [id number] Tool Filer Hand: He Driscoll MD Chloride [Moles/Vol] 107 mmol/L Normal 98-107 [facility] Comment on above: Performed By: #### C DP, CP #### [facility] [address] [place], [place] [phone] Tool Filer Hand: Shaq Mullen MD #### GLYHGB, VD25 #### [address] [address] Tool Filer Hand: He Driscoll MD CO2 [Moles/Vol] 23 mmol/L Normal 20-31 [facility] Comment on above: Performed By: #### C DP, CP #### [facility] [address] [place], [place] 4227390 Tool Filer Hand: Shaq Mullen MD #### GLYHGB, VD25 #### [address] [address] Tool Filer Hand: He Driscoll MD Creatinine [Mass/Vol] 0.8 mg/dL Normal 0.7-1.2 [facility] Comment on above: Performed By: #### C DP, CP #### [facility] [address] [place], [place] 1119290 Tool Filer Hand: Shaq Mullen MD #### KENDALL VD25 #### [address] [id number] Tool Filer Hand: He Driscoll MD GFR/1.73 sq M.predicted among non-blacks MDRD (S/P/Bld) [Vol rate/Area] mL/min/{1.73_m2} Normal >60 [facility] Comment on above: Result Comment: These [...] tubular secretion. Performed By: #### C DP, CP #### [facility] [address] [place], [place] [phone] Tool Filer Hand: Shaq Mullen MD #### HSIEH25 #### [address] [id number] Tool Filer Hand: He Driscoll MD Glucose [Mass/Vol] 107 mg/dL High 70-99 [facility] Comment on above: Performed By: #### C DP, CP #### [facility] [address] [place], [place] 6362390 Tool Filer Hand: Shaq Mullen MD #### KENDALL VD25 #### [address] [phone] Tool Filer Hand: He Driscoll MD Potassium [Moles/Vol] 3.8 mmol/L Normal 3.7-5.3 [facility] Comment on above: Performed By: #### C DP, CP #### [facility] [address] [place] [address] Tool Filer Hand: Shaq Mullen MD #### KENDALL VD25 #### [address] [place], [place] 7095408 Tool Filer Hand: He Driscoll MD Protein [Mass/Vol] 6.5 g/dL Normal 6.4-8.3 [facility] Comment on above: Performed By: #### C DP, CP #### [facility] [address] [place], [place] 9191790 Tool Filer Hand: Shaq Mullen MD #### HSIEH25 #### [address] [place], [place] 5672608 Tool Filer Hand: He Driscoll MD Sodium [Moles/Vol] 142 mmol/L Normal 135-144 [facility] Comment on above: Performed By: #### C HETAL, CP #### [facility] [address] [place] [address] Tool Filer Hand: Shaq Mullen MD #### HSIEH25 #### [address] [place], [place] 4024108 Tool Filer Hand: He Driscoll MD Urea nitrogen [Mass/Vol] 13 mg/dL Normal 8-23 [facility] Comment on above: Performed By: #### C HETAL, CP #### [facility] [address] [place], [place] 7036490 Tool Filer Hand: Shaq Mullen MD #### GLYMG, VD25 #### [address] [place], [place] 6904908 Tool Filer Hand: He Driscoll MD Comprehensive Metabolic Pane l w/ Reflex to MGon 07-01-2023 Albumin [Mass/Vol] 3.4 g/dL Low 3.5 - 5.2 g/dL [facility] ALP [Catalytic activity/Vol] 200 U/L High 40 - 129 U/L [facility] ALT [Catalytic activity/Vol] 205 U/L High 5 - 41 U/L [facility] Anion gap [Moles/Vol] 12 mmol/L 9 - 17 mmol/L [facility] AST [Catalytic activity/Vol] 70 U/L High NINF - 40 U/L [facility] Bilirubin [Mass/Vol] 0.5 mg/dL 0.3 - 1 .2 mg/dL [facility] Calcium [Mass/Vol] 8.9 mg/dL 8.6 - 10. 4 mg/dL [facility] Chloride [Moles/Vol] 107 mmol/L 98 - 10 7 mmol/L [facility] CO2 [Moles/Vol] 23 mmol/L 20 - 31 mmol/L [facility] Creatinine [Mass/Vol] 0.8 mg/dL 0.7 - 1.2 mg/dL [facility] GFR/1.73 sq M.predicted MDRD (S/P/Bld) [Vol rate/Area] - [facility] Comment on above: These results are not [...] 107 mg/dL High 70 - 99 mg/dL [facility] Interpretation and review of laboratory results Abnormal [facility] Potassium [Moles/Vol] 3.8 mmol/L 3.7 - 5.3 mmol/L [facility] Protein [Mass/Vol] 6.5 g/dL 6.4 - 8.3 g/dL [facility] Sodium [Moles/Vol] 142 mmol/L 135 - 144 mmol/L [facility] Urea nitrogen [Mass/Vol] 13 mg/dL 8 - 23 mg/dL [facility] Urea nitrogen/Creatinine [Mass ratio] 16 mg/mg 9 - 20 [facility] EKG Rhythm Stripon [facility] Lipaseon 07-01-2023 Lipase [Catalytic activity/Vol] 32 U/L Normal 13-60 [facility] Comment on above: Performed By: #### C DP, CP #### [facility] [address] [place] [address] Tool Filer Hand: Shaq Mullen MD #### GLYHGB, VD25 #### [facility] [employer] [address] [place] [address] Tool Filer Hand: He Driscoll MD Lipase [Catalytic activity/Vol] 32 U/L 13 - 60 U/L [facility] No Panel Informationon 07-01 [facility] CBC with Auto Differentialon 06-30-2023 Basophils (Bld) [#/Vol] 0.02 10*3/uL [facility] Basophils/100 WBC (Bld) 0 % 0 - 2 % [facility] Eosinophils (Bld) [#/Vol] 0.17 10*3/uL [facility] Eosinophils/100 WBC (Bld) 2 % 0 - 5 % [facility] Erythrocyte distribution width (RBC) [Ratio] 13.0 % 12.1 - 15.2 % [facility] Hematocrit (Bld) [Volume fraction] 40.1 % Low 41.0 - 53.0 % [facility] Hemoglobin (Bld) [Mass/Vol] 13.5 g/dL 13.5 - 17.5 g/dL [facility] Immature granulocytes (Bld) [#/Vol] 0.01 10*3/uL [facility] Immature granulocytes/100 WBC (Bld) 0 % 0 - 5 % [facility] Interpretation and review of laboratory results Abnormal [facility] Lymphocytes/100 WBC (Bld) 21 % 13 - 44 % [facility] Lymphocytes/100 WBC (Bld) 1.74 % [facility] MCH (RBC) [Entitic mass] 30.6 pg 26.0 - 34.0 pg [facility] MCHC (RBC) [Mass/Vol] 33.7 g/dL 31.0 - 37.0 g/dL [facility] MCV (RBC) [Entitic vol] 90.9 fL 80.0 - 100.0 fL [facility] Monocytes/100 WBC (Bld) 6 % 5 - 9 % [facility] Monocytes/100 WBC (Bld) 0.49 % [facility] Neutrophils/100 WBC (Bld) 71 % 39 - 75 % [facility] Platelet mean volume (Bld) [Entitic vol] 10.9 fL 6.0 - 12.0 fL [facility] Platelets (Bld) [#/Vol] 289 10*3/uL [facility] RBC (Bld) [#/Vol] 4.41 10*6/uL Low 4.50 - 5.9 0 m/uL [facility] Segmented neutrophils/100 WBC (Bld) 6.03 % [facility] WBC other (Bld) [#/Vol] 8.5 [facility] CBC with Diffon 06-30-2023 Abs. Basophil 0.02 k/uL Normal 0.00-0.20 [facility] Comment on above: Performed By: #### C DP, CP #### [facility] [address] [place] [address] Tool Filer Hand: Shaq Mullen MD #### [id number] #### [facility] [employer] [address] [place] [address] Tool Filer Hand: He Driscoll MD Abs.Imm.Granulocyte 0.01 k/uL Normal 0.00-0.30 [facility] Comment on above: Performed By: #### C DP, CP #### [facility] [address] [place] [address] Tool Filer Hand: Shaq Mullen MD #### GLYHGB, VD25 #### [facility] [address] [place], [place] [phone] Tool Filer Hand: He Driscoll MD Abs.Neutrophil (Seg) 6.03 k/uL Normal 2.1-6.5 [facility] Comment on above: Performed By: #### C DP, CP #### [facility] [address] [place], [place] [phone] Tool Filer Hand: Shaq Mullen MD #### GLYHGB, VD25 #### [address] [place], [place] [phone] Tool Filer Hand: He Driscoll MD Basophils/100 WBC (Bld) 0 % Normal 0-2 [facility] Comment on above: Performed By: #### C DP, CP #### [facility] [address] [place], [place] 1248990 Tool Filer Hand: Shaq Mullen MD #### GLYHGB, VD25 #### [address] [place], [place] 9392308 Tool Filer Hand: He Driscoll MD Eosinophils (Bld) [#/Vol] 0.17 10*3/uL Normal 0.00-0.40 [facility] Comment on above: Performed By: #### C DP, CP #### [facility] [address] [place], [place] 1732390 Tool Filer Hand: Shaq Mullen MD #### GLYHGB, VD25 #### [facility] [address] [place], [place] 9431208 Tool Filer Hand: He Driscoll MD Eosinophils/100 WBC (Bld) 2 % Normal 0-5 [facility] Comment on above: Performed By: #### C DP, CP #### [facility] [address] [place], [place] 8701290 Tool Filer Hand: Shaq Mullen MD #### GLYHGB, VD25 #### [address] [place], [place] 2924708 Tool Filer Hand: He Driscoll MD Erythrocyte distribution width (RBC) [Ratio] 13.0 % Normal 12.1-15.2 [facility] Comment on above: Performed By: #### C DP, CP #### [facility] [address] [place], [place] 3372390 Tool Filer Hand: Shaq Mullen MD #### GLYHGB, VD25 #### [address] [place], [place] 2031308 Tool Filer Hand: He Driscoll MD Hematocrit (Bld) [Volume fraction] 40.1 % Low 41.0-53.0 [facility] Comment on above: Performed By: #### C DP, CP #### [facility] [address] [place], [place] 7755990 Tool Filer Hand: Shaq Mullen MD #### GLYMG, VD25 #### [address] [place], [place] 2175008 Tool Filer Hand: He Driscoll MD Hemoglobin (Bld) [Mass/Vol] 13.5 g/dL Normal 13.5-17.5 [facility] Comment on above: Performed By: #### C DP, CP #### [facility] [address] [place], [place] 8303890 Tool Filer Hand: Shaq Mullen MD #### GLYHGB, VD25 #### [address] [place], [place] 0722808 Tool Filer Hand: He Driscoll MD Immature granulocytes/100 WBC (Bld) 0 % Normal 0-5 [facility] Comment on above: Performed By: #### C DP, CP #### [facility] [address] [place], [place] 8276190 Tool Filer Hand: Shaq Mullen MD #### GLYHGB, VD25 #### [address] [place], [place] 1868108 Tool Filer Hand: He Driscoll MD Lymphocytes (Bld) [#/Vol] 1.74 10*3/uL Normal 1.00-4.80 [facility] Comment on above: Performed By: #### C DP, CP #### [facility] [address] [place] [address] Tool Filer Hand: Shaq Mullen MD #### GLYCOURTNEYB, VD25 #### [address] [place], [place] 2190908 Tool Filer Hand: He Driscoll MD Lymphocytes/100 WBC (Bld) 21 % Normal 13-44 [facility] Comment on above: Performed By: #### C DP, CP #### [facility] [address] [place] [address] Tool Filer Hand: Shaq Mullen MD #### KENDALL, CHON25 #### [address] [phone] Tool Filer Hand: He Driscoll MD MCH (RBC) [Entitic mass] 30.6 pg Normal 26.0-34.0 [facility] Comment on above: Performed By: #### C DP, CP #### [facility] [address] [place] [address] Tool Filer Hand: Shaq Mullen MD #### GLYMG, VD25 #### [facility] [address] [place], [place] 2245808 Tool Filer Hand: He Driscoll MD MCHC (RBC) [Mass/Vol] 33.7 g/dL Normal 31.0-37.0 [facility] Comment on above: Performed By: #### C DP, CP #### [facility] [address] [place] [address] Tool Filer Hand: Shaq Mullen MD #### GLYHGB, VD25 #### [address] [place] [address] Tool Filer Hand: He Driscoll MD MCV (RBC) [Entitic vol] 90.9 fL Normal 80.0-100.0 [facility] Comment on above: Performed By: #### C DP, CP #### [facility] [address] [place], [place] 1025390 Tool Filer Hand: Shaq Mullen MD #### GLYHGB, VD25 #### [address] [address] Tool Filer Hand: He Driscoll MD Monocytes (Bld) [#/Vol] 0.49 10*3/uL Normal 0.00-1.00 [facility] Comment on above: Performed By: #### C DP, CP #### [facility] [address] [place] [address] Tool Filer Hand: Shaq Mullen MD #### GLYHGB, VD25 #### [address] [address] Tool Filer Hand: He Driscoll MD Monocytes/100 WBC (Bld) 6 % Normal 5-9 [facility] Comment on above: Performed By: #### C DP, CP #### [facility] [address] [place], [place] 2746390 Tool Filer Hand: Shaq Mullen MD #### GLYHGB, VD25 #### [address] [address] Tool Filer Hand: He Driscoll MD Neutrophil (Seg) 71 % Normal 39-75 [facility] Comment on above: Performed By: #### C DP, CP #### [facility] [address] [place] [address] Tool Filer Hand: Shaq Mullen MD #### GLYHGB, VD25 #### [address] [place] [place], [place] 5071708 Tool Filer Hand: He Driscoll MD Platelet mean volume (Bld) [Entitic vol] 10.9 fL Normal 6.0-12.0 [facility] Comment on above: Performed By: #### C DP, CP #### [facility] [address] [place], [place] 4114190 Tool Filer Hand: Shaq Mullen MD #### GLYMG, VD25 #### [address] [place], [place] 5120908 Tool Filer Hand: He Driscoll MD Platelets (Bld) [#/Vol] 289 10*3/uL Normal 140-450 [facility] Comment on above: Performed By: #### C DP, CP #### [facility] [address] [place] [address] Tool Filer Hand: Shaq Mullen MD #### KENDALL, CHON25 #### [address] [phone] Tool Filer Hand: He Driscoll MD RBC (Bld) [#/Vol] 4.41 10*6/uL Low 4.50-5.90 [facility] Comment on above: Performed By: #### C DP, CP #### [facility] [address] [place], [place] 9378090 Tool Filer Hand: Shaq Mullen MD #### GLYCOURTNEYB, VD25 #### [address] [id number] Tool Filer Hand: He Driscoll MD WBC (Bld) [#/Vol] 8.5 10*3/uL Normal 3.5-11.0 [facility] Comment on above: Performed By: #### C DP, CP #### [facility] [address] [place] [address] Tool Filer Hand: Shaq Mullen MD #### GLYHGB, VD25 #### [address] [place] [address] Tool Filer Hand: He Driscoll MD Comp Metabolic Pr/rfx MGon 0 - Albumin [Mass/Vol] 3.4 g/dL Low 3.5-5.2 [facility] Comment on above: Performed By: #### C DP, CP #### [facility] [address] [place] [address] Tool Filer Hand: Shaq Mullen MD #### GLYHGB, VD25 #### [address] [address] Tool Filer Hand: He Driscoll MD Alkaline Phos 249 U/L High 40-129 [facility] Comment on above: Performed By: #### C DP, CP #### [facility] [address] [place] [phone] ( Tool Filer Hand: Shaq Mullen MD #### GLYHGB, VD25 #### [address] [address] Tool Filer Hand: He Driscoll MD ALT [Catalytic activity/Vol] 286 U/L High 5-41 [facility] Comment on above: Performed By: #### C DP, CP #### [facility] [address] [place] [address] Tool Filer Hand: Shaq Mullen MD #### GLYHGB, VD25 #### [address] [phone] Tool Filer Hand: He Driscoll MD Anion gap [Moles/Vol] 16 mmol/L Normal 9-17 [facility] Comment on above: Performed By: #### C DP, CP #### [facility] [address] [place] [address] Tool Filer Hand: Shaq Mullen MD #### GLYHGB, VD25 #### [facility] [address] [place] [address] Tool Filer Hand: He Driscoll MD AST [Catalytic activity/Vol] 151 U/L High <40 [facility] Comment on above: Performed By: #### C DP, CP #### [facility] [address] [place], [place] 0844690 Tool Filer Hand: Shaq Mullen MD #### GLYHGB, VD25 #### [facility] [address] [place] [address] Tool Filer Hand: He Driscoll MD Bilirubin [Mass/Vol] 0.6 mg/dL Normal 0.3-1.2 [facility] Comment on above: Performed By: #### C DP, CP #### [facility] [address] [place], [place] 0861190 Tool Filer Hand: Shaq Mullen MD #### GLYHGB, VD25 #### [facility] [address] [place] [address] Tool Filer Hand: He Driscoll MD BUN/CRE Ratio 19 Normal 9-20 [facility] Comment on above: Performed By: #### C DP, CP #### [facility] [address] [place], [place] 0220490 Tool Filer Hand: Shaq Mullen MD #### GLYHGB, VD25 #### [facility] [address] [place] [address] Tool Filer Hand: He Driscoll MD Calcium [Mass/Vol] 9.2 mg/dL Normal 8.6-10.4 [facility] Comment on above: Performed By: #### C DP, CP #### [facility] [address] [place] [address] Tool Filer Hand: Shaq Mullen MD #### GLYHGB, VD25 #### [address] [place], [place] 6735208 Tool Filer Hand: He Driscoll MD Chloride [Moles/Vol] 104 mmol/L Normal 98-107 [facility] Comment on above: Performed By: #### C DP, CP #### [facility] [address] [place], [place] 4776790 Tool Filer Hand: Shaq Mullen MD #### GLYHGB, VD25 #### [facility] [address] [place] [address] Tool Filer Hand: He Driscoll MD CO2 [Moles/Vol] 20 mmol/L Normal 20-31 [facility] Comment on above: Performed By: #### C DP, CP #### [facility] [address] [place], [place] 3846290 Tool Filer Hand: Shaq Mullen MD #### GLYHGB, VD25 #### [facility] [address] [place] [address] Tool Filer Hand: He Driscoll MD Creatinine [Mass/Vol] 0.9 mg/dL Normal 0.7-1.2 [facility] Comment on above: Performed By: #### C DP, CP #### [facility] [address] [place], [place] 5924090 Tool Filer Hand: Shaq Mullen MD #### GLYHGB, VD25 #### [facility] [address] [place] [address] Tool Filer Hand: He Driscoll MD GFR/1.73 sq M.predicted among non-blacks MDRD (S/P/Bld) [Vol rate/Area] mL/min/{1.73_m2} Normal >60 [facility] Comment on above: Result Comment: These [...] tubular secretion. Performed By: #### C DP, CP #### [facility] [address] [place], [place] [id number] Tool Filer Hand: Shaq Mullen MD #### GLYHGB, VD25 #### [address] 2007808 Tool Filer Hand: He Driscoll MD Glucose [Mass/Vol] 97 mg/dL Normal 70-99 [facility] Comment on above: Performed By: #### C DP, CP #### [facility] [address] [place], [place] 3393890 Tool Filer Hand: Shaq Mullen MD #### GLYHGKotsas, VD25 #### [address] [phone] Tool Filer Hand: eH Driscoll MD Potassium [Moles/Vol] 3.6 mmol/L Low 3.7-5.3 [facility] Comment on above: Performed By: #### C DP, CP #### [facility] [address] [place], [place] 1388890 Tool Filer Hand: Shaq Mullen MD #### GLYHGB, VD25 #### [address] [address] Tool Filer Hand: He Driscoll MD Protein [Mass/Vol] 6.6 g/dL Normal 6.4-8.3 [facility] Comment on above: Performed By: #### C DP, CP #### [facility] [address] [place], [place] [phone] Tool Filer Hand: Shaq Mullen MD #### GLYHGB, VD25 #### [address] [address] Tool Filer Hand: He Driscoll MD Sodium [Moles/Vol] 140 mmol/L Normal 135-144 [facility] Comment on above: Performed By: #### C DP, CP #### [facility] [address] [place] [address] Tool Filer Hand: Shaq Mullen MD #### GLYHGB, VD25 #### [facility] [address] [place], [place] 2106108 Tool Filer Hand: He Driscoll MD Urea nitrogen [Mass/Vol] 17 mg/dL Normal 8-23 [facility] Comment on above: Performed By: #### C DP, CP #### [facility] [address] [place] [address] Tool Filer Hand: Shaq Mullen MD #### GLYHGB, VD25 #### [facility] [address] [place] [address] Tool Filer Hand: He Driscoll MD Comprehensive Metabolic Pane l w/ Reflex to MGon 06-30-2023 Albumin [Mass/Vol] 3.4 g/dL Low 3.5 - 5.2 g/dL [facility] ALP [Catalytic activity/Vol] 249 U/L High 40 - 129 U/L [facility] ALT [Catalytic activity/Vol] 286 U/L High 5 - 41 U/L [facility] Anion gap [Moles/Vol] 16 mmol/L 9 - 17 mmol/L [facility] AST [Catalytic activity/Vol] 151 U/L High NINF - 40 U/L [facility] Bilirubin [Mass/Vol] 0.6 mg/dL 0.3 - 1 .2 mg/dL [facility] Calcium [Mass/Vol] 9.2 mg/dL 8.6 - 10. 4 mg/dL [facility] Chloride [Moles/Vol] 104 mmol/L 98 - 10 7 mmol/L [facility] CO2 [Moles/Vol] 20 mmol/L 20 - 31 mmol/L [facility] Creatinine [Mass/Vol] 0.9 mg/dL 0.7 - 1.2 mg/dL [facility] GFR/1.73 sq M.predicted MDRD (S/P/Bld) [Vol rate/Area] - [facility] Comment on above: These results are not [...] [Mass/Vol] 97 mg/dL 70 - 99 mg/dL [facility] Potassium [Moles/Vol] 3.6 mmol/L Low 3.7 - 5.3 mmol/L [facility] Protein [Mass/Vol] 6.6 g/dL 6.4 - 8.3 g/dL [facility] Sodium [Moles/Vol] 140 mmol/L 135 - 144 mmol/L [facility] Urea nitrogen [Mass/Vol] 17 mg/dL 8 - 23 mg/dL [facility] Urea nitrogen/Creatinine [Mass ratio] 19 mg/mg 9 - 20 [facility] EKG 12 Leadon 06-30-2023 Atrial Rate 69 BPM [facility] P [place] 52 degrees [facility] P-R Interval 204 ms [facility] Q-T Interval 388 ms [facility] QRS Duration 96 ms [facility] QTc Calculation (Bazett) 415 ms [facility] R [place] 28 degrees [facility] T [place] 21 degrees [facility] Ventricular Rate 69 BPM [facility] Normal sinus rhythm Normal ECG [facility] Mychal Fontana MD - 06/30/2023 Normal sinus rhythm Normal ECG [facility] EKG Rhythm Stripon [facility] Lipaseon 06-30-2023 Lipase [Catalytic activity/Vol] 137 U/L High 13-60 [facility] Comment on above: Performed By: #### C HETAL, CP #### [facility] [address] [place] [address] Tool Filer Hand: Shaq Mullen MD #### GLYHGKostas, VD25 #### [facility] [employer] [address] [place], [place] [phone] Tool Filer Hand: He Driscoll MD Lipase [Catalytic activity/Vol] 137 U/L High 13 - 60 U/L [facility] Lipid Panelon 06-30-2023 Cholesterol [Mass/Vol] 100 mg/dL NINF - 200 mg/dL [facility] Comment on above: Cholesterol Guidelines: <200 Desirable 200-240 Borderline >240 Undesirable Cholesterol in HDL [Mass/Vol] 26 mg/dL Low 40 - PINF mg/dL [facility] Comment on above: HDL Guidelines: <40 Undesirable 40-59 Borderline >59 Desirable Cholesterol in LDL [Mass/Vol] 54 mg/dL 0 - 130 mg/dL [facility] Comment on above: LDL Guidelines: <100 Desirable 100-129 Near to/above Desirable 130-159 Borderline >159 Undesirable Direct (measured) LDL and calculated LDL are not interchangeable tests. Cholesterol.total/Cho lesterol in HDL [Mass ratio] 3.8 {ratio} NINF - 5 [facility] Interpretation and review of laboratory results Abnormal [facility] Triglyceride [Mass/Vol] 99 mg/dL NINF - 150 mg/dL [facility] Comment on above: Triglyceride Guidelines: <150 Desirable 150-199 Borderline 200-499 High >499 Very high Based on AHA Guidelines for fasting triglyceride, February 2012. [facility] Lipid Profileon 06-30-2023 Cholesterol [Mass/Vol] 100 mg/dL Normal <200 [facility] Comment on above: Result Comment: Cholesterol Guidelines: <200 Desirable 200-240 Borderline >240 Undesirable Performed By: #### L IPR #### [facility] [employer] [address] [place], [place] [id number] Tool Filer Hand: He Driscoll MD Cholesterol in HDL [Mass/Vol] 26 mg/dL Low >40 [facility] Comment on above: Result Comment: HDL Guidelines: <40 Undesirable 40-59 Borderline >59 Desirable Performed By: #### L IPR #### [facility] [employer] [address] [place] [address] [phone] Tool Filer Hand: He Driscoll MD Cholesterol in LDL [Mass/Vol] 54 mg/dL Normal 0-130 [facility] Comment on above: Result Comment: LDL Guidelines: <100 Desirable 100-129 Near to/above Desirable 130-159 Borderline >159 Undesirable Direct (measured) LDL and calculated LDL are not interchangeable tests. Performed By: #### L IPR #### [facility] [employer] [address] [place] [address] [phone] Tool Filer Hand: He Driscoll MD Cholesterol.total/Cho lesterol in HDL [Mass ratio] 3.8 {ratio} Normal <5 [facility] Comment on above: Performed By: #### L IPR #### [facility] [employer] [address] [place] [address] [phone] Tool Filer Hand: He Driscoll MD Triglyceride [Mass/Vol] 99 mg/dL Normal <150 [facility] Comment on above: Result Comment: Triglyceride Guidelines: <150 Desirable 150-199 Borderline 200-499 High >499 Very high Based on AHA Guidelines for fasting triglyceride, February 2012. Performed By: #### L IPR #### [address] [phone] Tool Filer Hand: He Driscoll MD No Panel Informationon 06-30 [facility] Interpretation and review of laboratory results Abnormal [facility] CBC with Auto Differentialon 06-29-2023 Basophils (Bld) [#/Vol] 0.02 10*3/uL [facility] Basophils/100 WBC (Bld) 0 % 0 - 2 % [facility] Eosinophils (Bld) [#/Vol] 0.09 10*3/uL [facility] Eosinophils/100 WBC (Bld) 1 % 0 - 5 % [facility] Erythrocyte distribution width (RBC) [Ratio] 12.9 % 12.1 - 15.2 % [facility] Hematocrit (Bld) [Volume fraction] 42.9 % 41.0 - 53.0 % [facility] Hemoglobin (Bld) [Mass/Vol] 14.5 g/dL 13.5 - 17.5 g/dL [facility] Immature granulocytes (Bld) [#/Vol] 0.01 10*3/uL [facility] Immature granulocytes/100 WBC (Bld) 0 % 0 - 5 % [facility] Interpretation and review of laboratory results Abnormal [facility] Lymphocytes/100 WBC (Bld) 9 % Low 13 - 44 % [facility] Lymphocytes/100 WBC (Bld) 1.05 % [facility] MCH (RBC) [Entitic mass] 30.7 pg 26.0 - 34.0 pg [facility] MCHC (RBC) [Mass/Vol] 33.8 g/dL 31.0 - 37.0 g/dL [facility] MCV (RBC) [Entitic vol] 90.7 fL 80.0 - 100.[address] [facility] Monocytes/100 WBC (Bld) 7 % 5 - 9 % [facility] Monocytes/100 WBC (Bld) 0.84 % [facility] Neutrophils/100 WBC (Bld) 83 % High 39 - 75 % [facility] Platelet mean volume (Bld) [Entitic vol] 10.6 fL 6.0 - 12.[address] [facility] Platelets (Bld) [#/Vol] 308 10*3/uL [facility] RBC (Bld) [#/Vol] 4.73 10*6/uL 4.50 - 5.9 0 m/uL [facility] Segmented neutrophils/100 WBC (Bld) 9.48 % High [facility] WBC other (Bld) [#/Vol] 11.5 High [facility] CBC with Diffon 06-29-2023 Abs. Basophil 0.02 k/uL Normal 0.00-0.20 [facility] Comment on above: Performed By: #### C DP, LACTIC, LIP, CP #### [facility] [address] [place] [address] Tool Filer Hand: Shaq Mullen MD Abs.Imm.Granulocyte 0.01 k/uL Normal 0.00-0.30 [facility] Comment on above: Performed By: #### C DP, LACTIC, LIP, CP #### [facility] [address] [place] [address] Tool Filer Hand: Shaq Mullen MD Abs.Neutrophil (Seg) 9.48 k/uL High 2.1-6.5 [facility] Comment on above: Performed By: #### C DP, LACTIC, LIP, CP #### [facility] [address] [place] [address] Tool Filer Hand: Shaq Mullen MD Basophils/100 WBC (Bld) 0 % Normal 0-2 [facility] Comment on above: Performed By: #### C DP, LACTIC, LIP, CP #### [facility] [address] [place] [address] Tool Filer Hand: Shaq Mullen MD Eosinophils (Bld) [#/Vol] 0.09 10*3/uL Normal 0.00-0.40 [facility] Comment on above: Performed By: #### C DP, LACTIC, LIP, CP #### [facility] [address] [place] [phone] Tool Filer Hand: Shaq Mullen MD Eosinophils/100 WBC (Bld) 1 % Normal 0-5 [facility] Comment on above: Performed By: #### C DP, LACTIC, LIP, CP #### [facility] [address] [place] [phone] Tool Filer Hand: Shaq Mullen MD Erythrocyte distribution width (RBC) [Ratio] 12.9 % Normal 12.1-15.2 [facility] Comment on above: Performed By: #### C DP, LACTIC, LIP, CP #### [facility] [address] [place] [address] Tool Filer Hand: Shaq Mullen MD Hematocrit (Bld) [Volume fraction] 42.9 % Normal 41.0-53.0 [facility] Comment on above: Performed By: #### C DP, LACTIC, LIP, CP #### [facility] [address] [place] [address] Tool Filer Hand: Shaq Mullen MD Hemoglobin (Bld) [Mass/Vol] 14.5 g/dL Normal 13.5-17.5 [facility] Comment on above: Performed By: #### C DP, LACTIC, LIP, CP #### [facility] [address] [place] [address] Tool Filer Hand: Shaq Mullen MD Immature granulocytes/100 WBC (Bld) 0 % Normal 0-5 [facility] Comment on above: Performed By: #### C DP, LACTIC, LIP, CP #### [facility] [address] [place] [phone] Tool Filer Hand: Shaq Mullen MD Lymphocytes (Bld) [#/Vol] 1.05 10*3/uL Normal 1.00-4.80 [facility] Comment on above: Performed By: #### C DP, LACTIC, LIP, CP #### [facility] [address] [place] [phone] Tool Filer Hand: Shaq Mullen MD Lymphocytes/100 WBC (Bld) 9 % Low 13-44 [facility] Comment on above: Performed By: #### C DP, LACTIC, LIP, CP #### [facility] [address] [place] [address] Tool Filer Hand: Shaq Mullen MD MCH (RBC) [Entitic mass] 30.7 pg Normal 26.0-34.0 [facility] Comment on above: Performed By: #### C DP, LACTIC, LIP, CP #### [facility] [address] [place] [address] Tool Filer Hand: Shaq Mullen MD MCHC (RBC) [Mass/Vol] 33.8 g/dL Normal 31.0-37.0 [facility] Comment on above: Performed By: #### C DP, LACTIC, LIP, CP #### [facility] [address] [place] [address] Tool Filer Hand: Shaq Mullen MD MCV (RBC) [Entitic vol] 90.7 fL Normal 80.0-100.0 [facility] Comment on above: Performed By: #### C DP, LACTIC, LIP, CP #### [facility] [address] [place] [address] Tool Filer Hand: Shaq Mullen MD Monocytes (Bld) [#/Vol] 0.84 10*3/uL Normal 0.00-1.00 [facility] Comment on above: Performed By: #### C DP, LACTIC, LIP, CP #### [facility] [address] [place] [address] Tool Filer Hand: Shaq Mullen MD Monocytes/100 WBC (Bld) 7 % Normal 5-9 [facility] Comment on above: Performed By: #### C DP, LACTIC, LIP, CP #### [facility] [address] [place] [phone] Tool Filer Hand: Shaq Mullen MD Neutrophil (Seg) 83 % High 39-75 [facility] Comment on above: Performed By: #### C DP, LACTIC, LIP, CP #### [facility] [address] [place] [address] Tool Filer Hand: Shaq Mullen MD Platelet mean volume (Bld) [Entitic vol] 10.6 fL Normal 6.0-12.0 [facility] Comment on above: Performed By: #### C DP, LACTIC, LIP, CP #### [facility] [address] [place], [place] [phone] Tool Filer Hand: Shaq Mullen MD Platelets (Bld) [#/Vol] 308 10*3/uL Normal 140-450 [facility] Comment on above: Performed By: #### C DP, LACTIC, LIP, CP #### [facility] [address] [place], [place] [phone] Tool Filer Hand: Shaq Mullen MD RBC (Bld) [#/Vol] 4.73 10*6/uL Normal 4.50-5.90 [facility] Comment on above: Performed By: #### C DP, LACTIC, LIP, CP #### [facility] [address] [place], [place] [phone] Tool Filer Hand: Shaq Mullen MD WBC (Bld) [#/Vol] 11.5 10*3/uL High 3.5-11.0 [facility] Comment on above: Performed By: #### C DP, LACTIC, LIP, CP #### [facility] [address] [place], [place] [phone] Tool Filer Hand: Shaq Mullen MD CT ABDOMEN PELVIS W [...] Gagandeep Delcid MD 06/29/23 Final result Normal [facility] CT Abdomen and Pelvis W cont [...] moderate canal and advanced multilevel foraminal stenosis. [facility] RIS CONSOLIDATED Gagandeep Delcid MD - 06/29/2023 [...] prior inguinal hernia repair on the left. [facility] Radiology Study observation (narrative) [facility] CT Abdomen and Pelvis W cont rast IVOrdered By: Gagandeep Delcid on 06-29-2023 [facility] Work Phone: Comp Metabolic Profon 2023 Albumin [Mass/Vol] 4.1 g/dL Normal 3.5-5.2 [facility] Comment on above: Performed By: #### C DP, RAJINDER, LIP, CP #### [facility] [address] [place] [address] Tool Filer Hand: Shaq Mullen MD Alkaline Phos 265 U/L High 40-129 [facility] Comment on above: Performed By: #### C DP, LACTIC, LIP, CP #### [facility] [address] [place] [address] Tool Filer Hand: Shaq Mullen MD ALT [Catalytic activity/Vol] 343 U/L High 5-41 [facility] Comment on above: Performed By: #### C DP, LACTIC, LIP, CP #### [facility] [address] [place] [address] Tool Filer Hand: Shaq Mullen MD Anion gap [Moles/Vol] 11 mmol/L Normal 9-17 [facility] Comment on above: Performed By: #### C DP, LACTIC, LIP, CP #### [facility] [address] [place] [address] Tool Filer Hand: Shaq Mullen MD AST [Catalytic activity/Vol] 326 U/L High <40 [facility] Comment on above: Performed By: #### C DP, LACTIC, LIP, CP #### [facility] [address] [place] [address] Tool Filer Hand: Shaq Mullen MD Bilirubin [Mass/Vol] 1.7 mg/dL High 0.3-1.2 [facility] Comment on above: Performed By: #### C DP, LACTIC, LIP, CP #### [facility] [address] [place] [address] Tool Filer Hand: Shaq Mullen MD BUN/CRE Ratio 23 High 9-20 [facility] Comment on above: Performed By: #### C DP, LACTIC, LIP, CP #### [facility] [address] [place] [address] Tool Filer Hand: Shaq Mullen MD Calcium [Mass/Vol] 10.0 mg/dL Normal 8.6-10.4 [facility] Comment on above: Performed By: #### C DP LACTIC, LIP, CP #### [facility] [address] [place], [place] [phone] Tool Filer Hand: Shaq Mullen MD Chloride [Moles/Vol] 101 mmol/L Normal 98-107 [facility] Comment on above: Performed By: #### C DP, LACTIC, LIP, CP #### [facility] [address] [place] [address] Tool Filer Hand: Shaq Mullen MD CO2 [Moles/Vol] 26 mmol/L Normal 20-31 [facility] Comment on above: Performed By: #### C DP LACTIC LIP, CP #### [facility] [address] [place] [address] Tool Filer Hand: Shaq Mullen MD Creatinine [Mass/Vol] 0.8 mg/dL Normal 0.7-1.2 [facility] Comment on above: Performed By: #### C DP LACTIC, LIP, CP #### [facility] [address] [place] [address] Tool Filer Hand: Shaq Mullen MD GFR/1.73 sq M.predicted among non-blacks MDRD (S/P/Bld) [Vol rate/Area] mL/min/{1.73_m2} Normal >60 [facility] Comment on above: Result Comment: These [...] #### C DP, LACTIC, LIP, CP #### [facility] [address] [place], [place] [phone] Tool Filer Hand: Shaq Mullen MD Glucose [Mass/Vol] 165 mg/dL High 70-99 [facility] Comment on above: Performed By: #### C DP, LACTIC, LIP, CP #### [facility] [address] [place], [place] [phone] Tool Filer Hand: Shaq Mullen MD Potassium [Moles/Vol] 4.2 mmol/L Normal 3.7-5.3 [facility] Comment on above: Performed By: #### C DP, LACTIC, LIP, CP #### [facility] [address] [place] [phone] Tool Filer Hand: Shaq Mullen MD Protein [Mass/Vol] 7.2 g/dL Normal 6.4-8.3 [facility] Comment on above: Performed By: #### C DP, LACTIC, LIP, CP #### [facility] [address] [place] [phone] Tool Filer Hand: Shaq Mullen MD Sodium [Moles/Vol] 138 mmol/L Normal 135-144 [facility] Comment on above: Performed By: #### C DP, LACTIC, LIP, CP #### [facility] [address] [place], [place] [phone] Tool Filer Hand: Shaq Mullen MD Urea nitrogen [Mass/Vol] 18 mg/dL Normal 8-23 [facility] Comment on above: Performed By: #### C DP, LACTIC, LIP, CP #### [facility] [address] [place], [place] [phone] Tool Filer Hand: Shaq Mullen MD Comprehensive Metabolic Pane ko 06-29-2023 Albumin [Mass/Vol] 4.1 g/dL 3.5 - 5.2 g/dL [facility] ALP [Catalytic activity/Vol] 265 U/L High 40 - 129 U/L [facility] ALT [Catalytic activity/Vol] 343 U/L High 5 - 41 U/L [facility] Anion gap [Moles/Vol] 11 mmol/L 9 - 17 mmol/L [facility] AST [Catalytic activity/Vol] 326 U/L High NINF - 40 U/L [facility] Bilirubin [Mass/Vol] 1.7 mg/dL High 0.3 - 1 .2 mg/dL [facility] Calcium [Mass/Vol] 10.0 mg/dL 8.6 - 10. 4 mg/dL [facility] Chloride [Moles/Vol] 101 mmol/L 98 - 10 7 mmol/L [facility] CO2 [Moles/Vol] 26 mmol/L 20 - 31 mmol/L [facility] Creatinine [Mass/Vol] 0.8 mg/dL 0.7 - 1.2 mg/dL [facility] GFR/1.73 sq M.predicted MDRD (S/P/Bld) [Vol rate/Area] - [facility] Comment on above: These results are not [...] 165 mg/dL High 70 - 99 mg/dL [facility] Potassium [Moles/Vol] 4.2 mmol/L 3.7 - 5.3 mmol/L [facility] Protein [Mass/Vol] 7.2 g/dL 6.4 - 8.3 g/dL [facility] Sodium [Moles/Vol] 138 mmol/L 135 - 144 mmol/L [facility] Urea nitrogen [Mass/Vol] 18 mg/dL 8 - 23 mg/dL [facility] Urea nitrogen/Creatinine [Mass ratio] 23 mg/mg High 9 - 20 [facility] Lactic Acidon 06-29-2023 Lactate [Moles/Vol] 1.5 mmol/L Normal 0.5-2.2 [facility] Comment on above: Performed By: #### C DP, LACTIC, LIP, CP #### [facility] [address] [place] [address] Tool Filer Hand: Shaq Mullen MD Lactate (BldV) [Moles/Vol] 1.5 mmol/L 0.5 - 2.2 mmol/L [facility] Lipaseon 06-29-2023 Lipase [Catalytic activity/Vol] U/L Critically high 13-60 [facility] Comment on above: Performed By: #### C DP, LACTIC, LIP, CP #### [facility] [address] [place] [address] Tool Filer Hand: Shaq Mullen MD Lipase [Catalytic activity/Vol] U/L Critically high 13 - 60 U/L [facility] No Panel Informationon 06-29 Interpretation and review of laboratory results Abnormal [facility] Troponinon 06-29-2023 Troponin, High Sens 16 ng/L Normal 0-22 [facility] Comment on above: Result Comment: High Sensitivity Troponin values cannot be compared with other Troponin methodologies. Performed By: #### C DP, CP #### [facility] [address] [place] [address] Tool Filer Hand: Shaq Mullen MD #### GLYHGB, VD25 #### [address] [address] Tool Filer Hand: He Driscoll MD Troponin I.cardiac High sensitivity method [Mass/Vol] 16 ng/L 0 - 22 ng/L [facility] Comment on above: High Sensitivity Tro ponin values cannot be compared with other Troponin methodologies. [facility] US GALLBLADDER RUQon 024 US GALLBLADDER RUQ [...] Shaq Meyer MD 06/29/23 Final result Normal [facility] US Gallbladderon 06-29-2023 Moderate cholelithiasis and [...] visualized proximal aorta and IVC are normal [facility] RIS CONSOLIDATED Shaq Meyer MD - 06/29/2023 [...] sludge with gallbladder wall thickening suggesting cholecystitis [facility] Radiology Study observation (narrative) [facility] US GallbladderOrdered By: Oscar Meyer on 06-29-[address] FOOT LEFT WO CONTRASTon 0 02-15-2023 CT FOOT LEFT WO CONTRAST EXAM: CT scan left foot and ankle - 02/15/2023. HISTORY:Left foot pain and pain in the left great toe. Hallux rigidus of the left foot. 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 Preoperative evaluation. COMPARISON: Radiographs left foot obtained at [facility] 12/20/2022. TECHNIQUE: Multiple contiguous axial CT images [...] Chuy Max MD 02/15/23 Final result Normal [facility] Comp Metabolic Profon 2022 Albumin [Mass/Vol] 4.0 g/dL Normal 3.5-5.2 [facility] Comment on above: Performed By: #### C P #### [facility] [address] [place] [address] Tool Filer Hand: Shaq Mullen MD Alkaline Phos 117 U/L Normal 40-129 [facility] Comment on above: Performed By: #### C P #### [facility] [address] [place] [address] Tool Filer Hand: Shaq Mullen MD ALT [Catalytic activity/Vol] 25 U/L Normal 5-41 [facility] Comment on above: Performed By: #### C P #### [facility] [address] [place] [address] Tool Filer Hand: Shaq Mullen MD Anion gap [Moles/Vol] 11 mmol/L Normal 9-17 [facility] Comment on above: Performed By: #### C P #### [facility] [address] [place] [address] Tool Filer Hand: Shaq Mullen MD AST [Catalytic activity/Vol] 22 U/L Normal <40 [facility] Comment on above: Performed By: #### C P #### [facility] [address] [place], [place] [phone] Tool Filer Hand: Shaq Mullen MD Bilirubin [Mass/Vol] 0.4 mg/dL Normal 0.3-1.2 [facility] Comment on above: Performed By: #### C P #### [facility] [address] [place] [address] Tool Filer Hand: Shaq Mullen MD BUN/CRE Ratio 19 Normal 9-20 [facility] Comment on above: Performed By: #### C P #### [facility] [address] [place] [address] Tool Filer Hand: Shaq Mullen MD Calcium [Mass/Vol] 9.7 mg/dL Normal 8.6-10.4 [facility] Comment on above: Performed By: #### C P #### [facility] [address] [place], [place] [phone] Tool Filer Hand: Shaq Mullen MD Chloride [Moles/Vol] 104 mmol/L Normal 98-107 [facility] Comment on above: Performed By: #### C P #### [facility] [address] [place] [address] Tool Filer Hand: Shaq Mullen MD CO2 [Moles/Vol] 22 mmol/L Normal 20-31 [facility] Comment on above: Performed By: #### C P #### [facility] [address] [place], [place] [phone] Tool Filer Hand: Shaq Mullen MD Creatinine [Mass/Vol] 0.95 mg/dL Normal 0.70-1.20 [facility] Comment on above: Performed By: #### C P #### [facility] [address] [place], [place] [phone] Tool Filer Hand: Shaq Mullen MD GFR/1.73 sq M.predicted among non-blacks MDRD (S/P/Bld) [Vol rate/Area] mL/min/{1.73_m2} Normal >60 [facility] Comment on above: Result Comment: These [...] secretion. Performed By: #### C P #### [facility] [address] [place], [place] [phone] Tool Filer Hand: Shaq Mullen MD Glucose [Mass/Vol] 137 mg/dL High 70-99 [facility] Comment on above: Performed By: #### C P #### [facility] [address] [place], [place] [phone] Tool Filer Hand: Shaq Mullen MD Potassium [Moles/Vol] 3.8 mmol/L Normal 3.7-5.3 [facility] Comment on above: Performed By: #### C P #### [facility] [address] [place], [place] [phone] Tool Filer Hand: Shaq Mullen MD Protein [Mass/Vol] 7.1 g/dL Normal 6.4-8.3 [facility] Comment on above: Performed By: #### C P #### [facility] [address] [place] [address] Tool Filer Hand: Shaq Mullen MD Sodium [Moles/Vol] 137 mmol/L Normal 135-144 [facility] Comment on above: Performed By: #### C P #### [facility] [address] [place] [address] Tool Filer Hand: Shaq Mullen MD Urea nitrogen [Mass/Vol] 18 mg/dL Normal 8-23 [facility] Comment on above: Performed By: #### C P #### [facility] [address] [place] [address] Tool Filer Hand: Shaq Mullen MD Comprehensive Metabolic Pane [facility] 10-05-2022 Albumin [Mass/Vol] 4 g/dL 3.5 - 5.2 g/dL [facility] ALP [Catalytic activity/Vol] 117 U/L 40 - 129 U/L [facility] ALT [Catalytic activity/Vol] 25 U/L 5 - 41 U/L [facility] Anion gap [Moles/Vol] 11 mmol/L 9 - 17 mmol/L [facility] AST [Catalytic activity/Vol] 22 U/L NINF - 40 U/L [facility] Bilirubin [Mass/Vol] 0.4 mg/dL 0.3 - 1 .2 mg/dL [facility] Calcium [Mass/Vol] 9.7 mg/dL 8.6 - 10. 4 mg/dL [facility] Chloride [Moles/Vol] 104 mmol/L 98 - 10 7 mmol/L [facility] CO2 [Moles/Vol] 22 mmol/L 20 - 31 mmol/L [facility] Creatinine [Mass/Vol] 0.95 mg/dL 0.70 - 1.20 mg/dL [facility] GFR/1.73 sq M.predicted MDRD (S/P/Bld) [Vol rate/Area] - [facility] Comment on above: These results are not [...] 137 mg/dL High 70 - 99 mg/dL [facility] [employer] Interpretation and review of laboratory results Abnormal [facility] Potassium [Moles/Vol] 3.8 mmol/L 3.7 - 5.3 mmol/L [facility] Protein [Mass/Vol] 7.1 g/dL 6.4 - 8.3 g/dL [facility] Sodium [Moles/Vol] 137 mmol/L 135 - 144 mmol/L [facility] Urea nitrogen [Mass/Vol] 18 mg/dL 8 - 23 mg/dL [facility] Urea nitrogen/Creatinine (Bld) [Mass ratio] 19 9 - 20 [facility] CT CERVICAL SPINE WO CONTRAS Ton 08-16-2022 1. No fracture or malalignment. 2. Moderate [...] or other acute bony abnormality is seen. [facility] Rick Islas MD - 08/16/2022 [...] arthrosis, resulting in mild right foraminal stenosis. [employer] Phone: Radiology Study observation (narrative) [employer] Phone: CT CERVICAL SPINE WO CONTRAS TOrdered By: Rick Dominguez on 08-16-2022 [employer] Phone: CT THORACIC SPINE WO CONTRAS Ton 08-16-2022 This is a negative CT scan of the thoracic spine with no fractures or loss of vertebral body height. [facility] EXAMINATION: CT THORACIC SPINE WO CONTRAST [...] central canal stenosis throughout the thoracic spine. [facility] Alexi Toussaint MD - 08/16/2022 EXAMINATION: CT THORACIC SPINE [...] fractures or loss of vertebral body height. [facility] [employer] Phone: Radiology Study observation (narrative) [employer] Phone: CT THORACIC SPINE WO CONTRAS TOrdered By: Alexi Toussaint on 08-16-[address] [facility] [employer] Phone: CBC with Auto Differentialon 01-25-2022 Absolute Eos # 0.20 [facility] Absolute Lymph # 1.60 [facility] Absolute [place] # 0.50 [facility] Basophils (Bld) [#/Vol] 0.00 10*3/uL [facility] Basophils/100 WBC (Bld) 0 % 0 - 2 % [facility] Differential Type YES [facility] Eosinophils/100 WBC (Bld) 2 % 0 - 5 % [facility] Hematocrit (Bld) [Volume fraction] 44.6 % 41 - 53 % [facility] Hemoglobin (Bld) [Mass/Vol] 15.0 g/dL 13.5 - 17.5 g/dL [facility] Lymphocytes/100 WBC (Bld) 20 % 13 - 44 % [facility] MCH (RBC) [Entitic mass] 30.2 pg 26 - 34 pg [facility] MCHC (RBC) [Mass/Vol] 33.7 g/dL 31 - 37 g/dL [facility] MCV (RBC) [Entitic vol] 89.6 fL 80 - 100 fL [facility] Monocytes/100 WBC (Bld) 7 % 5 - 9 % [facility] Platelet distribution width (Bld) [Ratio] 13.5 % 12.1 - 15.2 % [facility] Platelets (Bld) [#/Vol] 264 10*3/uL [facility] RBC (Bld) [#/Vol] 4.98 10*6/uL 4.5 - 5.9 m/uL [facility] Segmented neutrophils/100 WBC (Bld) 71 % 39 - 75 % [facility] Segs Absolute 5.60 [facility] WBC (Bld) [#/Vol] 7.9 10*3/uL [facility] Comprehensive Metabolic Pane ko 01-25-2022 Albumin [Mass/Vol] 4.3 g/dL 3.5 - 5.2 g/dL [facility] ALP (Bld) [Catalytic activity/Vol] 124 U/L 40 - 129 U/L [facility] ALT [Catalytic activity/Vol] 24 U/L 5 - 41 U/L [facility] Anion gap [Moles/Vol] 11 mmol/L 9 - 17 mmol/L [facility] AST [Catalytic activity/Vol] 21 U/L NINF - 40 U/L [facility] Bilirubin [Mass/Vol] 0.60 mg/dL 0.3 - 1 .2 mg/dL [facility] Calcium [Mass/Vol] 9.5 mg/dL 8.6 - 10. 4 mg/dL [facility] Chloride [Moles/Vol] 101 mmol/L 98 - 10 7 mmol/L [facility] CO2 [Moles/Vol] 24 mmol/L 20 - 31 mmol/L [facility] Creatinine [Mass/Vol] 0.89 mg/dL 0.7 - 1.2 mg/dL [facility] Free PSA/Total PSA [Mass fraction] 7.3 g/dL 6.4 - 8.3 g/dL [facility] GFR >60 60 - PI NF mL/min [facility] GFR Non- >60 60 - PINF mL/min [facility] GFR/1.73 sq M.predicted MDRD (S/P/Bld) [Vol rate/Area] [facility] Comment on above: Average GFR for 60-6 9 years old: 85 mL/min/1.73sq m Chronic Kidney Disease: <60 mL/min/1.73sq m Kidney failure: <15 mL/min/1.73sq m eGFR calculated using average adult body mass. Additional eGFR calculator available at: http://www.[employer].Zbird/multiple_crcl_2012.htm Glucose [Mass/Vol] 120 mg/dL High 70 - 99 mg/dL [facility] Interpretation and review of laboratory results Abnormal [facility] Potassium [Moles/Vol] 4.3 mmol/L 3.7 - 5.3 mmol/L [facility] Sodium [Moles/Vol] 136 mmol/L 135 - 144 mmol/L [facility] Urea nitrogen (BldV) [Mass/Vol] 16 mg/dL 8 - 23 mg/dL [facility] Urea nitrogen/Creatinine (Bld) [Mass ratio] 18 9 - 20 [facility] Lipid Panelon 01-25-2022 Cholesterol [Mass/Vol] 95 mg/dL NINF - 200 mg/dL [facility] Comment on above: Cholesterol Guidelines: <200 Desirable 200-240 Borderline >240 Undesirable Cholesterol in HDL [Mass/Vol] 27 mg/dL Low 40 - PINF mg/dL [facility] Comment on above: HDL Guidelines: <40 Undesirable 40-59 Borderline >59 Desirable Cholesterol in LDL [Mass/Vol] 55 mg/dL 0 - 130 mg/dL [facility] Comment on above: LDL Guidelines: <100 Desirable 100-129 Near to/above Desirable 130-159 Borderline >159 Undesirable Direct (measured) LDL and calculated LDL are not interchangeable tests. Cholesterol.total/Cho lesterol in HDL [Mass ratio] 3.5 {ratio} NINF - 5 [facility] Interpretation and review of laboratory results Abnormal [facility] Triglyceride [Mass/Vol] 67 mg/dL NINF - 150 mg/dL [facility] Comment on above: Triglyceride Guidelines: <150 Desirable 150-199 Borderline 200-499 High >499 Very high Based on AHA Guidelines for fasting triglyceride, February 2012. [facility] PSA Screeningon 01-25-2022 [facility] Patient Fasting?on 2 Patient Fasting? YES [facility] COVID-19, Rapidon 07-28-2021 SARS-CoV-2 (COVID-19) RNA JORGITO+probe Ql (Unsp spec) Not detected Not Detected [facility] Comment on above: Rapid NAAT: The [...] management decisions. Fact sheet for Healthcare Providers: https://www.fda.gov/media/119821/download Fact sheet for Patients: https://www.Medaxion.gov/media/336856/download Methodology: Isothermal Nucleic Acid Amplification Specimen Description .NASOPHARYNGEAL SWAB [facility] No Panel Informationon 07-28 Direct Exam Negative [facility] Rapid Influenza A/B Antigens on 07-28-2021 Specimen Description .NASOPHARYNGEAL SWAB [facility] CBC Auto Differentialon 04-28 Basophils (Bld) [#/Vol] 0.00 10*3/uL [place] Basophils/100 WBC (Bld) 1 % 0 - 2 % [place] Differential Type YES [place] Eosinophils (Bld) [#/Vol] 0.10 10*3/uL [place] Eosinophils/100 WBC (Bld) 1 % 0 - 5 % [place] Erythrocyte distribution width (RBC) [Ratio] 14.2 % 12.1 - 15.2 % [place] Hematocrit (Bld) [Volume fraction] 43.7 % 41 - 53 % [place] Hemoglobin (Bld) [Mass/Vol] 14.9 g/dL 13.5 - 17.5 g/dL [place] Lymphocytes (Bld) [#/Vol] 1.50 10*3/uL [place] Lymphocytes/100 WBC (Bld) 18 % 13 - 44 % [place] MCH (RBC) [Entitic mass] 30.9 pg 26 - 34 pg [place] MCHC (RBC) [Mass/Vol] 34.2 g/dL 31 - 37 g/dL [place] MCV (RBC) [Entitic vol] 90.3 fL 80 - 100 fL [place] Monocytes (Bld) [#/Vol] 0.50 10*3/uL [place] Monocytes/100 WBC (Bld) 6 % 5 - 9 % [place] Platelet mean volume (Bld) [Entitic vol] NOT REPORTED 6 - 12 fL [place] Platelets (Bld) [#/Vol] NOT REPORTED [place] Platelets (Bld) [#/Vol] 289 10*3/uL [place] RBC (Bld) [#/Vol] 4.84 10*6/uL 4.5 - 5.9 m/uL [place] RBC morphology finding Nom (Bld) NOT REPORTED [place] Segmented neutrophils/100 WBC (Bld) 74 % 39 - 75 % [place] Segs Absolute 6.40 [place] WBC (Bld) [#/Vol] 8.5 10*3/uL [place] WBC (Bld) [#/Vol] NOT REPORTED per 100 WBC [place] WBC Morphology NOT REPORTED [place] Comprehensive Metabolic Pane ko 05-20-2020 Albumin [Mass/Vol] 4.4 g/dL 3.5 - 5.2 g/dL [place] Albumin/Globulin [Mass ratio] NOT REPORTED [place] ALP [Catalytic activity/Vol] 135 U/L High 40 - 129 U/L [place] ALT [Catalytic activity/Vol] 36 U/L 5 - 41 U/L [place] Anion gap [Moles/Vol] 10 mmol/L 9 - 17 mmol/L [place] AST [Catalytic activity/Vol] 29 U/L <40 [place] Bilirubin Ql (U) 0.47 mg/dL 0.3 - 1.2 mg/dL [place] Bun/Cre Ratio 15 [place] Calcium [Mass/Vol] 9.1 mg/dL 8.6 - 10. 4 mg/dL [place] Chloride [Moles/Vol] 102 mmol/L 98 - 10 7 mmol/L [place] CO2 [Moles/Vol] 27 mmol/L 20 - 31 mmol/L [place] Creatinine [Mass/Vol] 0.91 mg/dL 0.7 - 1.2 mg/dL [place] GFR >60 >60 mL/min [place] GFR Non- >60 >60 mL/min [place] GFR/1.73 sq M predicted among non-blacks MDRD (S/P/Bld) [Vol rate/Area] [place] Comment on above: Average GFR for 60-6 9 years old: 85 mL/min/1.73sq m Chronic Kidney Disease: <60 mL/min/1.73sq m Kidney failure: <15 mL/min/1.73sq m eGFR calculated using average adult body mass. Additional eGFR calculator available at: http://www.[employer]/multiple_crcl_2012.htm GFR/1.73 sq M predicted among non-blacks MDRD (S/P/Bld) [Vol rate/Area] NOT REPORTED [place] Glucose [Mass/Vol] 121 mg/dL High 70 - 99 mg/dL [place] Interpretation and review of laboratory results Abnormal [place] Potassium [Moles/Vol] 4.2 mmol/L 3.7 - 5.3 mmol/L [place] Protein [Mass/Vol] 7.3 g/dL 6.4 - 8.3 g/dL [place] Sodium [Moles/Vol] 139 mmol/L 135 - 144 mmol/L [place] Urea nitrogen [Mass/Vol] 14 mg/dL 8 - 23 mg/dL [place] Hemoglobin A1Con 05-20-2020 Glucose [Mass/Vol] 134 mg/dL [place] Comment on above: The ADA and AACC rec ommend providing the estimated average glucose result to permit better patient understanding of their HBA1c result. HbA1c (Bld) [Mass fraction] 6.3 % High 4 - 6 % [place] Interpretation and review of laboratory results Abnormal [place] Hepatitis C Antibodyon 05-20 Hepatitis C Ab NONREACTIVE NONREACTIVE [place] Comment on above: The hepatitis C [...] Panelon 05-20-2020 Cholesterol [Mass/Vol] 99 mg/dL <200 [place] Comment on above: Cholesterol Guidelines: <200 Desirable 200-240 Borderline >240 Undesirable Cholesterol in HDL [Mass/Vol] 33 mg/dL Low >40 [place] Comment on above: HDL Guidelines: <40 Undesirable 40-59 Borderline >59 Desirable Cholesterol in LDL [Mass/Vol] 53 mg/dL 0 - 130 mg/dL [place] Comment on above: LDL Guidelines: <100 Desirable 100-129 Near to/above Desirable 130-159 Borderline >159 Undesirable Direct (measured) LDL and calculated LDL are not interchangeable tests. Cholesterol in VLDL [Mass/Vol] NOT REPORTED 1 - 30 mg/dL [place] Cholesterol.total/Cho lesterol in HDL [Mass ratio] 3 {ratio} <5 [place] Interpretation and review of laboratory results Abnormal [place] Triglyceride [Mass/Vol] 66 mg/dL <150 [place] Comment on above: Triglyceride Guidelines: <150 Desirable 150-199 Borderline 200-499 High >499 Very high Based on AHA Guidelines for fasting triglyceride, February 2012. Otheron 05-20-2020 Immature granulocytes (Bld) [#/Vol] NOT REPORTED [place] Patient Fasting?on 0 Patient Fasting? YES [place] US SCREENING FOR AAAon 05-11 Normal abdominal aorta measurements. No aneurysm. [place] EXAM: US SCREENING FOR AAA HISTORY: Reason for exam:->screening COMPARISON: None. TECHNIQUE: Abdominal aortic ultrasound. FINDINGS: No abdominal aortic aneurysm. Proximal aorta 2.1 cm, mid aorta 1.9 cm, distal aorta 1.8 cm in greatest diameter. Right iliac artery 1.1 cm, left iliac artery is 1.2 cm. [place] [employer] Incoming Radiant Results From [employer] - 05/11/2020 2:58 PM EST EXAM: US SCREENING FOR AAA HISTORY: Reason for exam:->screening COMPARISON: None. TECHNIQUE: Abdominal aortic ultrasound. FINDINGS: No abdominal aortic aneurysm. Proximal aorta 2.1 cm, mid aorta 1.9 cm, distal aorta 1.8 cm in greatest diameter. Right iliac artery 1.1 cm, left iliac artery is 1.2 cm. IMPRESSION: Normal abdominal aorta measurements. No aneurysm. [facility] MD CNOVon 12-30-2019 CNOV Office Visit (ORTHAL) ---- TY RODRIGUEZ ([id number]) 1955 M Date Time Provider Department 12/30/19 [...] presents with: Pain (foot): B/L foot pain [id number], painful toes due to arthritis and toes are becoming deformed, here for 2nd opinion PAIN EVALUATION 12/30/2019 1338 Pain Level: 7 Pain Location: ? 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 Patient return to clinic as needed for advanced DJD bilateral feet FOLLOW-UP: Return if symptoms worsen or fail to improve, for B/L advanced DJD bilateral foot. SIGNATURE: Jaclyn Tyler DPM PATIENT NAME: Ty Rodriguez DATE: December 30, 2019 TIME: 1:58 PM Jaclyn Tyler DPM 12/30/2019 2:25 PM Signed [employer] [facility]in [employer] Osteoarthritis of the Foot and Ankle What [...] Pain (foot) [760] Cmt: B/L foot pain [id number], painful toes due to arthritis and toes [...] 12/30/2019 (None) Other instructions from your clinician: MiladRetrotopes = Osteoarthritis of the Foot and Ankle [...] Status:Closed by JACLYN TYLER DPM on 01/06/20 [facility] PROGRESSon 12-30-2019 PROGRESS HNO ID: [id number] Author: Jaclyn Tyler Service: ? Author Type: Physician Type: Progress Notes Filed: 01/06/2020 10:06 PM Note Text: SERVICE DATE: December 30, 2019 PCP: No primary care provider on file. Patient was self-referred. Subjective Patient ID: Ty is a 64 year old male. Chief Complaint: Patient presents with: Pain (foot): B/L foot pain [id number], painful toes due to arthritis and toes are becoming deformed, here for 2nd opinion PAIN EVALUATION 12/30/2019 1338 Pain Level: 7 Pain Location: ? 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 Patient return to clinic as needed for advanced DJD bilateral feet FOLLOW-UP: Return if symptoms worsen or fail to improve, for B/L advanced DJD bilateral foot. SIGNATURE: Jaclyn Tyler DPM PATIENT NAME: Ty Rodriguez DATE: December 30, 2019 TIME: 1:58 PM Normal [facility] PROGRESS HNO ID: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
== END 2023-11-21 10:12 | disposition home or self-care (01) ==
LOC: EC 10:11
PROVIDERS: Visit Provider Podiatrist Foot & Ankle Surgery
DX: M19.072 Primary osteoarthritis, left ankle and foot (principal); M24.675 Ankylosis, left foot
CPT/HCPCS: 73630